=== PATIENT | female | born 1935 | race Caucasian/White ===

== ENCOUNTER → 2016-11-17 | Outpatient (CLI) | payer OTHER | LOC: BHLMT 14:30 | PROVIDERS: ATTEND Internal Medicine Cardiovascular Disease | DX: I25.10 Atherosclerotic heart disease of native coronary artery without angina pectoris (principal); I50.9 Heart failure, unspecified; I05.0 Rheumatic mitral stenosis; I38 Endocarditis, valve unspecified | CPT/HCPCS: 82607-90; 93005-PO ==

== ENCOUNTER 2016-12-10 09:08 | Day surgery (SDC) | payer OTHER ==
[2016-12-10] MEDS ORDERED: NS 1,000 ML IV ONE (09:12)
[2016-12-10] MEDS ORDERED: BENZOCAINE UNIT DOSE SPRAY HURRICAINE MM ONE (09:12)
[2016-12-10] MEDS ORDERED: fentaNYL 100 MCG/2 ML INJ IVP ONE (09:12)
[2016-12-10] MEDS ORDERED: MIDAZOLAM 2 MG/2 ML VIAL IVP ONE (09:12)
[2016-12-10] MEDS ORDERED: PROPOFOL 200 MG/20 ML VIAL IVP ONE (10:38)
--- NOTE | 2016-12-10 10:50 | CPEKG ---
Heart Rate: 84 RR Interval: 714 QRSD Interval: 148 QT Interval: 456 QTC Interval: 540 QRS [place]: -70 T Wave [place]: 111 EKG Severity - ABNORMAL ECG - EKG Impression: ATRIAL FIBRILLATION EKG Impression: LBBB EKG Impression: COMPARED WITH 05/29/2016, AF NOW PRESENT Electronically Signed By: Ludmila Calvo 10-Dec-2016 10:55:14
[2016-12-10] MEDS ORDERED: ATROPINE SULFATE 1 MG/10 ML SYR ONE (10:56)
[2016-12-10 11:02] LABS: APTT 28.2 SEC (23.0-38.0); INR 1.34 (0.83-1.16); PROTIME(PATIENT) 16.6 SEC (12.0-15.0)
[2016-12-10 11:09] LABS: ANION GAP 11 mEq/L (8-16); CARBON DIOXIDE 28 mEq/l (22-31); CHLORIDE 101 mEq/L (97-110); CREATININE 1.4 mg/dL (0.6-1.0); GLOMERULAR FILTRATION RATE 36; GLUCOSE 116 mg/dL (70-100); POTASSIUM 3.3 mEq/L (3.5-5.2); SODIUM 140 mEq/L (134-144)
== END 2016-12-10 13:09 | disposition home or self-care (01) ==
LOC: FCATH 09:08
PROVIDERS: ATTEND Internal Medicine Cardiovascular Disease
PROC: 4A02X4Z Measurement of Cardiac Electrical Activity, External Approach (ICD-10-PCS; principal; 2016-12-10)
DX: I48.0 Paroxysmal atrial fibrillation (principal); Z53.09 Procedure and treatment not carried out because of other contraindication; E87.6 Hypokalemia; I34.2 Nonrheumatic mitral (valve) stenosis; Z95.4 Presence of other heart-valve replacement; I25.10 Atherosclerotic heart disease of native coronary artery without angina pectoris; Z95.5 Presence of coronary angioplasty implant and graft; I42.9 Cardiomyopathy, unspecified; I50.22 Chronic systolic (congestive) heart failure; I27.2 Other secondary pulmonary hypertension; N18.9 Chronic kidney disease, unspecified
CPT/HCPCS: J0461; J2250; J3010

== ENCOUNTER 2016-12-12 12:24 | Day surgery (SDC) | payer OTHER ==
[2016-12-12] MEDS ORDERED: PROPOFOL 200 MG/20 ML VIAL IVP ONE (12:26)
[2016-12-12] MEDS ORDERED: BENZOCAINE UNIT DOSE SPRAY HURRICAINE MM ONE (12:26)
[2016-12-12] MEDS ORDERED: fentaNYL 100 MCG/2 ML INJ IVP ONE (12:26)
[2016-12-12] MEDS ORDERED: NS 500 ML IV ONE (12:26)
[2016-12-12] MEDS ORDERED: MIDAZOLAM 2 MG/2 ML VIAL IVP ONE (12:26)
--- NOTE | 2016-12-12 12:48 | CPEKG ---
Heart Rate: 101 RR Interval: 594 P-R Interval: 176 QRSD Interval: 140 QT Interval: 420 QTC Interval: 545 P [place]: 0 QRS [place]: -68 T Wave [place]: 101 EKG Severity - ABNORMAL ECG - EKG Impression: ATRIAL FIBRILLATION EKG Impression: LBBB EKG Impression: LVH WITH SECONDARY REPOLARIZATION ABNORMALITY EKG Impression: COMPARED WITH DEC 10 2016, NO SIG CHANGE Electronically Signed By: Ludmila Calvo 12-Dec-2016 13:48:06
[2016-12-12] MEDS ORDERED: ATROPINE SULFATE 1 MG/10 ML SYR ONE (13:18)
[2016-12-12 13:30] LABS: APTT 27.2 SEC (23.0-38.0); INR 1.26 (0.83-1.16); PROTIME(PATIENT) 15.8 SEC (12.0-15.0)
[2016-12-12 13:41] LABS: ANION GAP 11 mEq/L (8-16); CALCIUM 9.2 mg/dL (8.5-10.4); CARBON DIOXIDE 29 mEq/l (22-31); CHLORIDE 102 mEq/L (97-110); CREATININE 1.4 mg/dL (0.6-1.0); GLOMERULAR FILTRATION RATE 36; GLUCOSE 143 mg/dL (70-100); MAGNESIUM 2.2 mg/dL (1.6-2.3); POTASSIUM 4.2 mEq/L (3.5-5.2); SODIUM 142 mEq/L (134-144)
--- NOTE | 2016-12-12 14:07 | PDTEE1 ---
CÉSAR Cardioversion Procedure Procedure: Electrical Cardioversion, Transesophageal Echo Indications: Atrial Fibrillation Consent: Signed and in Chart Anticoagulation: Eliquis Procedural Details: Pads were placed in anterior-posterior position. CÉSAR probe was advanced and standard images obtained. There is no evidence of left atrial or left atrial appendage thrombus. Synchronized cardioversion attempt #1: 200J Synchronized cardioversion attempt #2: 300J Results: Normal sinus rhythm Conclusions: Successful CÉSAR Cardioversion Patient Problems: Problems Problem Status Onset Acute respiratory failure with hypoxemia Acute Afib Acute Aortic stenosis Acute CAD (coronary artery disease) Acute CHF (congestive heart failure) Acute Chronic Disease Mgmt/Transitional Care Acute DM (diabetes mellitus), type 2 Acute Diabetic leg ulcer Acute H/O heart artery stent Acute Mitral stenosis Acute Obesity (BMI 30-39.9) Acute
--- NOTE | 2016-12-12 14:11 | CPEKG ---
Heart Rate: 65 RR Interval: 923 P-R Interval: 224 QRSD Interval: 140 QT Interval: 480 QTC Interval: 500 P [place]: 71 QRS [place]: -68 T Wave [place]: 105 EKG Severity - ABNORMAL ECG - EKG Impression: SINUS RHYTHM WITH PAC EKG Impression: FIRST DEGREE AV BLOCK EKG Impression: LEFT BUNDLE BRANCH BLOCK EKG Impression: COMPARED WITH 12 DEC 2016 AT 12:46, NSR NOW PRESENT Electronically Signed By: Ludmila Calvo 12-Dec-2016 19:09:23
--- NOTE | 2016-12-16 07:47 | CPEKG ---
Heart Rate: 108 RR Interval: 556 QRSD Interval: 138 QT Interval: 416 QTC Interval: 558 QRS [place]: -74 T Wave [place]: 109 EKG Severity - ABNORMAL ECG - EKG Impression: WIDE COMPLEX TACHYCARDIA EKG Impression: NONSPECIFIC IVCD WITH LAD EKG Impression: MORPHOLOGY OF THE QRS IS IDENTICAL TO SINUS RHYTHM, BUT NO CLEAR "P" WAVES ARE EKG Impression: NOTED. CONSIDER SVT (AVNRT) GIVEN POSSIBLE RETROGRADE "P" IN "T" WAVE Electronically Signed By: Jack Carranza 18-Dec-2016 12:12:09
== END 2016-12-12 15:40 | disposition home or self-care (01) ==
LOC: FCATH 12:24
PROVIDERS: ATTEND Internal Medicine Cardiovascular Disease
PROC: 5A2204Z Restoration of Cardiac Rhythm, Single (ICD-10-PCS; principal; 2016-12-12)
PROC: B245ZZ4 Ultrasonography of Left Heart, Transesophageal (ICD-10-PCS; principal; 2016-12-12)
DX: I48.0 Paroxysmal atrial fibrillation (principal); I08.0 Rheumatic disorders of both mitral and aortic valves; I25.10 Atherosclerotic heart disease of native coronary artery without angina pectoris; I50.23 Acute on chronic systolic (congestive) heart failure; Z95.5 Presence of coronary angioplasty implant and graft; I42.9 Cardiomyopathy, unspecified; I27.2 Other secondary pulmonary hypertension; N18.4 Chronic kidney disease, stage 4 (severe); Z95.2 Presence of prosthetic heart valve; Z79.01 Long term (current) use of anticoagulants
CPT/HCPCS: J0461; J2704

== ENCOUNTER 2017-02-24 09:11 | Inpatient (IN) | payer OTHER ==
--- NOTE | 2017-02-24 09:29 | EDPHY ---
H & P Source: Patient, Family, EMS Exam Limitations: No limitations - Personal History Tetanus Vaccine Date: 01/2015 - Medical/Surgical History Hx Asthma: No Hx Chronic Respiratory Disease: No Hx Diabetes: Yes Hx Cardiac Disease: Yes Hx Renal Disease: No Hx Cirrhosis: No Hx Alcoholism: No Hx HIV/AIDS: No Hx Splenectomy or Spleen Trauma: No Other PMH: diabetes, heart disease, htn, kidney failure - Social History Smoking Status: Never smoked HPI/ROS: CHIEF COMPLAINT: Multiple falls, shoulder pain, weight gain HISTORY OF PRESENT ILLNESS: Patient arrives by EMS. She is seen at time of arrival. The report is of multiple falls over the past 3 days. This morning she fell attempting to step onto a scale while having her adult depends placed on her. She did not strike her head or lose consciousness. She has no headache or neck pain. No chest or back pain. She is complaining of bilateral shoulder pain. She is complaining of bilateral hip pain, left greater than right. [id number] pain. Unable to bear weight due to this. She also has more significant complaints of increasing lower extremity edema with 20 lb of weight gain over the past 1 month. No shortness of breath. No fever or chills. No cough. No urinary complaints. Her daughter is at bedside. 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 She does take Eliquis. No other associated complaints or modifying factors. REVIEW OF SYSTEMS: Ten systems reviewed and are negative unless otherwise noted in the HPI PAST MEDICAL HISTORY: Extensive. Reviewed as documented in the triage summary. Pertinent positives include insulin-dependent diabetic, atrial fibrillation chronic, Eliquis use. Medication list includes Synthroid, Lasix 80 bid, diltiazem, potassium supplements, metolazone, Cymbalta, Lipitor, NovoLog FlexPen 12 units before breakfast, 7 units before lunch, 6 units before supper and Lantus 30 units at bedtime. PCP: Dr. Gonzalez NEPHROLOGY: Dr. Simpson CARDIOLOGY: Dr. Cuevas, appointment with Ruel tomorrow SOCIAL HISTORY: Resides in assisted living at [facility] in [place], [place] FAMILY HISTORY: Noncontributory EXAMINATION General Appearance: Alert, no distress Head: normocephalic, atraumatic. No depression. No Whitten sign. No raccoon eyes. Eyes: Pupils equal and round, no conjunctival pallor or injection. EOMs intact ENT, Mouth: Mucous membranes moist. Airway widely patent. Neck: Normal inspection, supple, non-tender. No crepitus, step-off or deformity. He can ptosis noted Respiratory: Mild rhonchi. Mild crackles. No consolidation or diminishment. No retraction or is stressed Cardiovascular: Irregularly irregular rhythm. Intermittently tachycardic and normal rate. Systolic murmur. Pulses intact distally. Gastrointestinal: Obese abdomen is soft and nondistended. There is a easily reducible periumbilical hernia. No tympany rigidity. Back: non-tender, no bony abnormalities. No tenderness at any level of the spine. Neurological: GCS 15. A&O, nonfocal, strength is 4/5 in all 4 limbs. Skin: Warm and dry. There is extensive cellulitis of the lower extremities below the knees. There is extensive weeping of the lower extremities consistent with venous stasis ulcers. There are stage I pressure ulcers on the entire buttock and sacrum. There is stage I pressure ulcers of the shoulders. Extremities: Nontender, no pedal edema Psychiatric: Mood and affect normal DIFFERENTIAL DIAGNOSES: Including but not limited to congestive heart failure, pulmonary edema, ACS, cellulitis, DVT, stasis ulcers, peripheral edema, shoulder fracture, hip fracture, pneumonia, UTI MDM: 9:20 a.m. Multiple falls with extreme lower extremity edema, extremity cellulitis with venous stasis ulcers that appear to be infected, weight gain of 20 lb over the past month, shoulder and hip pain. I have ordered laboratory studies, CT scans of the head and neck, chest x-ray, x-rays of the shoulders and hips. She also has stage I pressure ulcers of the buttocks and sacrum. Wound cultures are being obtained, blood cultures being obtained. She is awake and alert no acute distress. She does not meet SIRS criteria at this time. Her daughter Sameera is at bedside and has augmented the history of present illness. 10:30 a.m. Leukocytosis with elevated lactic acid. Vital signs remained stable. She still does not meet SIRS criteria. Vancomycin with pharmacy dosing has been ordered. She is in no acute distress. Chest x-ray, shoulder x-ray is, hip x- rays reveal osteoarthritic changes only. No acute fractures. 11:04 a.m. Notified by radiologist Dr. Valdez. DVT studies of the lower extremities are inconclusive. Unable to visualize beyond the common formal veins due to body habitus. 11:50 a.m. Notified by radiologist Dr. Perez. CT scans of the head and neck reveal no acute findings. Chronic changes noted. Proceed with admission to the hospital 11:58 a.m. I discussed case with the hospitalist Dr. Bazzi. Patient will be admitted to Dr. Rene. She is admitted in stable condition. SUPERVISION: Patient was evaluated in conjunction with the supervising physician. Please see their note for details. (Mario Burgos) Constitutional: Initial Vital Signs Temperature (C) 36.5 C 02/24/17 09:43 Heart Rate 90 02/24/17 09:43 Respiratory Rate 18 02/24/17 09:43 Blood Pressure 117/79 02/24/17 09:43 O2 Sat (%) 99 02/24/17 09:43 O2 Delivery Mode Nasal Cannula O2 (L/minute) 2 Allergies/Adverse Reactions: sotalol Allergy (Verified 04/11/15 17:19) Home Medications: Medication Instructions Recorded Atorvastatin Calcium [Lipitor 20 20 mg PO HS 04/11/15 mg (*)] Cyanocobalamin [Vitamin B12 1,000 mcg IM Q30D 04/11/15 1000MCG/ML (*)] Levothyroxine [Synthroid 100 mcg 100 mcg PO DAILY06 04/11/15 (*)] Acetaminophen [Tylenol 325mg (*)] 325 - 650 mg PO Q4-6PRN PRN 03/05/16 Herbals/Supplements -Info Only 1 ea PO DAILY 03/05/16 Insulin Aspart [Novolog Flexpen] 6 unit SQ DAILY@18 03/05/16 Insulin Aspart [Novolog Flexpen] 7 unit SQ DAILY@12 03/05/16 Insulin Aspart [Novolog Flexpen] 12 unit SQ DAILY@03/05/16 Multivitamins [Multivitamin (*)] 1 each PO DAILY 03/05/16 Insulin Glargine [Lantus 100 30 units SC HS 05/26/16 UNITS/ML (*)] Polyethylene Glycol 3350 [Miralax 17 gm PO DAILY PRN #0 pkt 05/29/16 17 gm (*)] Apixaban [Eliquis] 2.5 mg PO BID 05/26/17 Cholecalciferol Vit D3 [Vitamin D3 2,000 units PO DAILY 12/12/16 2000 units tab (OTC)] Furosemide [Lasix 80 MG (*)] 80 mg PO BID@,13 12/12/16 Metolazone 2.5 mg PO TUFR 12/12/16 Potassium Cl [Klor-Con] 20 meq PO TUFR 12/12/16 Promethazine HCl [Phenergan 25mg 25 mg PO Q8HRS PRN 12/12/16 (*)] DULoxetine [Cymbalta 60 MG (*)] 60 mg PO DAILY 02/24/17 Diltiazem [Cardizem Immediate 30 mg PO BID 02/24/17 Release] Docusate Sodium [Colace 100 MG (*)] 100 mg PO BID PRN 02/24/17 Hydrocodone/Acetaminophen [Pearl 1 each PO Q4-6PRN PRN 02/24/17 5/325 (*)] Potassium Cl [Klor-Con] 10 meq PO SUMOWETHSA 02/24/17 Medical Decision Making ED Course/Re-evaluation: I have evaluated and participated in the management of this patient. My co- signature indicates that I have reviewed this chart and that I agree with the findings and the plan of care as documented. My personal history and physical findings include: Long-standing peripheral edema with recent erythema and warmth involving both lower extremities, worse on the left than on the right. No fever. Frequent falls. On examination this is an obese female in no acute distress. Lungs are clear to auscultation. Heart is regular rate and rhythm. Abdomen is soft and nontender. 3+ pitting edema bilateral lower extremities to the knees. Right lower extremity has warmth and erythema. Both legs with weeping. Both legs with signs of venous stasis. She is being admitted with lower extremity cellulitis. I reviewed the laboratory evaluation. She has received antibiotics, vancomycin. She is noted to have kidney disease and dosing is as per pharmacy. She does not meet SIRS criteria. (Nichole Lucero) - Data Points Laboratory Results: Laboratory Results 02/24/17 09:30 02/24/17 09:30 Microbiology Results: MICROBIOLOGY 02/24/17 09:37 Leg - Swab Gram Stain - Final 02/24/17 09:37 Leg - Swab Wound Culture - Preliminary Pseudomonas Aeruginosa Enterococcus Faecalis 02/24/17 09:37 Blood Blood Culture - Preliminary 02/24/17 10:15 Blood Blood Culture - Preliminary Medications Given: Apixaban (Eliquis) 2.5 mg PO BID [facility] Stop: 08/23/17 20:59 Last Admin: 02/26/17 10:09 Dose: 2.5 mg Atorvastatin Calcium (Lipitor) 20 mg PO HS [facility] Stop: 08/23/17 20:59 Last Admin: 02/25/17 20:22 Dose: 20 mg Cholecalciferol (Vitamin D) 2,000 units PO DAILY [facility] Stop: 08/24/17 08:59 Last Admin: 02/26/17 10:09 Dose: 2,000 units Diltiazem HCl (Cardizem Immediate Release) 30 mg PO BID [facility] Stop: 08/23/17 20:59 Last Admin: 02/26/17 10:09 Dose: 30 mg Duloxetine HCl (Cymbalta) 60 mg PO DAILY [facility] Stop: 08/23/17 14:59 Last Admin: 02/26/17 10:09 Dose: 60 mg Furosemide 80 mg/ Dextrose 50 mls @ 100 mls/hr IV BIDDIUR [facility] Stop: 08/23/17 15:44 Last Admin: 02/26/17 10:10 Dose: 50 mls Cefazolin Sodium/Dextrose (Ancef 1 Gm (Premix)) 50 mls @ 200 mls/hr IV Q8HRS [facility] PRN Reason: Protocol Stop: 03/27/17 13:59 Last Admin: 02/26/17 06:15 Dose: 50 mls Insulin Glargine (Lantus Syringe) 30 units SC HS [facility] Stop: 08/23/17 20:59 Last Admin: 02/25/17 21:06 Dose: 30 units Insulin Human Lispro (Humalog Lispro) 6 unit SC DAILY@1800 [facility] Stop: 08/23/17 17:59 Last Admin: 02/25/17 18:40 Dose: 6 units Insulin Human Lispro (Humalog Lispro) 7 unit SC DAILY@1200 [facility] Stop: 08/24/17 11:59 Last Admin: 02/25/17 13:47 Dose: 7 units Insulin Human Lispro (Humalog Lispro) 12 unit SC DAILY@0800 [facility] Stop: 08/24/17 07:59 Last Admin: 02/26/17 10:16 Dose: 12 units Levothyroxine Sodium (Synthroid) 100 mcg PO DAILY06 [facility] Stop: 08/24/17 05:59 Last Admin: 02/26/17 06:15 Dose: 100 mcg Metolazone (Zaroxolyn) 2.5 mg PO TUFR [facility] Stop: 08/23/17 14:59 Last Admin: 02/24/17 16:50 Dose: 2.5 mg Multivitamins (Tab-A-Tolu) 1 each PO DAILY [facility] Stop: 08/24/17 08:59 Last Admin: 02/26/17 10:25 Dose: 1 each Potassium Chloride (Klor-Con) 10 meq PO SUMOWETHSA [facility] Stop: 08/24/17 14:54 Last Admin: 02/25/17 13:44 Dose: 10 meq Potassium Chloride (Klor-Con) 20 meq PO [facility] Stop: 08/23/17 14:59 Last Admin: 02/24/17 16:50 Dose: 20 meq Discontinued Medications Diltiazem HCl (Cardizem Immediate Release) 30 mg PO BID [facility] Stop: 08/23/17 14:59 Last Admin: 02/24/17 19:24 Dose: Not Given Hydromorphone HCl (Dilaudid) 0.5 mg IVP ONCE ONE Stop: 02/24/17 17:13 Last Admin: 02/24/17 17:49 Dose: 0.5 mg Vancomycin HCl 1.25 gm/ (Dextrose) 250 mls @ 166.667 mls/hr IV ONCE ONE Stop: 02/24/17 12:59 Last Admin: 02/24/17 11:51 Dose: 250 mls Metolazone (Zaroxolyn) 2.5 mg PO ONCE ONE Stop: 02/26/17 09:01 Last Admin: 02/26/17 10:09 Dose: 2.5 mg Potassium Chloride (Klor-Con) 20 meq PO ONCE ONE Stop: 02/25/17 09:26 Last Admin: 02/25/17 10:28 Dose: 20 meq Potassium Chloride (Klor-Con) 60 meq PO ONCE ONE Stop: 02/26/17 05:47 Last Admin: 02/26/17 06:15 Dose: 60 meq Vancomycin HCl (Vancomycin Pharmacy To Dose, 10-15 Mcg/Ml) 1 each MISC AD ANAHI PRN Reason: Protocol Stop: 08/23/17 10:14 Last Admin: 02/24/17 11:57 Dose: Not Given Departure - Departure Disposition: [facility] In[facility] Acute Clinical Impression: Edema, peripheral Lower extremity cellulitis Qualifiers: Laterality: unspecified laterality Qualified Code(s): L03.119 - Cellulitis of unspecified part of limb Condition: Good
--- NOTE | 2017-02-24 09:38 | CPEKG ---
Heart Rate: 97 RR Interval: 619 QRSD Interval: 146 QT Interval: 408 QTC Interval: 519 QRS [place]: -74 T Wave [place]: 108 EKG Severity - ABNORMAL ECG - EKG Impression: ATRIAL FIBRILLATION EKG Impression: VENTRICULAR PREMATURE COMPLEX EKG Impression: NONSPECIFIC IVCD WITH LAD EKG Impression: LVH WITH SECONDARY REPOLARIZATION ABNORMALITY Electronically Signed By: Nichole Lucero 24-Feb-2017 17:09:39
[2017-02-24 09:50] LABS: % IMMATURE GRANULYOCYTES 0.4 % (0.0-1.1); ABSOLUTE IMMATURE GRANULOCYTES 0.06 10^3/uL (0.00-0.10); ADD DIFF? NO; ADD MORPH? YES; ADD SCAN? NO; ATYPICAL LYMPHOCYTE FLAG 0 (0-99); FRAGMENT RBC FLAG 20 (0-99); HEMATOCRIT 36.2 % (38.0-47.0); HEMOGLOBIN 11.3 g/dL (12.6-16.3); LEFT SHIFT FLG 0 (0-99); LIPEMIA HEMOLYSIS FLAG 80 (0-99); MEAN CELL HEMOGLOBIN 26.3 pg (27.9-34.1); MEAN CELL HEMOGLOBIN CONCENTR. 31.2 g/dL (32.4-36.7); MEAN CELL VOLUME 84.4 fL (81.5-99.8); MEAN PLATELET VOLUME 10.1 fL (8.7-11.7); PLATELET CLUMPS FLAG 20 (0-99); PLATELET COUNT 256 10^3/uL (150-400); RED BLOOD CELL COUNT 4.29 10^6/uL (4.18-5.33)
[2017-02-24 09:53] LABS: RED CELL DISTRIBUTION WIDTH 20.5 % (11.5-15.2)
[2017-02-24 09:59] LABS: APTT 29.6 SEC (23.0-38.0); INR 1.4 (0.83-1.16); PROTIME(PATIENT) 17.1 SEC (12.0-15.0)
[2017-02-24 10:06] LABS: ALANINE AMINOTRANSFERASE 38 IU/L (9-52); ALBUMIN 3.9 g/dL (3.5-5.0); ALKALINE PHOSPHATASE 125 IU/L (38-126); ANION GAP 18 mEq/L (8-16); ASPARTATE AMINOTRANSFERASE 34 IU/L (14-46); BILIRUBIN,TOTAL 0.8 mg/dL (0.1-1.4); BILIRUBIN-CONJUGATED 0.4 mg/dL (0.0-0.5); BILIRUBIN-UNCONJUGATED 0.4 mg/dL (0.0-1.1); CALCIUM 9.2 mg/dL (8.5-10.4); CARBON DIOXIDE 26 mEq/l (22-31); CHLORIDE 92 mEq/L (97-110); CREATININE 1.9 mg/dL (0.6-1.0); GLOMERULAR FILTRATION RATE 25; GLUCOSE 198 mg/dL (70-100); POTASSIUM 3.4 mEq/L (3.5-5.2); SODIUM 136 mEq/L (134-144); TOTAL PROTEIN 7.2 g/dL (6.3-8.2)
[2017-02-24 10:28] LABS: HYPOCHROMIA 1+; PLATELET ESTIMATE ADEQUATE (ADEQ); POLYCHROMASIA 1+
[2017-02-24 10:46] LABS: LACGHOST ORDER
[2017-02-24] MEDS ORDERED: VANCOMYCIN 1.25 GM in D5W 250 ML IV ONE (11:30)
[2017-02-24] MEDS ORDERED: ONDANSETRON 4 MG/2 ML VIAL IVP PRN (14:52)
[2017-02-24] MEDS ORDERED: ONDANSETRON DISINTEGRATING 4 MG TAB PO PRN (14:52)
[2017-02-24] MEDS ORDERED: POLYETHYLENE GLYCOL 3350 17 GM PKT PO PRN (14:55)
[2017-02-24] MEDS ORDERED: DOCUSATE SODIUM 100 MG CAP PO PRN (14:55)
[2017-02-24] MEDS ORDERED: PROMETHAZINE HCL 25 MG TAB PO PRN (14:55)
[2017-02-24] MEDS ORDERED: DILTIAZEM 30 MG TAB PO SCH (15:00)
[2017-02-24] MEDS ORDERED: METOLAZONE 2.5 MG TAB PO SCH (15:00)
[2017-02-24] MEDS ORDERED: FUROSEMIDE 100 MG/10 ML VIAL IVP SCH (15:00)
--- NOTE | 2017-02-24 15:06 | PDGENHP ---
History and Physical - Chief Complaint acute fall - History of Present Illness primary care provider: Dr. Abdi Gonzalez Primary analytical data miner: Dr. Darnell Cuevas Primary snow removal/plowing: Dr. Ramirez Simpson HPI: 81-year-old female presenting with acute fall characterized as mechanical and in the setting of weakness, occurring the day of presentation, in the context of several days of generalized weakness and falls. The patient's daughter provides the majority of the history, and reports that for approximately 1 week, the patient's lower extremities have become somewhat more erythematous and are demonstrating more skin breakdown, particularly on the left lower extremity anterior surface. She has attempted to continue to wrap the lower extremities and has also receive some advice to use compression stockings from her snow removal/plowing. These compression stockings seemed to have alleviated some of the edema but the level of edema seems to have persisted since the onset around June of 2016. Daughter reports that she has had intermittent incontinence, but over the past week the patient has been completely incontinent, which is unusual for her. Patient otherwise denies any dysuria. The patient denies any overt chest pain, usually experiences shortness of breath with physical activity and physical therapy. On the day of this presentation, the patient's physical therapist noted that her cognition seems to be slightly impaired. The patient's daughter also notes skin breakdown in the perineal folds and under her pannus, which has been unchanged after nystatin powder, seems to be somewhat alleviated by taking acidophilus. Patient has otherwise been taking all of her diuretics as scheduled, but has not taken any medications on the morning of this presentation. The patient has a scheduled appointment with Ruel Green tomorrow at [facility], but the patient sought medical attention today after she experienced another fall and there were concerns about her ambulatory abilities. History Information - Allergies/Home Medication List Allergies/Adverse Reactions: sotalol Allergy (Verified 04/11/15 17:19) Home Medications: Atorvastatin Calcium [Lipitor 20 mg (*)] 20 mg PO HS 04/11/15 [Last Taken ] Cyanocobalamin [Vitamin B12 1000MCG/ML (*)] 1,000 mcg IM Q30D 04/11/15 [Last Taken 01/28/17] Levothyroxine [Synthroid 100 mcg (*)] 100 mcg PO DAILY06 04/11/15 [Last Taken ] Acetaminophen [Tylenol 325mg (*)] 325 - 650 mg PO Q4-6PRN PRN 03/05/16 [Last Taken 04/08/16] Herbals/Supplements -Info Only 1 ea PO DAILY 03/05/16 [Last Taken 12/09/16] Insulin Aspart [Novolog Flexpen] 6 unit SQ DAILY@18 03/05/16 [Last Taken ] Insulin Aspart [Novolog Flexpen] 7 unit SQ DAILY@12 03/05/16 [Last Taken ] Insulin Aspart [Novolog Flexpen] 12 unit SQ DAILY@08 03/05/16 [Last Taken ] Multivitamins [Multivitamin (*)] 1 each PO DAILY 03/05/16 [Last Taken 02/23/17] Insulin Glargine [Lantus 100 UNITS/ML (*)] 30 units SC HS 05/26/16 [Last Taken 02/23/17] Apixaban [Eliquis] 2.5 mg PO BID 12/12/16 [Last Taken 02/23/17 21:00] Cholecalciferol Vit D3 [Vitamin D3 2000 units tab (OTC)] 2,000 units PO DAILY [Last Taken 02/23/17] Furosemide [Lasix 80 MG (*)] 80 mg PO BID@12/12/16 [Last Taken 02/23/17 13 :00] Metolazone 2.5 mg PO TUFR 12/12/16 [Last Taken 02/21/17] Potassium Cl [Klor-Con] 20 meq PO FR 12/12/16 [Last Taken 02/20/17] Promethazine HCl [Phenergan 25mg (*)] 25 mg PO Q8HRS PRN 12/12/16 [Last Taken ] DULoxetine [Cymbalta 60 MG (*)] 60 mg PO DAILY 02/24/17 [Last Taken 02/23/17] Diltiazem [Cardizem Immediate Release] 30 mg PO BID 02/24/17 [Last Taken 21:00] Docusate Sodium [Colace 100 MG (*)] 100 mg PO BID PRN 02/24/17 [Last Taken 02/23] Hydrocodone/Acetaminophen [Vale 5/325 (*)] 1 each PO Q4-6PRN PRN 02/24/17 [ Last Taken 02/24/17] Potassium Cl [Klor-Con] 10 meq PO SUMOWETHSA 02/24/17 [Last Taken 02/23/17] I have personally reviewed and updated: family history, medical history, social history, surgical history - Past Medical History Additional medical history: CAD s/p PCI. PermanentAfib on eliquis and failed DCCV 12/03. systolic CHF, Ef 40%-50%. CKD stage 3 (baseline 1.9). Aortic stenosis s/p TAVR (06/2015). severe pulmonary HTN. s/p Vfib cardiac arrest ( 2010). h/o fall resulting in b/l intracranial hemorrhages, managed nonoperatively. hypothyroidism. chronic venous stasis. localized uterine ca - Surgical History Additional surgical history: hysterectomy (for localized uterine ca, 2006). b/ l total knee replacements. TAVR 2014. DC cardioversion and transesophageal echocardiogram November of 2016 - Family History Additional family history: M: CAD. S: cancer, alzheimer's - Social History Smoking Status: Never smoked Alcohol Use: None Drug Use: None Additional social history: Pt currently resides at [facility], has a daughter that is involved and lives nearby. Uses a walker to ambulate Review of Systems ROS: 10pt was reviewed & negative except for what was stated in HPI & below Constitutional: Reports: weakness Respiratory: Reports: shortness of breath Genitourinary: Reports: incontinence Skin: Reports: other (erythema, weeping, ulcerations bilat LE) Physical Exam Temp Pulse Resp BP Pulse Ox 36.4 C 87 13 130/70 H 98 02/24/17 13:51 02/24/17 13:51 02/24/17 13:51 02/24/17 13:51 02/24/17 13:51 O2 (L/minute) 2 Constitutional: no apparent distress, not in pain, chronically ill appearing, obese, No uncomfortable Eyes: PERRL, anicteric sclera, EOMI Ears, Nose, Mouth, Throat: hearing normal, dry mucous membranes Cardiovascular: systolic murmur (II/ at sternum), irregularly irregular, JVD, edema (2+ bilat LE), No tachycardia Respiratory: no respiratory distress, inspiratory crackles (faint), No expiratory wheeze, No bronchial breath sounds Gastrointestinal: normoactive bowel sounds, soft, non-tender abdomen, no palpable masses, other (non-tender umbilical hernia) Skin: other (blanching erythema bilat calves w/ ulcerations on LLE and pustulent exudate, weeping) Musculoskeletal: other (ROM limited bilat ankles 2/2 edema, non-tender) Neurologic: sensation intact bilaterally, weakness (motor 3/5 bilat LE), other ( AAOx2 (person and time, not place)) Psychiatric: interacting appropriately, not anxious, not encephalopathic, thought process linear Lab Data & Imaging Review 02/24/17 09:30 02/24/17 09:30 WBC 14.13 10^3/uL (3.80-9.50) H 02/24/17 09:30 RBC 4.29 10^6/uL (4.18-5.33) 02/24/17 09:30 Hgb 11.3 g/dL (12.6-16.3) L 02/24/17 09:30 Hct 36.2 % (38.0-47.0) L 02/24/17 09:30 MCV 84.4 fL (81.5-99.8) 02/24/17 09:30 MCH 26.3 pg (27.9-34.1) L 02/24/17 09:30 MCHC 31.2 g/dL (32.4-36.7) L 02/24/17 09:30 RDW 20.5 % (11.5-15.2) H 02/24/17 09:30 Plt Count 256 10^3/uL (150-400) 02/24/17 09:30 MPV 10.1 fL (8.7-11.7) 02/24/17 09:30 Neut % (Auto) 83.9 % (39.3-74.2) H 02/24/17 09:30 Lymph % (Auto) 9.3 % (15.0-45.0) L 02/24/17 09:30 [place] % (Auto) 5.5 % (4.5-13.0) 02/24/17 09:30 Eos % (Auto) 0.5 % (0.6-7.6) L 02/24/17 09:30 Baso % (Auto) 0.4 % (0.3-1.7) 02/24/17 09:30 Nucleat RBC Rel Count 0.0 % (0.0-0.2) 02/24/17 09:30 Absolute Neuts (auto) 11.86 10^3/uL (1.70-6.50) H 02/24/17 09:30 Absolute Lymphs (auto) 1.31 10^3/uL (1.00-3.00) 02/24/17 09:30 Absolute Monos (auto) 0.78 10^3/uL (0.30-0.80) 02/24/17 09:30 Absolute Eos (auto) 0.07 10^3/uL (0.03-0.40) 02/24/17 09:30 Absolute Basos (auto) 0.05 10^3/uL (0.02-0.10) 02/24/17 09:30 Absolute Nucleated RBC 0.00 10^3/uL (0-0.01) 02/24/17 09:30 Immature Gran % 0.4 % (0.0-1.1) 02/24/17 09:30 Immature Gran # 0.06 10^3/uL (0.00-0.10) 02/24/17 09:30 Platelet Estimate ADEQUATE (ADEQ) 02/24/17 09:30 Polychromasia 1+ H 02/24/17 09:30 Hypochromasia 1+ H 02/24/17 09:30 PT 17.1 SEC (12.0-15.0) H 02/24/17 09:30 INR 1.40 (0.83-1.16) H 02/24/17 09:30 APTT 29.6 SEC (23.0-38.0) 02/24/17 09:30 VBG Lactic Acid 1.3 mmol/L (0.7-2.1) 02/24/17 11:38 Sodium 136 mEq/L (134-144) 02/24/17 09:30 Potassium 3.4 mEq/L (3.5-5.2) L 02/24/17 09:30 Chloride 92 mEq/L (97-110) L 02/24/17 09:30 Carbon Dioxide 26 mEq/l (22-31) 02/24/17 09:30 Anion Gap 18 mEq/L (8-16) H 02/24/17 09:30 BUN 55 mg/dL (7-23) H 02/24/17 09:30 Creatinine 1.9 mg/dL (0.6-1.0) H 02/24/17 09:30 Estimated GFR 25 02/24/17 09:30 Glucose 198 mg/dL (70-100) H 02/24/17 09:30 Calcium 9.2 mg/dL (8.5-10.4) 02/24/17 09:30 Total Bilirubin 0.8 mg/dL (0.1-1.4) 02/24/17 09:30 Conjugated Bilirubin 0.4 mg/dL (0.0-0.5) 02/24/17 09:30 Unconjugated Bilirubin 0.4 mg/dL (0.0-1.1) 02/24/17 09:30 AST 34 IU/L (14-46) 02/24/17 09:30 ALT 38 IU/L (9-52) 02/24/17 09:30 Alkaline Phosphatase 125 IU/L (38-126) 02/24/17 09:30 Troponin I 0.090 ng/mL (0-0.034) H 02/24/17 09:30 NT-Pro-B Natriuret Pep 6650 pg/mL (0-450) H 02/24/17 09:30 Total Protein 7.2 g/dL (6.3-8.2) 02/24/17 09:30 Albumin 3.9 g/dL (3.5-5.0) 02/24/17 09:30 Lipase 65.0 IU/L (23-300) 02/24/17 09:30 Visualized and Interpreted Chest x-ray results: Yes Chest X-Ray results: other (chronic pulm vasc distension) Visualized and Interpreted EKG results: Yes EKG Interpretation: Positive for: other (Afib, IVCD) Assessment & Plan Assessment: 81-year-old female presenting with acute cellulitis in the setting of chronic venous stasis, acute systolic CHF exacerbation. Plan: 1. Cellulitis. Acute, evidenced by leukocytosis, worsening erythema and ulcerations on the left lower extremity, in the setting of venous stasis and propensity for developing cellulitis -wound care consultation -infectious Disease consultation requested, given the patient is a wound care clinic patient -reviewed outside records including 09/23/[address] Dr. Natali Arce , reporting the patient has venous insufficiency, no cellulitis at that time, recommended wrapping the wounds regularly -IV vancomycin administered in the emergency department given the patient's frequency of exposure to the healthcare setting and risk of MRSA, continue -blood culture sent, pending -I suspect there is not underlying DVT given the patient is on systemic anticoagulation 2. systolic congestive heart failure exacerbation. Acute on chronic, new problem this provider, further workup indicated. Evidenced by weight gain of 3.5 kg from her discharge weight on 12/12/2016 at her cardioversion, increased lower extremity edema, increased abdominal girth, pulmonary vascular changes on chest x-ray, BNP 6500 - discussed with Dr. Jack Carranza, cardiology consultation appreciated -patient has been adherent to her outpatient diuretics and may need dose titration after we diurese off several kg of water weight -give 80 mg of IV Lasix now with her Thursday dosage of 2.5 mg metolazone, continue IV Lasix twice daily and titrate based on cardiology recommendations -get echocardiogram to gauge ejection fraction, last ejection fraction 40-50% -monitor daily weights 3. Chronic kidney disease stage 3. Baseline creatinine is 1.5-2.0, currently at 1.9 with an elevated BUN, potentially demonstrating poor renal perfusion in the setting of CHF exacerbation -monitor renal function closely while diuresing aggressively - discussed with patient, daughter, nurse, agree that Avelar catheter may be necessary for strict I& O monitoring in the setting of worsening incontinence, patient is currently considering -monitor strict I&Os 4. permanent atrial fibrillation. Patient's most recent cardioversion was unsuccessful, and she is currently in atrial fibrillation on EKG, continue her low-dose diltiazem and systemic anticoagulation 5. diabetes mellitus type 2. Continue home dosage of insulin 6. Coronary artery disease. Chronic, currently no chest pain, her troponin level is 0.09 in the setting of CHF, indicating high risk of morbidity and/or mortality, continue to monitor closely on telemetry 7. Venous stasis. Chronic, wound care consultation appreciated Diet. Cardiac diet Prophylaxis. High risk patient, renally dosed Eliquis Code. Do not resuscitate per patient, her daughter is her MPOA Disposition. Anticipated discharge uncertain this time, anticipated length stay is greater than 48 hours warranting inpatient admission status for reasonable medical necessity including acute cellulitis in the setting of acute systolic CHF exacerbation. Discussed with Mario Burgos, emergency department provider, he has shared with me patient's most updated version of home medications.
--- NOTE | 2017-02-24 16:31 | PDCARPN ---
Cardiology Progress Note Chief Complaint: Patient was rather somnolent today, but voiced no clear cardiovascular complaints Assessment/Plan: Assessment: Patient is an 81 y/o female, well known to [facility], with history of valvular heart disease s/p TAVR (2014), CAD with non critical lesions, CMP (EF of 45% in the past with documentation of improvement post TAVR to 55%), CHF ( history), pHTN (60 mm Hg), pAF, now thought to more permanent, HTN, DM with neuropathy, HLP, and arthritis (affecting shoulders and hips), and renal insufficiency, who presented to [facility] after fall. Vast majority of the history was provided by daughter, present with the patient in her room today. As a result of the pain from the fall, the patient was given an extra dose of pain medication at home, which may contribute to some degree of the somnolence noted. No voiced complaints of chest pains or pressure. No PND or orthopnea. Ongoing issues with bilateral lower extremity cellulitis (and infectious disease has been consulted). Weight gain of over 10 pounds has been noted, with bilateral lower extremity edema to above the knee. Bedside echocardiography with EF of 45-55% (somewhat limited windows given patient's body position). Unchanged RVSP from prior echo. More RV dilation was noted and as a result, more TR (mild in past, more moderate at present). Outpatient office note from 01-19-17 was reviewed with the daughter today. At that time, the patient was doing well. Plan: (1) Agree with plan for IV diuresis - patient to have Avelar placed (2) ID consultation has been rendered and IV antibiotics have been started (3) Maintain therapy on statins for history of HLP (4) Eliquis was started after issues with bleeding noted with coumadin. Would continue this therapy for CVA prophylaxis given chronic atrial fibrillation (5) Aggressive DM control should be continued (6) Cardizem should continue for history of HTN. Some rate control assistance is noted with this therapy as well (7) Would consider nephrology input over hospital stay given chronic renal insufficiency history. Will follow patient through hospital stay Subjective: No cardiovascular complaints. Reviewed/Discussed With: family, hospitalist, multidisciplinary team Objective: Vital Signs (8 Hrs) Temp Pulse Resp BP Pulse Ox 02/24/17 13:51 36.4 C 87 13 130/70 H 98 02/24/17 12:38 89 16 131/78 H 92 Intake/Output (24 Hrs) 02/23/17 02/24/17 02/25/17 05:59 05:59 05:59 Intake Total 250 Balance 250 Intake: IV Infused (ml) 250 Other: Weight 113 kg Result Diagrams: 02/24/17 09:30 02/24/17 09:30 EKG: atrial fibrillation with IVCD Echocardiogram: low normal LVEF (45-50%). Moderate TR with unchanged RVSP. Moderate RV dilation (from mild in past). - Physical Exam Constitutional: no apparent distress, obese Eyes: PERRL, EOMI Ears, Nose, Mouth, Throat: moist mucous membranes Cardiovascular: systolic murmur, irregularly irregular, jugular vein distention Peripheral Pulses: 1+: dorsalis-pedis (R), dorsalis-pedis (L) Respiratory: reduced air movement Gastrointestinal: normoactive bowel sounds, no tenderness Skin: no rashes, other (2 bilateral pitting edema to BLE) Neurologic: AAOx3, CN II-XII grossly intact Psychiatric: cooperative, interactive, encephalopathic ICD10 Worksheet Patient Problems: Problems Problem Status Onset Edema, peripheral Acute Lower extremity cellulitis Acute Acute respiratory failure with hypoxemia Acute Afib Acute Aortic stenosis Acute CAD (coronary artery disease) Acute CHF (congestive heart failure) Acute Chronic Disease Mgmt/Transitional Care Acute DM (diabetes mellitus), type 2 Acute Diabetic leg ulcer Acute H/O heart artery stent Acute Mitral stenosis Acute Obesity (BMI 30-39.9) Acute
[2017-02-24] MEDS: POTASSIUM CL 10 MEQ TAB PO SCH (16:50)
[2017-02-24] MEDS: DULoxetine 60 MG CAP PO SCH (16:50)
[2017-02-24] MEDS: FUROSEMIDE 80 MG in D5W 50 ML IV SCH (16:51)
[2017-02-24] MEDS ORDERED: HYDROmorphONE/DILAUDID 1 MG/ML SYR IVP ONE (17:12)
[2017-02-24] MEDS ORDERED: INSULIN ASPART 6 UNIT SQ SCH (18:00)
[2017-02-24 19:02] LABS: COLOR YELLOW; LEUKOCYTE ESTERASE,URINE 3+ (NEGATIVE); NITRITE,URINE NEGATIVE (NEGATIVE)
[2017-02-24 19:16] LABS: BACTERIA 3+ /hpf (NONE SEEN); HYALINE CASTS 25-50 /lpf (0-1); WBC,URINE 50-182 /hpf (0-3)
[2017-02-24] MEDS: INSULIN LISPRO 100 UNIT/ML SC SCH (19:24)
[2017-02-24] MEDS: ATORVASTATIN CALCIUM 20 MG TAB PO SCH (20:52)
[2017-02-24] MEDS: APIXABAN 2.5 MG TAB PO SCH (20:52)
[2017-02-24] MEDS: DILTIAZEM 30 MG TAB PO SCH (20:53)
[2017-02-24] MEDS: INSULIN GLARGINE 100 UNITS/ML SYRINGE SC SCH (22:09)
[2017-02-25 05:24] LABS: % IMMATURE GRANULYOCYTES 0.8 % (0.0-1.1); ABSOLUTE IMMATURE GRANULOCYTES 0.09 10^3/uL (0.00-0.10); ADD DIFF? NO; ADD MORPH? NO; ADD SCAN? NO; ATYPICAL LYMPHOCYTE FLAG 10 (0-99); FRAGMENT RBC FLAG 20 (0-99); HEMATOCRIT 32.8 % (38.0-47.0); HEMOGLOBIN 10.3 g/dL (12.6-16.3); LEFT SHIFT FLG 0 (0-99); LIPEMIA HEMOLYSIS FLAG 80 (0-99); MEAN CELL HEMOGLOBIN 26.1 pg (27.9-34.1); MEAN CELL HEMOGLOBIN CONCENTR. 31.4 g/dL (32.4-36.7); MEAN CELL VOLUME 83.2 fL (81.5-99.8); MEAN PLATELET VOLUME 10.2 fL (8.7-11.7); PLATELET CLUMPS FLAG 0 (0-99); PLATELET COUNT 239 10^3/uL (150-400); RED BLOOD CELL COUNT 3.94 10^6/uL (4.18-5.33)
[2017-02-25 05:34] LABS: ANION GAP 13 mEq/L (8-16); CALCIUM 8.6 mg/dL (8.5-10.4); CARBON DIOXIDE 27 mEq/l (22-31); CHLORIDE 95 mEq/L (97-110); CREATININE 1.7 mg/dL (0.6-1.0); GLOMERULAR FILTRATION RATE 29; GLUCOSE 107 mg/dL (70-100); POTASSIUM 3.2 mEq/L (3.5-5.2); SODIUM 135 mEq/L (134-144)
[2017-02-25] MEDS ORDERED: INSULIN ASPART 12 UNIT SQ SCH (08:00)
[2017-02-25] MEDS: INSULIN LISPRO 100 UNIT/ML SC SCH ×3 (08:37→18:40)
[2017-02-25] MEDS: FUROSEMIDE 80 MG in D5W 50 ML IV SCH ×2 (08:38→15:48)
[2017-02-25] MEDS: DULoxetine 60 MG CAP PO SCH (08:44)
[2017-02-25] MEDS: DILTIAZEM 30 MG TAB PO SCH ×2 (08:44→20:22)
[2017-02-25] MEDS: LEVOTHYROXINE 100 MCG TAB PO SCH (08:44)
[2017-02-25] MEDS: APIXABAN 2.5 MG TAB PO SCH ×2 (08:44→20:22)
[2017-02-25] MEDS: CHOLECALCIFEROL VIT D3 2,000 UNITS TAB/CAP PO SCH (08:44)
[2017-02-25] MEDS: MULTIVITAMINS 1 EACH TAB PO SCH (08:44)
[2017-02-25] MEDS ORDERED: Herbals/Supplements -Info Only PO SCH (09:00)
[2017-02-25] MEDS ORDERED: POTASSIUM CL 20 MEQ TAB PO ONE (09:25)
--- NOTE | 2017-02-25 09:57 | ECHO ---
[id number] + + [phone] : : [place] [id number] : : [phone] + Adult Echocardiographic Report + --+ :Name: GRIFFIN SMYTH JStudy Date: 02/24/2017 03:41 PM : : Hospital Admission Number: [id number] Location: 2 16: :: 1935 Gender: Female Height: 65 in : :Age: 81 yrs Race: WH Weight: 250 lb : :Reason For Study: Eval EF/TAVR : : BSA: 2.2 meters2 : + --+ MMode/2D Measurements \T\ Calculations LVIDd: 4.5 cm EDV(Teich): 91.2 ml Ao root diam: 3.1 cm LA dimension: 4.2 cm Normal Measurement Values: + + :LVIDd (3.5-5.7cm) IVSd (0.6-1.1cm) LVPWd (0.6-1.1cm) Aortic Root (2.0-3.7cm)Left Atrium (1.5-4.0cm): :LV Vol(d) (76-115ml) LV Vol(s) (29-48ml) Ejec Fraction (50-65%)PV Juan Manuel (0.6- 1.2m/s) TV Juan Manuel (0.4-1.0m/s) : :MV E Juan Manuel (0.8-1.0m/s)MV A Juan Manuel (0.3-1.0m/s)LVOT Juan Manuel (0.7-1.2m/s) Asc Ao Juan Manuel ( 0.9-1.8m/s) : + + Doppler Measurements \T\ Calculations MV dec time: MV V2 max: MV P1/2t max juan manuel: TR max juan manuel: 0.26 sec 188.6 cm/sec 203.8 cm/sec 344.8 cm/sec MV max PG: MV P1/2t: 100.5 msec TR max P.2 mmHg MVA(P1/2t): 2.2 cm2 47.6 mmHg MV V2 mean: MV dec slope: RAP systole: 122.3 cm/sec 10.0 mmHg MV mean P.0 cm/sec2 RVSP(TR): 6.8 mmHg 57.6 mmHg MV V2 VTI: 46.8 cm Left Ventricle The left ventricle is normal in size. There is normal left ventricular wall thickness. Ejection Fraction = 45-50%. Flattened septum is consistent with RV pressure/volume overload. Right Ventricle The right ventricle is moderately dilated. The right ventricular systolic function is moderate to severely reduced. Atria The left atrium is mildly dilated. The right atrium is moderately dilated. The interatrial septum is intact with no evidence for an atrial septal defect. Mitral Valve There is severe mitral annular calcification. There is mild to moderate mitral stenosis. MV mean PG is 6mmHG. MV max PG is 14mmHG (probable underestimated due to angle). There is mild mitral regurgitation. Tricuspid Valve Normal tricuspid valve. There is moderate to severe tricuspid regurgitation. Right ventricular systolic pressure is 58mmHg. Aortic Valve There is no aortic stenosis. There is a 26mm Lindo Saptien TAVR aortic valve present. No accurate mean gradient was obtained but velocities are normal. Pulmonic Valve The pulmonic valve is normal in structure and function. Trace pulmonic valvular regurgitation. Great Vessels The aortic root is normal size. Pericardium/Pleural Fat pad vs. trace anterior pericardial effusion. Conclusion A complete two-dimensional transthoracic echocardiogram was performed (2D, M-mode, Doppler and color flow Doppler). Technically limited study. Ejection Fraction = 45-50%. Flattened septum is consistent with RV pressure/volume overload. The right ventricle is moderately dilated. The right ventricular systolic function is moderate to severely reduced. The left atrium is mildly dilated. The right atrium is moderately dilated. There is severe mitral annular calcification. MV mean PG is 6mmHG. MV max PG is 14mmHG (probable underestimated due to angle). There is mild mitral regurgitation. There is moderate to severe tricuspid regurgitation. Right ventricular systolic pressure is 58mmHg. There is a 26mm Lindo Saptien TAVR aortic valve present. No accurate mean gradient was obtained but velocities are normal. Trace pulmonic valvular regurgitation. Fat pad vs. trace anterior pericardial effusion. Final Reading Physician: Jersey Steele signed on 02/25/2017 09:56 AM Ordering Physician: Jack Rene Performed By: Deepika Timmons RDCS
--- NOTE | 2017-02-25 10:33 | PCMIDPN ---
Assessment/Plan: # RLE cellulitis: difficult exam with CHERELLE due to chronic venous insufficiency as well as other reasons for CHERELLE including RHF, renal insuf - but disproportionate exam with blanching erythema on the right in stocking distribution and mild elevation WBC on admit. Wound cultures shows NLF GNR but doubt this is etiology of cellulitis, suspect streptococcus most strongly as cause of infection and suspect NLF GNR is colonizer of wounds. --dc vancomycin --start cefazolin --elevated LE --wound care consult #ARF - slightly above baseline at admit, trending down medication vancomycin IV, # 1 microbiology 02/24/2017 blood cultures ( 2) pending 02/24/2017 wound cultures 3+ non lactose fermenting gram-negative kane Care coordinated with Dr. Rene Subjective: 81 y/o female, h/o valvular heart disease s/p TAVR, CAD, CHF, pulm HTN , AF, HTN, DM with neuropathy, LE venous insufficiency, and renal insufficiency who was brought to ER last night after multiple falls. I previously saw patient in wound care for management of lower extremity venous insufficiency and venous stasis ulcers. Upon evaluation in the emergency room last night it was felt that she had bilateral lower extremity cellulitis and was started on IV vancomycin. Patient has no complaints of her lower extremities Today. Objective: Vital Signs Temp Pulse Resp BP Pulse Ox 36.6 C 95 20 122/72 H 95 02/25/17 07:59 02/25/17 07:59 02/25/17 07:59 02/25/17 08:44 02/25/17 07:59 Laboratory Results 02/25/17 04:23 02/25/17 04:23 02/24/17 02/25/17 02/26/17 05:59 05:59 05:59 Intake Total 2970 150 :Balance 2970 150 CXR: prominent pulmonary vascularity, enlarged CMS Head CT: chr microvascular disease, no acute change B DVT study negative PE afebrile throughout hospital course General: Obese woman lying in bed no acute distress HEENT dry mucous membranes, fair dentition cardiovascular: Irregularly irregular, systolic murmur Chest: breathing easy, decreased bs bases abdomen: Soft nontender bowel sounds present : No Avelar Extremity exam: bilateral lower extremity edema, 3+ ; stocking distribution erythema right lower extremity, some chronic pinkness of the left lower extremity but does not appear cellulitic. superficial venous stasis ulcer, 2 cm left lateral ankle and 1 cm wound right lateral ankle . Lower extremity pulses nonpalpable, normal capillary refill. Skin: no rashes other than noted above - Time Spent With Patient Time Spent with Patient: greater than 35 minutes Time Spent with Patient: Greater than 35 minutes spent on this patients care, greater than 50% of time spent counseling, educating, and coordinating care regarding the above mentioned plan. ICD10 Worksheet Patient Problems: Problems Problem Status Onset Edema, peripheral Acute Lower extremity cellulitis Acute Acute respiratory failure with hypoxemia Acute Afib Acute Aortic stenosis Acute CAD (coronary artery disease) Acute CHF (congestive heart failure) Acute Chronic Disease Mgmt/Transitional Care Acute DM (diabetes mellitus), type 2 Acute Diabetic leg ulcer Acute H/O heart artery stent Acute Mitral stenosis Acute Obesity (BMI 30-39.9) Acute
[2017-02-25] MEDS ORDERED: INSULIN ASPART 7 UNIT SQ SCH (12:00)
[2017-02-25] MEDS ORDERED: VANCOMYCIN HCL/NORMAL SALINE 250 ML IV SCH (12:00)
[2017-02-25] MEDS: POTASSIUM CL 10 MEQ TAB PO SCH (13:44)
--- NOTE | 2017-02-25 15:16 | PDCARPN ---
Cardiology Progress Note Chief Complaint: Patient states that she is not feeling well today with shoulder and hip pains being the chief complaint Assessment/Plan: Assessment: 02-25-17 Diuresis was started with intravenous therapy yesterday. No changes (or minimal improvement) to renal function. Weights are up almost 5 kg (which is difficult to explain) and question the measurements on two different scales ( one from the ER and one from the flood). Would continue IV diuresis today given these findings. No complaints of chest pains or pressure, no PND or orthopnea. Patient was sitting up on her chair today. ID with manipulation of therapy based on results that are being noted. BNR levels are >6000 (noted to be >7000 in the Fall of last year). 02-24-17 Patient is an 81 y/o female, well known to [facility], with history of valvular heart disease s/p TAVR (2014), CAD with non critical lesions, CMP (EF of 45% in the past with documentation of improvement post TAVR to 55%), CHF ( history), pHTN (60 mm Hg), pAF, now thought to more permanent, HTN, DM with neuropathy, HLP, and arthritis (affecting shoulders and hips), and renal insufficiency, who presented to [facility] after fall. Vast majority of the history was provided by daughter, present with the patient in her room today. As a result of the pain from the fall, the patient was given an extra dose of pain medication at home, which may contribute to some degree of the somnolence noted. No voiced complaints of chest pains or pressure. No PND or orthopnea. Ongoing issues with bilateral lower extremity cellulitis (and infectious disease has been consulted). Weight gain of over 10 pounds has been noted, with bilateral lower extremity edema to above the knee. Bedside echocardiography with EF of 45-55% (somewhat limited windows given patient's body position). Unchanged RVSP from prior echo. More RV dilation was noted and as a result, more TR (mild in past, more moderate at present). Outpatient office note from 01-19-17 was reviewed with the daughter today. At that time, the patient was doing well. Plan: (1) Continue IV diuresis (2) ID to continue to manage lower extremity cellulitis therapy (3) Statins to continue with HLP (4) Eliquis for CVA prophylaxis given atrial fibrillation history (5) Cardizem for HTN some degree of rate control assistance to continue (6) Aggressive DM control to continue (7) Strict ins/outs (as much as is possible with the patient's limitations Subjective: Patient with complaints of shoulder and hip pains Reviewed/Discussed With: hospitalist, multidisciplinary team Objective: Vital Signs (8 Hrs) Temp Pulse Resp BP Pulse Ox 02/25/17 11:07 36.7 C 103 H 20 136/87 H 97 02/25/17 08:44 122/72 H 02/25/17 07:59 36.6 C 95 20 122/72 H 95 Intake/Output (24 Hrs) 02/24/17 02/25/17 02/26/17 05:59 05:59 05:59 Intake Total 2970 150 Balance 2970 150 Intake: Oral (ml) 2720 150 IV Infused (ml) 250 Other: Weight 113 kg 117.1 kg Number of Voids Incontinence 4 1 Number of Stools Toilet 1 Bladder Scan Volume (ml) Incontinence 355 Toilet 80 Result Diagrams: 02/25/17 04:23 02/25/17 04:23 Telemetry: atrial fibrillation with controlled ventricular response - Physical Exam Constitutional: obese, general pain Eyes: PERRL, EOMI Ears, Nose, Mouth, Throat: moist mucous membranes Cardiovascular: systolic murmur, irregularly irregular, No jugular vein distention Peripheral Pulses: 2+: dorsalis-pedis (R), dorsalis-pedis (L) Respiratory: reduced air movement, dullness to percussion Gastrointestinal: normoactive bowel sounds Skin: other (moderate 2+ bilateral pitting edema to lower extremities) Neurologic: AAOx3, CN II-XII grossly intact Psychiatric: cooperative, interactive, following commands ICD10 Worksheet Patient Problems: Problems Problem Status Onset Edema, peripheral Acute Lower extremity cellulitis Acute Acute respiratory failure with hypoxemia Acute Afib Acute Aortic stenosis Acute CAD (coronary artery disease) Acute CHF (congestive heart failure) Acute Chronic Disease Mgmt/Transitional Care Acute DM (diabetes mellitus), type 2 Acute Diabetic leg ulcer Acute H/O heart artery stent Acute Mitral stenosis Acute Obesity (BMI 30-39.9) Acute
--- NOTE | 2017-02-25 15:59 | WOCRNPDOC ---
WOCRN Advanced Assessment Note - Skin Integrity Problem, Advanced Assess Left Lower Lateral Leg Venous Stasis Ulcer Dressing Type: Open to Air Exudate Amount: Scant Exudate Characteristic(s): Serosanguinous [place] Wound Tissue: Hemosiderin Staining, Venous Dermatitis, Shiny, Taught Wound Bed Constitution: Granulation Tissue (50%), Loose Slough (50%) Wound Edges: Epithelizing, Attached Site Measurement - Head-to-Toe Length X Width X Depth (cm): 0.9x0.6x0.1 Extremity Temperature: Warm Skin Integrity Problem Comment: Shallow venous stasis ulcer. Calf circumference 53.4 cm. Spandigrip G will be sent down for low compression. Right Lower Lateral Leg Venous Stasis Ulcer Dressing Type: Open to Air Dressing Description: Clean/Dry, Intact Exudate Amount: None [place] Wound Tissue: Hemosiderin Staining, Venous Dermatitis, Shiny, Taught Wound Bed Color: [place] Wound Bed Constitution: Smooth Tissue Wound Edges: Attached Site Measurement - Head-to-Toe Length X Width X Depth (cm): 1.8x3.1x0.1 Extremity Temperature: Warm Skin Integrity Problem Comment: Shallow dry venous stasis ulcer. Calf circumference 51 cm. Will send light compression down for patient (spandigrip G) . Wound care will round again next week. Left Upper Medial Thigh Blister Dressing Type: Open to Air Exudate Amount: None [place] Wound Tissue: Scarred, Calloused Wound Bed Color: [place] Wound Bed Constitution: Smooth Tissue Wound Edges: Epithelizing, Attached Site Measurement - Head-to-Toe Length X Width X Depth (cm): 1x1.5x0.1 Skin Integrity Problem Comment: Shallow uneven wound with areas of scar tissue and healing present. Likely from friction. Apply dimethicone cream BID. Wound care will sign off this wound. Left Breast Excoriation Dressing Type: Open to Air Site Measurement - Head-to-Toe Length X Width X Depth (cm): 0.2x5x0.1 Skin Integrity Problem Comment: Shallow intertrigenous dermatitis wound. Interdry sheets to be kept between skin. Wound care will sign off this wound. Left Pannus Excoriation Dressing Type: Open to Air Site Measurement - Head-to-Toe Length X Width X Depth (cm): 0.3x6x0.1 Skin Integrity Problem Comment: Shallow intertrigenous dermatitis wound with fungal involvement. Interdry sheets to be kept between skin. Wound care will sign off this wound. Please do not apply powders with interdry sheets.
--- NOTE | 2017-02-25 19:14 | HOSPPROG ---
Hospitalist Progress Note Assessment/Plan: Assessment: 81-year-old female presenting with acute cellulitis in the setting of chronic venous stasis, acute systolic CHF exacerbation. Plan: 1. Cellulitis. Erythema worse on RLE laterally w/ small ulceration, and ulcerated area on lateral LLE - leukocytosis improving today s/p IV Abx - d/w Dr. Arce, she recommends covering w/ Ancef for likely strep/possible MSSA, pseudomonas on wound cx like colonizer, as it would not have been covered by yesterday's Vanco, so it would have been unlikely to see improvement if it were the offending organism 2. Systolic congestive heart failure exacerbation. Acute on chronic, appreciate cards consult, patient remains averse to cunningham for accurate I/O - cont lasix 80mg IV bid, monitor Cr/K - monitor daily weights 3. Chronic kidney disease stage 3. Baseline creatinine is 1.5-2.0, currently at 1.7 w/ active diuresis, hold on renal consult, as the Cr is behaving well w/ diuresis and moving appropriately for offloading volume and improving CO 4. Permanent atrial fibrillation. Patient's most recent cardioversion was unsuccessful, and she is currently in atrial fibrillation on EKG, continue her low-dose diltiazem and systemic anticoagulation 5. Diabetes mellitus type 2. Continue home dosage of insulin 6. Coronary artery disease. Chronic, currently no chest pain, her troponin level is 0.09 in the setting of CHF, indicating high risk of morbidity and/or mortality, continue to monitor closely on telemetry 7. Venous stasis. Chronic, wound care consultation appreciated Diet. Cardiac diet Prophylaxis. High risk patient, renally dosed Eliquis Code. Do not resuscitate per patient, her daughter is her MPOA Disposition. Anticipated discharge uncertain this time, requiring ongoing IV Abx, IV diuretics Subjective: patient reports shoulder/leg discomfort, reports that she "just deals with it" at home and does not want additional pain mgmt Objective: Vital Signs Temp Pulse Resp BP Pulse Ox 36.8 C 103 H 20 134/82 H 94 02/25/17 15:09 02/25/17 15:09 02/25/17 15:09 02/25/17 15:09 02/25/17 15:09 Laboratory Results 02/25/17 04:23 02/25/17 04:23 0802/25/17 02/26/17 05:59 05:59 05:59 Intake Total 2970 1030 Balance 2970 1030 PT 17.1 SEC (12.0-15.0) H 02/24/17 09:30 INR 1.40 (0.83-1.16) H 02/24/17 09:30 - Physical Exam Constitutional: no apparent distress, chronically ill appearing, obese, uncomfortable Cardiovascular: systolic murmur (II/ at sternum and apex), irregularly irregular, tachycardia (intermittently), edema (2+ bilat LE) Respiratory: reduced air movement (R lateral base), No expiratory wheeze, No bronchial breath sounds, No respiratory distress Gastrointestinal: normoactive bowel sounds, soft, non-tender abdomen, no palpable masses Skin: other (blanchable erythema lateral RLE w/ mild tenderness, small ulceration; larger ulceration and dry flaking skin LLE w/ mild pustulence) Psychiatric: interacting appropriately, not anxious, not encephalopathic, thought process linear ICD10 Worksheet Patient Problems: Problems Problem Status Onset Acute respiratory failure with hypoxemia Acute CHF (congestive heart failure) Acute Afib Acute H/O heart artery stent Acute CAD (coronary artery disease) Acute Aortic stenosis Acute Mitral stenosis Acute DM (diabetes mellitus), type 2 Acute Obesity (BMI 30-39.9) Acute Chronic Disease Mgmt/Transitional Care Acute Diabetic leg ulcer Acute Lower extremity cellulitis Acute Edema, peripheral Acute
[2017-02-25] MEDS: ATORVASTATIN CALCIUM 20 MG TAB PO SCH (20:22)
[2017-02-25] MEDS: INSULIN GLARGINE 100 UNITS/ML SYRINGE SC SCH (21:06)
[2017-02-26 05:07] LABS: % IMMATURE GRANULYOCYTES 0.6 % (0.0-1.1); ABSOLUTE IMMATURE GRANULOCYTES 0.07 10^3/uL (0.00-0.10); ADD DIFF? NO; ADD MORPH? NO; ADD SCAN? NO; ATYPICAL LYMPHOCYTE FLAG 0 (0-99); FRAGMENT RBC FLAG 30 (0-99); HEMATOCRIT 31.6 % (38.0-47.0); HEMOGLOBIN 10.1 g/dL (12.6-16.3); LEFT SHIFT FLG 0 (0-99); LIPEMIA HEMOLYSIS FLAG 80 (0-99); MEAN CELL HEMOGLOBIN 26.5 pg (27.9-34.1); MEAN CELL VOLUME 82.9 fL (81.5-99.8); PLATELET CLUMPS FLAG 10 (0-99); PLATELET COUNT 242 10^3/uL (150-400); RED BLOOD CELL COUNT 3.81 10^6/uL (4.18-5.33)
[2017-02-26 05:23] LABS: ANION GAP 11 mEq/L (8-16); CALCIUM 8.4 mg/dL (8.5-10.4); CARBON DIOXIDE 30 mEq/l (22-31); CHLORIDE 91 mEq/L (97-110); CREATININE 1.6 mg/dL (0.6-1.0); GLOMERULAR FILTRATION RATE 31; GLUCOSE 73 mg/dL (70-100); SODIUM 132 mEq/L (134-144)
[2017-02-26 05:31] LABS: POTASSIUM 2.6 mEq/L (3.5-5.2)
[2017-02-26] MEDS ORDERED: POTASSIUM CL 20 MEQ TAB PO ONE (05:46)
[2017-02-26] MEDS: LEVOTHYROXINE 100 MCG TAB PO SCH (06:15)
[2017-02-26] MEDS ORDERED: METOLAZONE 5 MG TAB PO ONE (08:48)
[2017-02-26] MEDS ORDERED: METOLAZONE 2.5 MG TAB PO ONE (09:00)
[2017-02-26] MEDS: APIXABAN 2.5 MG TAB PO SCH ×2 (10:09→20:45)
[2017-02-26] MEDS: DULoxetine 60 MG CAP PO SCH (10:09)
[2017-02-26] MEDS: DILTIAZEM 30 MG TAB PO SCH ×2 (10:09→20:45)
[2017-02-26] MEDS: CHOLECALCIFEROL VIT D3 2,000 UNITS TAB/CAP PO SCH (10:09)
[2017-02-26] MEDS: FUROSEMIDE 80 MG in D5W 50 ML IV SCH ×2 (10:10→16:55)
[2017-02-26] MEDS: INSULIN LISPRO 100 UNIT/ML SC SCH ×3 (10:16→18:51)
[2017-02-26] MEDS: MULTIVITAMINS 1 EACH TAB PO SCH (10:25)
--- NOTE | 2017-02-26 11:17 | PDCARPN ---
Cardiology Progress Note Chief Complaint: Patient with pains to shoulders, hips, and legs today. Overall, she feels somewhat better, but continues to have dyspnea at rest. Assessment/Plan: Assessment: 02-26-17 Diuresis was started yesterday with Intravenous therapy. Difficult to use weights as an assessment of success. Attempts at placement of cunningham were unsuccessful (pain), and the patient with use of bedside commode at this point in time. Weights are trending down from yesterday's high of 117 kg. Renal function continues to improve as well. Ongoing work with ID to treat cellulitis to bilateral lower extremities. No complaints of chest pains or pressure. 02-25-17 Diuresis was started with intravenous therapy yesterday. No changes (or minimal improvement) to renal function. Weights are up almost 5 kg (which is difficult to explain) and question the measurements on two different scales ( one from the ER and one from the flood). Would continue IV diuresis today given these findings. No complaints of chest pains or pressure, no PND or orthopnea. Patient was sitting up on her chair today. ID with manipulation of therapy based on results that are being noted. BNR levels are >6000 (noted to be >7000 in the Fall of last year). 02-24-17 Patient is an 81 y/o female, well known to [facility], with history of valvular heart disease s/p TAVR (2014), CAD with non critical lesions, CMP (EF of 45% in the past with documentation of improvement post TAVR to 55%), CHF ( history), pHTN (60 mm Hg), pAF, now thought to more permanent, HTN, DM with neuropathy, HLP, and arthritis (affecting shoulders and hips), and renal insufficiency, who presented to [facility] after fall. Vast majority of the history was provided by daughter, present with the patient in her room today. As a result of the pain from the fall, the patient was given an extra dose of pain medication at home, which may contribute to some degree of the somnolence noted. No voiced complaints of chest pains or pressure. No PND or orthopnea. Ongoing issues with bilateral lower extremity cellulitis (and infectious disease has been consulted). Weight gain of over 10 pounds has been noted, with bilateral lower extremity edema to above the knee. Bedside echocardiography with EF of 45-55% (somewhat limited windows given patient's body position). Unchanged RVSP from prior echo. More RV dilation was noted and as a result, more TR (mild in past, more moderate at present). Outpatient office note from 01-19-17 was reviewed with the daughter today. At that time, the patient was doing well. Plan: (1) Continue IV diuresis - would add dose of metolazone today (2.5 mg) and follow both weights and output (2) ID to continue to manage lower extremity cellulitis therapy (3) Statins to continue with HLP (4) Eliquis for CVA prophylaxis given atrial fibrillation history (5) Cardizem for HTN some degree of rate control assistance to continue (6) Aggressive DM control to continue (7) Ambulation as tolerated today (up in chair, up in bed, up at bedside) Subjective: No cardiovascular complaints, but generalized pains noted. Reviewed/Discussed With: hospitalist, multidisciplinary team Objective: Vital Signs (8 Hrs) Temp Pulse Resp BP Pulse Ox 02/26/17 07:37 36.9 C 90 24 H 134/82 H 97 02/26/17 03:18 36.8 C 97 18 132/81 H 96 Intake/Output (24 Hrs) 02/25/17 02/26/17 02/27/17 05:59 05:59 05:59 Intake Total 2970 1430 120 Output Total 200 Balance 2970 1230 120 Intake: Oral (ml) 2720 1280 120 IV Infused (ml) 250 150 Furosemide 80 mg In D5w 100 50 ml @ 100 mls/hr IV BIDDIUR [facility] Rx#: [id number] ceFAZolin 1 GM/DEXTROSE 50 50 ml @ 200 mls/hr IV Q8HRS [facility] Rx#:[id number] Output: Urine (ml) 200 Bedpan 200 Other: Weight 113 kg 115.7 kg Number of Voids Bedpan 1 Incontinence 4 4 1 Number of Stools Toilet 1 Bladder Scan Volume (ml) Incontinence 355 Toilet 80 Result Diagrams: 02/26/17 04:14 02/26/17 04:14 Telemetry: atrial fibrillation - Physical Exam Constitutional: obese, general pain Eyes: PERRL, EOMI Ears, Nose, Mouth, Throat: moist mucous membranes Cardiovascular: systolic murmur, irregularly irregular, No jugular vein distention Peripheral Pulses: 2+: dorsalis-pedis (R), dorsalis-pedis (L) Respiratory: clear to auscultate bilat, reduced air movement Gastrointestinal: normoactive bowel sounds Skin: other (edema to bilateral lower extremities) Musculoskeletal: joint tenderness Neurologic: AAOx3, CN II-XII grossly intact Psychiatric: cooperative, interactive, following commands ICD10 Worksheet Patient Problems: Problems Problem Status Onset Edema, peripheral Acute Lower extremity cellulitis Acute Acute respiratory failure with hypoxemia Acute Afib Acute Aortic stenosis Acute CAD (coronary artery disease) Acute CHF (congestive heart failure) Acute Chronic Disease Mgmt/Transitional Care Acute DM (diabetes mellitus), type 2 Acute Diabetic leg ulcer Acute H/O heart artery stent Acute Mitral stenosis Acute Obesity (BMI 30-39.9) Acute
[2017-02-26 11:30] LABS: ANION GAP 14 mEq/L (8-16); CALCIUM 8.3 mg/dL (8.5-10.4); CARBON DIOXIDE 27 mEq/l (22-31); CHLORIDE 92 mEq/L (97-110); CREATININE 1.4 mg/dL (0.6-1.0); GLOMERULAR FILTRATION RATE 36; GLUCOSE 186 mg/dL (70-100); POTASSIUM 3.1 mEq/L (3.5-5.2); SODIUM 133 mEq/L (134-144)
--- NOTE | 2017-02-26 12:16 | HOSPPROG ---
Hospitalist Progress Note Assessment/Plan: Assessment: 81-year-old female presenting with acute cellulitis in the setting of chronic venous stasis, acute systolic CHF exacerbation. Plan: 1. Cellulitis. Erythema persists on RLE laterally w/ small ulceration and leukocytosis marginally worsening - will d/w Dr. Arce to determine whether we broaden back to [facility], or monitor on Ancef additional 24hrs - monitor CBC 2. Systolic congestive heart failure exacerbation. Acute on chronic, d/w Dr. Carranza, we agreed that patient remains hypervolemic and weights are not appreciably improving, so dose w/ metolazone 2.5mg today w/ ongoing IV lasix 80mg bid - K 60mEq this AM, repeat level now - monitor daily weights 3. Chronic kidney disease stage 3. Baseline creatinine is 1.5-2.0, currently at 1.6 w/ active diuresis, hold on renal consult, as the Cr is behaving well w/ diuresis and moving appropriately for offloading volume and improving CO 4. Permanent atrial fibrillation. Patient's most recent cardioversion was unsuccessful, and she is currently in atrial fibrillation on EKG, continue her low-dose diltiazem and systemic anticoagulation 5. Diabetes mellitus type 2. Continue home dosage of insulin 6. Coronary artery disease. Chronic, currently no chest pain, her troponin level is 0.09 in the setting of CHF, indicating high risk of morbidity and/or mortality, continue to monitor closely on telemetry 7. Venous stasis. Chronic, wound care consultation appreciated Diet. Cardiac diet Prophylaxis. High risk patient, renally dosed Eliquis Code. Do not resuscitate per patient, her daughter is her MPOA Disposition. Anticipated discharge uncertain this time, requiring ongoing IV Abx, IV diuretics High level of medical complexity, with high risk or worsening morbidity/ mortality 2/2 issues outlined above Subjective: ongoing pain in legs, urine incontinence Objective: Vital Signs Temp Pulse Resp BP Pulse Ox 36.9 C 95 16 118/76 96 02/26/17 11:36 02/26/17 11:36 02/26/17 11:36 02/26/17 11:36 02/26/17 11:36 Laboratory Results 02/26/17 04:14 02/26/17 10:56 02/25/17 02/26/17 02/27/17 05:59 05:59 05:59 Intake Total 2970 1430 240 Output Total 200 Balance 2970 1230 240 PT 17.1 SEC (12.0-15.0) H 02/24/17 09:30 INR 1.40 (0.83-1.16) H 02/24/17 09:30 - Physical Exam Constitutional: no apparent distress, chronically ill appearing, obese, uncomfortable Cardiovascular: systolic murmur (II/ at sternum and apex), irregularly irregular, tachycardia (intermittently 90s), edema (2+ bilat LE) Respiratory: reduced air movement (bilat bases), No expiratory wheeze, No inspiratory crackles, No bronchial breath sounds Gastrointestinal: normoactive bowel sounds, soft, non-tender abdomen, no palpable masses, other (obese, mild distended) Skin: other (erythematous RLE laterally w/ small ulceration, stable ulceration lateral LLE, blanching bilat, dried skin LLE) Musculoskeletal: other (limited ROM bilat ankles 2/2 edema) Neurologic: AAOx3, sensation intact bilaterally, weakness (3/5 LLE, 4/5 RLE), No facial droop Psychiatric: not anxious, not encephalopathic, thought process linear, flat affect, No agitated ICD10 Worksheet Patient Problems: Problems Problem Status Onset Acute respiratory failure with hypoxemia Acute CHF (congestive heart failure) Acute Afib Acute H/O heart artery stent Acute CAD (coronary artery disease) Acute Aortic stenosis Acute Mitral stenosis Acute DM (diabetes mellitus), type 2 Acute Obesity (BMI 30-39.9) Acute Chronic Disease Mgmt/Transitional Care Acute Diabetic leg ulcer Acute Lower extremity cellulitis Acute Edema, peripheral Acute
[2017-02-26] MEDS ORDERED: POTASSIUM CL 10 MEQ TAB PO ONE ×3 (15:42→15:43)
[2017-02-26] MEDS: POTASSIUM CL 10 MEQ TAB PO SCH (16:55)
--- NOTE | 2017-02-26 19:00 | PCMIDPN ---
Assessment/Plan: Assessment: Right lower extremity cellulitis. Patient is improving on cefazolin. Elevation also seems to be improving things. No change in antibiotics at this point. Will continue observe over the next 1-2 days for consistency of improvement. Agree with the assessment that the Pseudomonas isolate is unlikely to be the pathogen given clinical improvement on current regimen. Plan: 1. Continue cefazolin. 2. Follow appearance of the right lower extremity. 02/26/17 18:58 Subjective: Patient is resting in her hospital bed. She notes that both legs are reduced in size. No fevers or chills. Tolerating cefazolin without issue. Objective: Cefazolin # 2 Vital Signs Temp Pulse Resp BP Pulse Ox 37.2 C 98 18 140/82 H 99 02/26/17 15:26 02/26/17 15:26 02/26/17 15:26 02/26/17 15:26 02/26/17 15:26 Laboratory Results 02/26/17 04:14 02/26/17 10:56 02/25/17 02/26/17 02/27/17 05:59 05:59 05:59 Intake Total 2970 1430 655 Output Total 200 Balance 2970 1230 655 - Physical Exam General Appearance: WD/WN, alert, no apparent distress, obese, non-toxic Respiratory: lungs clear, normal breath sounds, No respiratory distress Cardiac/Chest: regular rate, rhythm, No tachycardia Extremities: non-tender, pedal edema, erythema (Right stocking distribution), No normal inspection, No swelling Skin: normal color, warm/dry, No rash Neuro/Psych: alert, normal mood/affect, oriented x 3 ICD10 Worksheet Patient Problems: Problems Problem Status Onset Edema, peripheral Acute Lower extremity cellulitis Acute Acute respiratory failure with hypoxemia Acute Afib Acute Aortic stenosis Acute CAD (coronary artery disease) Acute CHF (congestive heart failure) Acute Chronic Disease Mgmt/Transitional Care Acute DM (diabetes mellitus), type 2 Acute Diabetic leg ulcer Acute H/O heart artery stent Acute Mitral stenosis Acute Obesity (BMI 30-39.9) Acute
[2017-02-26] MEDS: ATORVASTATIN CALCIUM 20 MG TAB PO SCH (20:45)
[2017-02-26] MEDS: INSULIN GLARGINE 100 UNITS/ML SYRINGE SC SCH (20:45)
[2017-02-27 05:37] LABS: % IMMATURE GRANULYOCYTES 0.5 % (0.0-1.1); ABSOLUTE IMMATURE GRANULOCYTES 0.06 10^3/uL (0.00-0.10); ADD DIFF? NO; ADD MORPH? NO; ADD SCAN? NO; ATYPICAL LYMPHOCYTE FLAG 10 (0-99); FRAGMENT RBC FLAG 0 (0-99); HEMATOCRIT 32.2 % (38.0-47.0); HEMOGLOBIN 10.2 g/dL (12.6-16.3); LEFT SHIFT FLG 0 (0-99); LIPEMIA HEMOLYSIS FLAG 80 (0-99); MEAN CELL HEMOGLOBIN 26.4 pg (27.9-34.1); MEAN CELL HEMOGLOBIN CONCENTR. 31.7 g/dL (32.4-36.7); MEAN CELL VOLUME 83.2 fL (81.5-99.8); MEAN PLATELET VOLUME 10.2 fL (8.7-11.7); PLATELET CLUMPS FLAG 0 (0-99); PLATELET COUNT 243 10^3/uL (150-400); RED BLOOD CELL COUNT 3.87 10^6/uL (4.18-5.33)
[2017-02-27 05:58] LABS: ANION GAP 12 mEq/L (8-16); CALCIUM 8.4 mg/dL (8.5-10.4); CARBON DIOXIDE 30 mEq/l (22-31); CHLORIDE 92 mEq/L (97-110); CREATININE 1.5 mg/dL (0.6-1.0); GLOMERULAR FILTRATION RATE 33; GLUCOSE 112 mg/dL (70-100); MAGNESIUM 2.1 mg/dL (1.6-2.3); SODIUM 134 mEq/L (134-144)
[2017-02-27] MEDS: LEVOTHYROXINE 100 MCG TAB PO SCH (06:04)
[2017-02-27] MEDS: INSULIN LISPRO 100 UNIT/ML SC SCH ×3 (08:20→17:55)
[2017-02-27] MEDS ORDERED: POTASSIUM CL 10 MEQ TAB PO ONE ×2 (08:32)
[2017-02-27] MEDS: APIXABAN 2.5 MG TAB PO SCH ×2 (09:50→21:19)
[2017-02-27] MEDS: DILTIAZEM 30 MG TAB PO SCH ×2 (09:50→21:19)
[2017-02-27] MEDS: FUROSEMIDE 80 MG in D5W 50 ML IV SCH (09:50)
[2017-02-27] MEDS: MULTIVITAMINS 1 EACH TAB PO SCH (09:50)
[2017-02-27] MEDS: DULoxetine 60 MG CAP PO SCH (09:50)
[2017-02-27] MEDS: CHOLECALCIFEROL VIT D3 2,000 UNITS TAB/CAP PO SCH (09:50)
--- NOTE | 2017-02-27 10:00 | PDCARPN ---
Cardiology Progress Note Chief Complaint: No complaints today. Patient up in chair feeling reasonably well. Assessment/Plan: Assessment: Patient reports feeling somewhat better today. No cardiovascular complaints of chest pains or pressure. Weights are up in comparison to yesterday. Renal function is similar (but possibly slightly worse today). ID continues to round on patient and feel that the bilateral lower extremity issues are improving. I am confused by the weights that have been noted. That data is not helping up determine what direction we are truly going at this point in time. Metolazone was used (lower dose) yesterday, but effect from this therapy is not apparent. 02-26-17 Diuresis was started yesterday with Intravenous therapy. Difficult to use weights as an assessment of success. Attempts at placement of cunningham were unsuccessful (pain), and the patient with use of bedside commode at this point in time. Weights are trending down from yesterday's high of 117 kg. Renal function continues to improve as well. Ongoing work with ID to treat cellulitis to bilateral lower extremities. No complaints of chest pains or pressure. 02-25-17 Diuresis was started with intravenous therapy yesterday. No changes (or minimal improvement) to renal function. Weights are up almost 5 kg (which is difficult to explain) and question the measurements on two different scales ( one from the ER and one from the flood). Would continue IV diuresis today given these findings. No complaints of chest pains or pressure, no PND or orthopnea. Patient was sitting up on her chair today. ID with manipulation of therapy based on results that are being noted. BNR levels are >6000 (noted to be >7000 in the Fall of last year). 02-24-17 Patient is an 81 y/o female, well known to [facility], with history of valvular heart disease s/p TAVR (2014), CAD with non critical lesions, CMP (EF of 45% in the past with documentation of improvement post TAVR to 55%), CHF ( history), pHTN (60 mm Hg), pAF, now thought to more permanent, HTN, DM with neuropathy, HLP, and arthritis (affecting shoulders and hips), and renal insufficiency, who presented to [facility] after fall. Vast majority of the history was provided by daughter, present with the patient in her room today. As a result of the pain from the fall, the patient was given an extra dose of pain medication at home, which may contribute to some degree of the somnolence noted. No voiced complaints of chest pains or pressure. No PND or orthopnea. Ongoing issues with bilateral lower extremity cellulitis (and infectious disease has been consulted). Weight gain of over 10 pounds has been noted, with bilateral lower extremity edema to above the knee. Bedside echocardiography with EF of 45-55% (somewhat limited windows given patient's body position). Unchanged RVSP from prior echo. More RV dilation was noted and as a result, more TR (mild in past, more moderate at present). Outpatient office note from 01-19-17 was reviewed with the daughter today. At that time, the patient was doing well. Plan: (1) Aggressive ambulation (OT/PT) and elevation of lower extremities when seated or lying flat (2) Would re dose the metolazone again today (3) Continue IV diuresis as at present (4) Eliquis should continue for CVA prophylaxis given the ongoing presence of atrial fibrillation (5) Cardizem to continue for HTN history (6) Statins to continue as at present for HLP (7) Aggressive DM therapies should continue Subjective: No complaints voiced. Still having some pains to the shoulders. Minor right neck pains today Objective: Vital Signs (8 Hrs) Temp Pulse Resp BP Pulse Ox 02/27/17 07:24 93 20 113/83 H 95 02/27/17 04:00 36.8 C 99 18 117/78 95 Intake/Output (24 Hrs) 02/26/17 02/27/17 02/28/17 05:59 05:59 05:59 Intake Total 1430 905 75 Output Total 200 Balance 1230 905 75 Intake: Oral (ml) 1280 730 IV Intake (ml) 25 25 IV Infused (ml) 150 150 50 Furosemide 80 mg In D5w 100 100 50 ml @ 100 mls/hr IV BIDDIUR [facility] Rx#: [id number] ceFAZolin 1 GM/DEXTROSE 50 50 50 50 ml @ 200 mls/hr IV Q8HRS ANA[facility] Rx#:[id number] Output: Urine (ml) 200 Bedpan 200 Other: Weight 115.7 kg Intake Quantity Yes Sufficient Number of Voids Bedpan 1 Incontinence 4 3 Result Diagrams: 02/27/17 04:15 02/27/17 04:15 Telemetry: atrial fibrillation - Physical Exam Constitutional: WDWN, no apparent distress, obese Eyes: PERRL, EOMI Ears, Nose, Mouth, Throat: moist mucous membranes Cardiovascular: systolic murmur, irregularly irregular Peripheral Pulses: 1+: dorsalis-pedis (R), dorsalis-pedis (L) Respiratory: clear to auscultate bilat, reduced air movement Gastrointestinal: normoactive bowel sounds Skin: rash, other (edema remains) Musculoskeletal: pain with ROM Neurologic: AAOx3, CN II-XII grossly intact Psychiatric: cooperative, interactive, following commands ICD10 Worksheet Patient Problems: Problems Problem Status Onset Edema, peripheral Acute Lower extremity cellulitis Acute Acute respiratory failure with hypoxemia Acute Afib Acute Aortic stenosis Acute CAD (coronary artery disease) Acute CHF (congestive heart failure) Acute Chronic Disease Mgmt/Transitional Care Acute DM (diabetes mellitus), type 2 Acute Diabetic leg ulcer Acute H/O heart artery stent Acute Mitral stenosis Acute Obesity (BMI 30-39.9) Acute
[2017-02-27] MEDS ORDERED: METOLAZONE 5 MG TAB PO ONE (10:01)
--- NOTE | 2017-02-27 10:21 | PCMIDPN ---
Assessment/Plan: # RLE cellulitis: difficult exam with CHERELLE due to chronic venous insufficiency as well as other reasons for CHERELLE including RHF, renal insuf but does appear less red today, unclear if has to do with elevation vs antibiotics. Suspect streptococcus as etiology of infection; suspect PsA and enterococcus are colonizers. --continue with cefazolin and elevation --currently planning duration of antibiotics around 7 days # Leukocytosis: persistent elevation, AF, no localizing symptoms. --continue to monitor, no further w/u for now # UCx positive Ecoli only R to amp, no urinary symptoms. Cefazolin would cover # ARF - Cr stable, no dosing changes for antibiotics. medication, Abx #3 cefazolin 1gm IV q8h #2 microbiology 02/24/2017 blood cultures ( 2) pending 02/24/2017 wound cultures 3+ PsA, enterococcus 02/24/2017 Ucx E coli 10K Subjective: no specific c/o other than nausea - which is apparently her baseline Objective: Vital Signs Temp Pulse Resp BP Pulse Ox 36.8 C 93 20 113/83 H 95 02/27/17 04:00 02/27/17 07:24 02/27/17 07:24 02/27/17 07:24 02/27/17 07:24 Microbiology 02/25/17 20:20 Urine Culture - Final Urine,Clean Catch Escherichia Coli Laboratory Results 02/27/17 04:15 02/27/17 04:15 02/26/17 02/27/17 02/28/17 05:59 05:59 05:59 Intake Total 1430 905 75 Output Total 200 Balance 1230 905 75 - Physical Exam General Appearance: alert EENT: pale conjunctiva, No scleral icterus Respiratory: other (shallow inspiration, no crackles, decrease BS bases), No accessory muscle use Neck: supple Cardiac/Chest: systolic murmur, irregularly irregular Extremities: pedal edema, inflammation (pinkness/erythema stocking distribution RLE, less intense than my exam 2 days ago) Abdomen: non-tender, soft Skin: pallor, No rash Neuro/Psych: alert ICD10 Worksheet Patient Problems: Problems Problem Status Onset Edema, peripheral Acute Lower extremity cellulitis Acute Acute respiratory failure with hypoxemia Acute Afib Acute Aortic stenosis Acute CAD (coronary artery disease) Acute CHF (congestive heart failure) Acute Chronic Disease Mgmt/Transitional Care Acute DM (diabetes mellitus), type 2 Acute Diabetic leg ulcer Acute H/O heart artery stent Acute Mitral stenosis Acute Obesity (BMI 30-39.9) Acute
[2017-02-27] MEDS: HYDROCODONE/APAP 5/325 TAB PO PRN (11:07)
--- NOTE | 2017-02-27 13:50 | HOSPPROG ---
Hospitalist Progress Note Assessment/Plan: Assessment: 81-year-old female presenting with acute cellulitis in the setting of chronic venous stasis, acute systolic CHF exacerbation. Plan: 1. Cellulitis. Erythema persists on RLE laterally w/ small ulceration and leukocytosis persists, does appear to be clinically improving - d/w Dr. Arce, we agree that if area is improving tomorrow, will recommend outpatient PO Abx for 7 days - monitor CBC 2. Systolic congestive heart failure exacerbation. Acute on chronic, EF 45-50% w/ RV overload on Echo, LE edema, weight was elevated from prior DC - daily weights seem unreliable, patient refused cunningham after painful attempts - reportedly having polyuria and incontinence, legs do appear somewhat less tense than on admit - received extra dose of metolazone yesterday (receives twice weekly at baseline ) and has been on lasix 80mg IV 2xd - plan to transition to PO 80mg bid this afternoon and monitor for 24hrs to ensure she continues to diurese, prior to DC - extra K given today (total 40mEq), recheck K at 2 p.m. - will need close outpatient f/u at [facility] 3. Chronic kidney disease stage 3. Baseline creatinine is 1.5-2.0, currently at 1.5 w/ active diuresis, hold on renal consult, as the Cr is behaving well w/ diuresis and moving appropriately for offloading volume and improving CO 4. Permanent atrial fibrillation. Patient's most recent cardioversion was unsuccessful, and she is currently in atrial fibrillation on EKG, continue her low-dose diltiazem and systemic anticoagulation 5. Diabetes mellitus type 2. Continue home dosage of insulin 6. Coronary artery disease. Chronic, currently no chest pain, her troponin level is 0.09 in the setting of CHF, indicating high risk of morbidity and/or mortality, continue to monitor closely on telemetry 7. Venous stasis. Chronic, wound care consultation appreciated - ongoing pressure wraps, continue at discharge and arrange outpt wound clinic f /u 8. Neuropathy w/ continuous opiate dependency. Chronic, patient manages at home w/ norco PRN 9. Constipation. No BM during admission, give lactulose and miralax today, if no effect, give either bisacodyl supp vs. PO Diet. Cardiac diet Prophylaxis. High risk patient, renally dosed Eliquis Code. Do not resuscitate per patient, her daughter is her MPOA Disposition. Anticipated discharge 02/28 vs. 03/01, pending possible improvement of cellulitis tomorrow AM. High level of medical complexity, with high risk or worsening morbidity/ mortality 2/2 issues outlined above Subjective: reports ongoing discomfort in shoulders, legs, no BM Objective: Vital Signs Temp Pulse Resp BP Pulse Ox 36.9 C 102 H 16 156/88 H 95 02/27/17 10:43 02/27/17 10:43 02/27/17 10:43 02/27/17 10:43 02/27/17 10:43 Microbiology 02/25/17 20:20 Urine Culture - Final Urine,Clean Catch Escherichia Coli Laboratory Results 02/27/17 04:15 02/27/17 04:15 02/26/17 02/27/17 02/28/17 05:59 05:59 05:59 Intake Total 1430 905 175 Output Total 200 Balance 1230 905 175 PT 17.1 SEC (12.0-15.0) H 02/24/17 09:30 INR 1.40 (0.83-1.16) H 02/24/17 09:30 - Pending Discharge Pending Discharge Within 48 Hours: Yes Pending Discharge Date: 03/01/17 Pending Discharge Time: 11:00 - Physical Exam Constitutional: no apparent distress, not in pain, chronically ill appearing, obese, uncomfortable Cardiovascular: systolic murmur (II/ at sternum), irregularly irregular, edema (2+ bilat LE), No tachycardia Respiratory: no respiratory distress, no rales or rhonchi, clear to auscultation , other (poor insp effort) Gastrointestinal: normoactive bowel sounds, soft, non-tender abdomen, no palpable masses, distension (moderate) Skin: other (blanching erythema bilat lateral aspects of shins, small ulceration RLE laterally, larger ulceration w/ dried skin LLE laterally) Neurologic: weakness (3/5 RLE motor, 4/5 LLE motor), other (AAOx2 (person and time, not place)), No sensation intact bilaterally (reduced distally bilaterally ) Psychiatric: not anxious, thought process linear, other (lethargic but arousable to voice), No agitated ICD10 Worksheet Patient Problems: Problems Problem Status Onset Acute respiratory failure with hypoxemia Acute CHF (congestive heart failure) Acute Afib Acute H/O heart artery stent Acute CAD (coronary artery disease) Acute Aortic stenosis Acute Mitral stenosis Acute DM (diabetes mellitus), type 2 Acute Obesity (BMI 30-39.9) Acute Chronic Disease Mgmt/Transitional Care Acute Diabetic leg ulcer Acute Lower extremity cellulitis Acute Edema, peripheral Acute
[2017-02-27 13:59] LABS: ANION GAP 12 mEq/L (8-16); CALCIUM 8.3 mg/dL (8.5-10.4); CARBON DIOXIDE 29 mEq/l (22-31); CHLORIDE 92 mEq/L (97-110); CREATININE 1.4 mg/dL (0.6-1.0); GLOMERULAR FILTRATION RATE 36; GLUCOSE 220 mg/dL (70-100); POTASSIUM 2.9 mEq/L (3.5-5.2); SODIUM 133 mEq/L (134-144)
[2017-02-27] MEDS: FUROSEMIDE 80 MG TAB PO SCH (14:04)
[2017-02-27] MEDS: POTASSIUM CL 10 MEQ TAB PO SCH (14:09)
[2017-02-27] MEDS ORDERED: LACTULOSE 20 GM/30 ML UDCUP PO PRN (17:08)
[2017-02-27] MEDS ORDERED: MAGNESIUM HYDROXIDE 30 ML UDCUP PO PRN (17:08)
[2017-02-27] MEDS ORDERED: BISACODYL 10 MG SUPP PR PRN (17:08)
[2017-02-27] MEDS ORDERED: POLYETHYLENE GLYCOL 3350 17 GM PKT PO PRN (17:08)
[2017-02-27] MEDS: ACETAMINOPHEN 325 MG TAB PO PRN (18:22)
[2017-02-27] MEDS: ATORVASTATIN CALCIUM 20 MG TAB PO SCH (21:19)
[2017-02-27] MEDS: SENNOSIDES/DOCUSATE SODIUM TAB PO SCH (21:19)
[2017-02-27] MEDS: INSULIN GLARGINE 100 UNITS/ML SYRINGE SC SCH (21:39)
[2017-02-28 04:48] LABS: % IMMATURE GRANULYOCYTES 0.6 % (0.0-1.1); ABSOLUTE IMMATURE GRANULOCYTES 0.08 10^3/uL (0.00-0.10); ADD DIFF? NO; ADD MORPH? NO; ADD SCAN? NO; ATYPICAL LYMPHOCYTE FLAG 10 (0-99); FRAGMENT RBC FLAG 0 (0-99); HEMATOCRIT 32.3 % (38.0-47.0); HEMOGLOBIN 10.1 g/dL (12.6-16.3); LEFT SHIFT FLG 0 (0-99); LIPEMIA HEMOLYSIS FLAG 80 (0-99); MEAN CELL HEMOGLOBIN 26.2 pg (27.9-34.1); MEAN CELL HEMOGLOBIN CONCENTR. 31.3 g/dL (32.4-36.7); MEAN CELL VOLUME 83.9 fL (81.5-99.8); MEAN PLATELET VOLUME 10.1 fL (8.7-11.7); PLATELET CLUMPS FLAG 10 (0-99); PLATELET COUNT 244 10^3/uL (150-400); RED BLOOD CELL COUNT 3.85 10^6/uL (4.18-5.33)
[2017-02-28 04:58] LABS: ANION GAP 11 mEq/L (8-16); CALCIUM 8.6 mg/dL (8.5-10.4); CARBON DIOXIDE 30 mEq/l (22-31); CHLORIDE 93 mEq/L (97-110); CREATININE 1.5 mg/dL (0.6-1.0); GLOMERULAR FILTRATION RATE 33; GLUCOSE 115 mg/dL (70-100); MAGNESIUM 2.2 mg/dL (1.6-2.3); SODIUM 134 mEq/L (134-144)
[2017-02-28] MEDS: LEVOTHYROXINE 100 MCG TAB PO SCH (05:33)
[2017-02-28] MEDS ORDERED: CYANO/VITAMIN B12 1000 MCG/ML VIAL IM SCH (09:00)
--- NOTE | 2017-02-28 09:16 | PDCARPN ---
Cardiology Progress Note Chief Complaint: legs hurt Assessment/Plan: Assessment: Patient is an 81 y/o F with a history of valvular heart disease s/p TAVR in 2015 , CAD with non critical lesions, CMP (EF of 45% in the past with documentation of improvement post TAVR to 55%), CHF (history), pHTN (60 mm Hg), pAF, now thought to more permanent, HTN, DM with neuropathy, HLP, and arthritis ( affecting shoulders and hips), and renal insufficiency, who presented to [facility] after fall. She was found to have severe lower extremity edema and cellulitis as well as a 10 pound weight gain. Bedside echocardiography with EF of 45-55% ( somewhat limited windows given patient's body position). Unchanged RVSP from prior echo. More RV dilation was noted and as a result, more TR (mild in past, more moderate at present). Plan: 1. CHF acute on chronic- Currently on IV Lasix and PRN Metolazone. Her weight and I/O are inaccurate secondary to poor mobility and incontinence. Unable to place cunningham secondary to pain. Clinically she does seem to be improving. Edema is below the knee. Continue Lasix IV but will hold Metolazone secondary to small increase in her BUN/CR. Likely resume Metolazone tomorrow. 2. Cellulitis- per ID 3. Paroxysmal vs permanent atrial fibrillation- rate controlled with Dilt and on Eliquis (renal dosing) for CVA prophylaxis. 4. h/o TAVR- stable 5. CMP-Not on ZAID-I secondary to renal insufficiency. Consider BB once more stable. 6. CRI- continue to monitor 7. PHTN 8. CAD on statin 02/28/17 09:17 Subjective: She feels a little better today. She is peeing a lot but is not sure if her swelling is improving. She is complaining of leg and arm pain with even minimal movement. Reviewed/Discussed With: hospitalist, multidisciplinary team Objective: Vital Signs (8 Hrs) Temp Pulse Resp BP Pulse Ox 02/28/17 08:21 37.0 C 89 20 135/82 H 95 02/28/17 04:00 36.4 C 91 20 134/77 H 96 Intake/Output (24 Hrs) 02/27/17 02/28/17 03/01/17 05:59 05:59 05:59 Intake Total 905 575 Balance 905 575 Intake: Oral (ml) 730 350 IV Intake (ml) 25 75 IV Infused (ml) 150 150 Furosemide 80 mg In D5w 100 50 ml @ 100 mls/hr IV BIDDIUR [facility] Rx#: [id number] ceFAZolin 1 GM/DEXTROSE 50 150 50 ml @ 200 mls/hr IV Q8HRS [facility] Rx#:[id number] Other: Weight 115 kg Intake Quantity Yes Yes Sufficient Number of Voids Bedside Commode 1 Incontinence 3 1 Number of Stools Bedside Commode 1 Incontinence 4 Result Diagrams: 02/28/17 04:00 02/28/17 04:00 Telemetry: a.fib rate controlled. - Physical Exam Constitutional: obese, general pain Cardiovascular: systolic murmur, irregularly irregular Gastrointestinal: ascites Skin: other (Bilateral lower extremity edema to the knee with cellulitis) ICD10 Worksheet Patient Problems: Problems Problem Status Onset Edema, peripheral Acute Lower extremity cellulitis Acute Acute respiratory failure with hypoxemia Acute Afib Acute Aortic stenosis Acute CAD (coronary artery disease) Acute CHF (congestive heart failure) Acute Chronic Disease Mgmt/Transitional Care Acute DM (diabetes mellitus), type 2 Acute Diabetic leg ulcer Acute H/O heart artery stent Acute Mitral stenosis Acute Obesity (BMI 30-39.9) Acute
[2017-02-28] MEDS: SENNOSIDES/DOCUSATE SODIUM TAB PO SCH ×2 (09:19→21:18)
[2017-02-28] MEDS: DULoxetine 60 MG CAP PO SCH (09:19)
[2017-02-28] MEDS: MULTIVITAMINS 1 EACH TAB PO SCH (09:19)
[2017-02-28] MEDS: CHOLECALCIFEROL VIT D3 2,000 UNITS TAB/CAP PO SCH (09:20)
[2017-02-28] MEDS: FUROSEMIDE 80 MG TAB PO SCH ×2 (09:20→14:28)
[2017-02-28] MEDS: APIXABAN 2.5 MG TAB PO SCH ×2 (09:20→21:18)
[2017-02-28] MEDS: DILTIAZEM 30 MG TAB PO SCH ×2 (09:20→21:18)
[2017-02-28] MEDS: INSULIN LISPRO 100 UNIT/ML SC SCH ×3 (09:21→18:09)
--- NOTE | 2017-02-28 09:36 | PCMIDPN ---
Assessment/Plan: # RLE cellulitis: residual LE changes seem most c/w venous insufficiency without residual cellulitis --1 more day cefazolin # Leukocytosis: persistent elevation, AF, liquid stool today after multiple laxatives. No abd pain. otherwise no localizing symptoms --hold off on cdiff testing for now # E coli in urine: no urinary symptoms. Cefazolin would cover # ARF - Cr sl up as expected with diuresis medication, Abx #4/5 cefazolin 1gm IV q8h #3 microbiology 02/24/2017 blood cultures ( 2) NGTD 02/24/2017 wound cultures 3+ PsA, enterococcus 02/24/2017 Ucx E coli 10K Subjective: I just want to sleep Objective: Vital Signs Temp Pulse Resp BP Pulse Ox 37.0 C 89 20 135/82 H 95 02/28/17 08:21 02/28/17 09:20 02/28/17 08:21 02/28/17 09:20 02/28/17 08:21 Microbiology 02/25/17 20:20 Urine Culture - Final Urine,Clean Catch Escherichia Coli Laboratory Results 02/28/17 04:00 02/28/17 04:00 02/27/17 02/28/17 03/01/17 05:59 05:59 05:59 Intake Total 905 575 Balance 905 575 - Physical Exam General Appearance: alert, no apparent distress EENT: poor dentition, No thrush Respiratory: other (decreased air movement in bases likely due to poor inspiratory effort), No accessory muscle use Neck: supple Cardiac/Chest: irregularly irregular Extremities: pedal edema (2-3+), inflammation (stocking distribution, more prominent R as compared to L) Abdomen: non-tender, soft Skin: No rash Neuro/Psych: alert ICD10 Worksheet Patient Problems: Problems Problem Status Onset Edema, peripheral Acute Lower extremity cellulitis Acute Acute respiratory failure with hypoxemia Acute Afib Acute Aortic stenosis Acute CAD (coronary artery disease) Acute CHF (congestive heart failure) Acute Chronic Disease Mgmt/Transitional Care Acute DM (diabetes mellitus), type 2 Acute Diabetic leg ulcer Acute H/O heart artery stent Acute Mitral stenosis Acute Obesity (BMI 30-39.9) Acute
[2017-02-28] MEDS: HYDROCODONE/APAP 5/325 TAB PO PRN (11:32)
[2017-02-28] MEDS: POTASSIUM CL 10 MEQ TAB PO SCH (14:28)
--- NOTE | 2017-02-28 16:52 | HOSPPROG ---
Hospitalist Progress Note Assessment/Plan: DIAGNOSES: # Acute cellulitis of leg with wound infection, stasis dermatitis and stasis ulcer # Acute on chronic systolic congestive heart failure responding to diuresis # Acute encephalopathy multifactorial # Severe acute on chronic deconditioning # Permanent atrial fib on anticoagulation and rate control/ coronary artery disease on statin and platelet inhibitor therapy # Diabetes mellitus type 2 on treatment, Metformin currently held due to renal insufficiency at the moment # pulmonary hypertension # acute on chronic renal insufficiency with some improvement here # 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 Chronic, patient manages at home w/ norco PRN I reviewed her case in detail today with Carmel Pollard of Cardiology. She does seem to be diuresing well but still has quite a bit of fluids and needs further extensive diuresis. Her infection seems responding fairly well also and needs a little more antibiotic for that as detailed by Dr. Arce. Am concerned that she is fairly somnolent, and not really able to get up and move at all. Part of this is due to pain and part of this is due to her habitus and a severe generalized weakness. It is hard for me at this time no other baseline mobility and activity level is and will need to trying contact family or other people know her to get a better picture of this. At this time is clear she will not be able to take care of herself and will need 24 hour supervision. PLANS: - continue diuresis -Continue antibiotic and wound care -Recheck renal function and follow that closely -Will consider resumption of metformin if her renal failure improves but otherwise will need to use other measures for treating diabetes -Physical and occupational therapy as well as we can though her pain inhibits her from participation -May need to make some changes in her pain management if she does not have improvement as the edema decreases -Continue current cardiac medications otherwise SUBJECTIVE: ongoing pain in limbs specially with any movement which is per the patient significantly inhibiting her participation in nursing care and therapies. 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 I think it is most likely due to her neuropathy which is the patient's opinion as well. skin warm dry color ok resps not labored lungs clear BSs heart regular abd soft nondistended nontender, bowel sounds present limbs warm, Severe edema below the knees bilaterally, and there is stasis dermatitis but really not much in the way of findings to suggest cellulitis at this point anymore. She had has the wound on the left calf unchanged iv site ok Objective: Vital Signs Temp Pulse Resp BP Pulse Ox 36.8 C 94 18 139/93 H 95 02/28/17 15:45 02/28/17 15:45 02/28/17 15:45 02/28/17 15:45 02/28/17 15:45 Laboratory Results 02/28/17 04:00 02/28/17 04:00 02/27/17 02/28/17 03/01/17 06:59 06:59 06:59 Intake Total 980 500 250 Balance 980 500 250 PT 17.1 SEC (12.0-15.0) H 02/24/17 09:30 INR 1.40 (0.83-1.16) H 02/24/17 09:30 ICD10 Worksheet Patient Problems: Problems Problem Status Onset Edema, peripheral Acute Lower extremity cellulitis Acute Acute respiratory failure with hypoxemia Acute Afib Acute Aortic stenosis Acute CAD (coronary artery disease) Acute CHF (congestive heart failure) Acute Chronic Disease Mgmt/Transitional Care Acute DM (diabetes mellitus), type 2 Acute Diabetic leg ulcer Acute H/O heart artery stent Acute Mitral stenosis Acute Obesity (BMI 30-39.9) Acute
[2017-02-28] MEDS ORDERED: POTASSIUM CL 20 MEQ TAB PO ONE (18:09)
[2017-02-28] MEDS: ATORVASTATIN CALCIUM 20 MG TAB PO SCH (21:18)
[2017-02-28] MEDS: INSULIN GLARGINE 100 UNITS/ML SYRINGE SC SCH (22:11)
[2017-03-01 06:02] LABS: % IMMATURE GRANULYOCYTES 0.6 % (0.0-1.1); ABSOLUTE IMMATURE GRANULOCYTES 0.07 10^3/uL (0.00-0.10); ADD DIFF? NO; ADD MORPH? NO; ADD SCAN? NO; ATYPICAL LYMPHOCYTE FLAG 10 (0-99); FRAGMENT RBC FLAG 0 (0-99); HEMATOCRIT 31.9 % (38.0-47.0); HEMOGLOBIN 9.9 g/dL (12.6-16.3); LEFT SHIFT FLG 0 (0-99); LIPEMIA HEMOLYSIS FLAG 80 (0-99); MEAN CELL HEMOGLOBIN 26.1 pg (27.9-34.1); MEAN CELL VOLUME 83.9 fL (81.5-99.8); MEAN PLATELET VOLUME 10.1 fL (8.7-11.7); PLATELET CLUMPS FLAG 0 (0-99); PLATELET COUNT 254 10^3/uL (150-400); RED CELL DISTRIBUTION WIDTH 19.8 % (11.5-15.2)
[2017-03-01 06:15] LABS: ANION GAP 12 mEq/L (8-16); CALCIUM 8.3 mg/dL (8.5-10.4); CARBON DIOXIDE 28 mEq/l (22-31); CHLORIDE 95 mEq/L (97-110); CREATININE 1.5 mg/dL (0.6-1.0); GLOMERULAR FILTRATION RATE 33; GLUCOSE 120 mg/dL (70-100); SODIUM 135 mEq/L (134-144)
[2017-03-01] MEDS: LEVOTHYROXINE 100 MCG TAB PO SCH (06:24)
[2017-03-01] MEDS: SENNOSIDES/DOCUSATE SODIUM TAB PO SCH ×2 (09:17→20:34)
[2017-03-01] MEDS: MULTIVITAMINS 1 EACH TAB PO SCH (09:18)
[2017-03-01] MEDS: DILTIAZEM 30 MG TAB PO SCH ×2 (09:18→20:34)
[2017-03-01] MEDS: HYDROCODONE/APAP 5/325 TAB PO PRN ×2 (09:18→20:34)
[2017-03-01] MEDS: APIXABAN 2.5 MG TAB PO SCH ×2 (09:18→20:36)
[2017-03-01] MEDS: CHOLECALCIFEROL VIT D3 2,000 UNITS TAB/CAP PO SCH (09:18)
[2017-03-01] MEDS: FUROSEMIDE 80 MG TAB PO SCH ×2 (09:18→15:17)
[2017-03-01] MEDS: DULoxetine 60 MG CAP PO SCH (09:18)
[2017-03-01] MEDS: INSULIN LISPRO 100 UNIT/ML SC SCH ×3 (09:19→18:38)
--- NOTE | 2017-03-01 10:04 | PDCARPN ---
Cardiology Progress Note Chief Complaint: I am not feeling as well as yesterday. Assessment/Plan: Assessment: Patient is an 81 y/o F with a history of valvular heart disease s/p TAVR in 2014 , CAD with non critical lesions, CMP (EF of 45% in the past with documentation of improvement post TAVR to 55%), CHF (history), pHTN (60 mm Hg), pAF, now thought to at least persistent if not permanent a fib, HTN, DM with neuropathy, HLP, and arthritis (affecting shoulders and hips), and renal insufficiency, who presented to [facility] after fall. She was found to have severe lower extremity edema and cellulitis as well as a 10 pound weight gain. Bedside echocardiography with EF of 45-55% (somewhat limited windows given patient's body position). Unchanged RVSP from prior echo. More RV dilation was noted and as a result, more TR (mild in past, more moderate at present). Plan: 1. CHF acute on chronic- Currently on IV Lasix and PRN Metolazone. Her weight and I/O are inaccurate secondary to poor mobility and incontinence. Unable to place cunningham secondary to pain. Clinically she does seem to be improving. Edema is below the knee. Continue Lasix IV but will hold Metolazone secondary to small increase in her BUN/CR. Likely resume Metolazone tomorrow. 2. Cellulitis- per ID 3. Paroxysmal vs permanent atrial fibrillation- rate controlled with Dilt and on Eliquis (renal dosing) for CVA prophylaxis. OF NOTE IS THAT NIKITA TOSCANO MD IS HER USUAL SALES COMMUNICATIONS MANAGER. I spoke to him today, and he is going to check his office records to determine if the patient is considered paroxysmal, persistent , or permanent atrial fibrillation. The patient told me that the last time she was shocked into sinus rhythm it only held for two days. She said this was done here with Nikita Toscano, but the last cardioversion I see was last November. Nikita plans to communicate to the hospital team that information tomorrow. If she is not truly a permanent atrial fibrillation patient, she would probably benefit from another trial of CÉSAR/Cardioversion to try to help her get out of the hospital. I do not believe I would do cardioversion even though she is on anticoagulation without a pre cardioversion CÉSAR given her history of mitral stenosis and the high risk of stroke in female patients with that type of valvular heart disease. 4. h/o TAVR- stable 5. CMP-Not on ZAID-I secondary to renal insufficiency. Consider BB once more stable. 6. CRI- continue to monitor 7. PHTN 8. CAD on statin 9. Her main issue today is hypokalemia in the setting of renal insufficiency and ongoing IV diuretics. I think we need to check and replace her Magnesium if necessary, and then carefully replace her Potassium as well. I have discussed this with Dr. Abraham Damon who will address this issue today via the electrolyte protocol. 02/28/17 09:17 Plan: 03/01/17 10:04 Reviewed/Discussed With: family, hospitalist, multidisciplinary team, other ( Nikita Toscano MD) Time Spent With Patient: 20 minutes Objective: Vital Signs (8 Hrs) Temp Pulse Resp BP Pulse Ox 03/01/17 08:00 36.8 C 92 13 124/80 H 92 03/01/17 04:00 36.7 C 83 18 135/78 H 94 Intake/Output (24 Hrs) 02/28/17 03/01/17 03/02/17 05:59 05:59 05:59 Intake Total 575 1400 Balance 575 1400 Intake: Oral (ml) 350 1150 IV Intake (ml) 75 50 IV Infused (ml) 150 200 ceFAZolin 1 GM/DEXTROSE 150 200 50 ml @ 200 mls/hr IV Q8HRS [facility] Rx#:[id number] Other: Weight 115 kg 114.901 kg Intake Quantity Yes Sufficient Number of Voids Bedside Commode 1 Incontinence 1 1 Number of Stools Bedside Commode 1 1 Incontinence 4 Result Diagrams: 03/01/17 05:55 03/01/17 05:55 Telemetry: A fib with controlled ventricular response - Physical Exam Constitutional: obese, other (chronically ill) Eyes: anicteric sclera, No pale conjunctiva Ears, Nose, Mouth, Throat: moist mucous membranes Cardiovascular: systolic murmur, irregularly irregular, other (4+pitting edema bilaterally) Respiratory: reduced air movement, other (decreased air movement bilaterally) Gastrointestinal: normoactive bowel sounds, other (obese) Neurologic: AAOx3 Psychiatric: cooperative, interactive ICD10 Worksheet Patient Problems: Problems Problem Status Onset Edema, peripheral Acute Lower extremity cellulitis Acute Acute respiratory failure with hypoxemia Acute Afib Acute Aortic stenosis Acute CAD (coronary artery disease) Acute CHF (congestive heart failure) Acute Chronic Disease Mgmt/Transitional Care Acute DM (diabetes mellitus), type 2 Acute Diabetic leg ulcer Acute H/O heart artery stent Acute Mitral stenosis Acute Obesity (BMI 30-39.9) Acute
--- NOTE | 2017-03-01 12:25 | PCMIDPN ---
Assessment/Plan: # RLE cellulitis: exam unchanged compared to yesterday - residual LE changes seem most c/w venous insufficiency without residual cellulitis. Daughter at bedside and agrees --dc cefazolin today --call ID for additional questions --continue LE compression for underlying venous insufficiency # Leukocytosis: persistent elevation, AF, No further liquid stools. No abd pain. otherwise no localizing symptoms --continue to monitor # E coli in urine: no urinary symptoms. s/p 5 days of cefazolin which would cover e coli # ARF - Cr sl up as expected with diuresis medication, Abx #5/5 cefazolin 1gm IV q8h #4 microbiology 02/24/2017 blood cultures ( 2) NGTD 02/24/2017 wound cultures 3+ PsA, enterococcus 02/24/2017 Ucx E coli 10K Subjective: very cheerful today formed BM today no c/o Objective: Vital Signs Temp Pulse Resp BP Pulse Ox 36.8 C 88 18 95/62 L 94 03/01/17 11:53 03/01/17 11:53 03/01/17 11:53 03/01/17 11:53 03/01/17 11:53 Laboratory Results 03/01/17 05:55 03/01/17 05:55 02/28/17 03/01/17 03/02/17 05:59 05:59 05:59 Intake Total 575 1400 Balance 575 1400 - Physical Exam General Appearance: alert, no apparent distress Respiratory: lungs clear, No accessory muscle use Cardiac/Chest: irregularly irregular Extremities: pedal edema, inflammation (stocking distribution B LE), other ( small wound R lateral calf, L lateral calf larger wound ~2cm ), No erythema Pelvic Exam: No cunningham Skin: No rash Neuro/Psych: alert, normal mood/affect ICD10 Worksheet Patient Problems: Problems Problem Status Onset Edema, peripheral Acute Lower extremity cellulitis Acute Acute respiratory failure with hypoxemia Acute Afib Acute Aortic stenosis Acute CAD (coronary artery disease) Acute CHF (congestive heart failure) Acute Chronic Disease Mgmt/Transitional Care Acute DM (diabetes mellitus), type 2 Acute Diabetic leg ulcer Acute H/O heart artery stent Acute Mitral stenosis Acute Obesity (BMI 30-39.9) Acute
[2017-03-01] MEDS ORDERED: POTASSIUM CL 20 MEQ TAB PO ONE (14:02)
--- NOTE | 2017-03-01 14:08 | HOSPPROG ---
Hospitalist Progress Note Assessment/Plan: DIAGNOSES: # Acute cellulitis of leg with wound infection, stasis dermatitis and stasis ulcer # Acute on chronic systolic congestive heart failure responding to diuresis # (?)Permanent atrial fib on anticoagulation and rate control/ coronary artery disease on statin and platelet inhibitor therapy # Acute encephalopathy multifactorial # acute on chronic renal insufficiency with some improvement here # Hypokalemia # Severe acute on chronic deconditioning # Diabetes mellitus type 2 on treatment, Metformin currently held due to renal insufficiency at the moment # pulmonary hypertension # 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 Chronic, patient manages at home w/ norco PRN I reviewed her case in detail today with Dr. Mayo. She does seem to be diuresing well but still needs further extensive diuresis. Her skin infection is much better and really appears resolved at this time. In terms of encephalopathy she is much better today than yesterday. PLANS: -continue diuresis -potassium replacement -Continue antibiotic and wound care -Recheck renal function and follow that closely -Will consider resumption of metformin if her renal failure improves but otherwise will need to use other measures for treating diabetes -Physical and occupational therapy as well as we can though her pain inhibits her from participation -May need to make some changes in her pain management if she does not have improvement as the edema decreases -Continue current cardiac medications otherwise SUBJECTIVE: ongoing pain in limbs specially with any movement which is per the patient significantly inhibiting her participation in nursing care and therapies. 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 I think it is most likely due to her neuropathy which is the patient's opinion as well. skin warm dry color ok resps not labored lungs clear BSs heart regular abd soft nondistended nontender, bowel sounds present limbs warm, Severe edema below the knees bilaterally, and there is stasis dermatitis but really not much in the way of findings to suggest cellulitis at this point anymore. She had has the wound on the left calf unchanged iv site ok Objective: Vital Signs Temp Pulse Resp BP Pulse Ox 36.8 C 88 18 95/62 L 94 03/01/17 11:53 03/01/17 11:53 03/01/17 11:53 03/01/17 11:53 03/01/17 11:53 Laboratory Results 03/01/17 05:55 03/01/17 05:55 02/28/17 03/01/17 03/02/17 06:59 06:59 06:59 Intake Total 500 1400 Balance 500 1400 PT 17.1 SEC (12.0-15.0) H 02/24/17 09:30 INR 1.40 (0.83-1.16) H 02/24/17 09:30 ICD10 Worksheet Patient Problems: Problems Problem Status Onset Edema, peripheral Acute Lower extremity cellulitis Acute Acute respiratory failure with hypoxemia Acute Afib Acute Aortic stenosis Acute CAD (coronary artery disease) Acute CHF (congestive heart failure) Acute Chronic Disease Mgmt/Transitional Care Acute DM (diabetes mellitus), type 2 Acute Diabetic leg ulcer Acute H/O heart artery stent Acute Mitral stenosis Acute Obesity (BMI 30-39.9) Acute
[2017-03-01] MEDS: POTASSIUM CL 10 MEQ TAB PO SCH (15:17)
[2017-03-01] MEDS: ATORVASTATIN CALCIUM 20 MG TAB PO SCH (20:34)
[2017-03-01] MEDS: INSULIN GLARGINE 100 UNITS/ML SYRINGE SC SCH (20:34)
[2017-03-02 04:26] LABS: % IMMATURE GRANULYOCYTES 0.4 % (0.0-1.1); ABSOLUTE IMMATURE GRANULOCYTES 0.04 10^3/uL (0.00-0.10); ADD DIFF? NO; ADD MORPH? NO; ADD SCAN? NO; ATYPICAL LYMPHOCYTE FLAG 10 (0-99); FRAGMENT RBC FLAG 20 (0-99); HEMOGLOBIN 10.1 g/dL (12.6-16.3); LEFT SHIFT FLG 0 (0-99); LIPEMIA HEMOLYSIS FLAG 80 (0-99); MEAN CELL HEMOGLOBIN 26.7 pg (27.9-34.1); MEAN CELL HEMOGLOBIN CONCENTR. 31.6 g/dL (32.4-36.7); MEAN CELL VOLUME 84.7 fL (81.5-99.8); MEAN PLATELET VOLUME 10.3 fL (8.7-11.7); PLATELET CLUMPS FLAG 10 (0-99); PLATELET COUNT 251 10^3/uL (150-400); RED BLOOD CELL COUNT 3.78 10^6/uL (4.18-5.33); RED CELL DISTRIBUTION WIDTH 19.7 % (11.5-15.2)
[2017-03-02 04:29] LABS: ANION GAP 12 mEq/L (8-16); CALCIUM 8.6 mg/dL (8.5-10.4); CARBON DIOXIDE 28 mEq/l (22-31); CHLORIDE 94 mEq/L (97-110); CREATININE 1.7 mg/dL (0.6-1.0); GLOMERULAR FILTRATION RATE 29; GLUCOSE 113 mg/dL (70-100); MAGNESIUM 2.2 mg/dL (1.6-2.3); POTASSIUM 3.5 mEq/L (3.5-5.2); SODIUM 134 mEq/L (134-144)
[2017-03-02] MEDS: LEVOTHYROXINE 100 MCG TAB PO SCH (05:54)
[2017-03-02] MEDS: INSULIN LISPRO 100 UNIT/ML SC SCH ×3 (09:10→18:21)
[2017-03-02] MEDS: CHOLECALCIFEROL VIT D3 2,000 UNITS TAB/CAP PO SCH (09:11)
[2017-03-02] MEDS: DULoxetine 60 MG CAP PO SCH (09:11)
[2017-03-02] MEDS: SENNOSIDES/DOCUSATE SODIUM TAB PO SCH ×2 (09:11→20:15)
[2017-03-02] MEDS: DILTIAZEM 30 MG TAB PO SCH ×2 (09:11→20:16)
[2017-03-02] MEDS: APIXABAN 2.5 MG TAB PO SCH ×2 (09:11→20:16)
[2017-03-02] MEDS: MULTIVITAMINS 1 EACH TAB PO SCH (09:11)
[2017-03-02] MEDS: FUROSEMIDE 80 MG TAB PO SCH ×2 (09:12→16:23)
--- NOTE | 2017-03-02 13:58 | HOSPPROG ---
Hospitalist Progress Note Assessment/Plan: # Acute cellulitis of leg with wound infection, stasis dermatitis and stasis ulcer * Off antibiotics * Watching legs # Acute on chronic systolic congestive heart failure responding to diuresis * On home doses of Lasix # (?)Permanent atrial fib on anticoagulation and rate control/ coronary artery disease on statin and platelet inhibitor therapy # Acute encephalopathy multifactorial * Resolved # acute on chronic renal insufficiency with some improvement here # Hypokalemia # Severe acute on chronic deconditioning * Will need SNF # Diabetes mellitus type 2 on treatment, Metformin currently held due to renal insufficiency at the moment # pulmonary hypertension # 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 Chronic, patient manages at home w/ norco PRN # probable SNF tomorrow Subjective: Feels weak overall. Says the swelling in her legs are better than it has been Objective: Vital Signs Temp Pulse Resp BP Pulse Ox 36.8 C 89 17 109/61 94 03/02/17 12:00 03/02/17 12:00 03/02/17 12:00 03/02/17 12:00 03/02/17 12:00 Laboratory Results 03/02/17 03:45 03/02/17 03:45 03/01/17 03/02/17 03/03/17 05:59 05:59 05:59 Intake Total 1400 800 Output Total 300 Balance 1400 500 PT 17.1 SEC (12.0-15.0) H 02/24/17 09:30 INR 1.40 (0.83-1.16) H 02/24/17 09:30 - Physical Exam Constitutional: no apparent distress, appears nourished, not in pain Eyes: anicteric sclera, EOMI Ears, Nose, Mouth, Throat: moist mucous membranes, hearing normal Cardiovascular: regular rate and rhythym, no murmur, rub, or gallop, edema (2+) Respiratory: no respiratory distress, no rales or rhonchi, clear to auscultation Gastrointestinal: normoactive bowel sounds, soft, non-tender abdomen, no palpable masses Neurologic: AAOx3 Psychiatric: interacting appropriately, not anxious, not encephalopathic, thought process linear ICD10 Worksheet Patient Problems: Problems Problem Status Onset Edema, peripheral Acute Lower extremity cellulitis Acute Acute respiratory failure with hypoxemia Acute Afib Acute Aortic stenosis Acute CAD (coronary artery disease) Acute CHF (congestive heart failure) Acute Chronic Disease Mgmt/Transitional Care Acute DM (diabetes mellitus), type 2 Acute Diabetic leg ulcer Acute H/O heart artery stent Acute Mitral stenosis Acute Obesity (BMI 30-39.9) Acute
--- NOTE | 2017-03-02 14:52 | PDCARPN ---
Cardiology Progress Note Assessment/Plan: Congestive Heart Failure- combined systolic/diastolic with a contribution from valvular heart disease. Continues to exhibit severe lower extremity edema. Receiving furosemide BID. Had also been on metolazone. However, this is currently on hold secondary to worsening renal function indices. Continue to follow electrolytes and renal function. Consider a continuous furosemide drip. Valvular Heart Disease- characterized by aortic stenosis status post TAVR, mild- to-moderate mitral stenosis, and moderate to severe tricuspid regurgitation. Likely not a candidate for further procedural/surgical interventions. Atrial Fibrillation- has undergone cardioversion 3 times in the past year and has failed to maintain sinus rhythm each time despite escalating doses of amiodarone. Was essentially relegated to chronic atrial fibrillation [address] Cuevas stopped her amiodarone and started diltiazem. Continues on systemic anticoagulation for stroke prophylaxis. Cardiomyopathy- LVEF 45-50%. Coronary Artery Disease- h/o PCI of the RCA; diffuse mild to meoderate irregularities of LAD and Circumflex on cath in 2014; no angina. Continue statin for secondary prevention. Pulmonary Hypertension- PA systilic pressure 60 to 65 mmHg. 03/02/17 14:48 Subjective: No specific complaints. Thinks she feels better than when admitted. Objective: Vital Signs (8 Hrs) Temp Pulse Resp BP Pulse Ox 03/02/17 12:00 36.8 C 89 17 109/61 94 03/02/17 09:11 95 130/86 H 03/02/17 08:00 36.6 C 84 18 130/86 H 96 Intake/Output (24 Hrs) 03/01/17 03/02/17 03/03/17 05:59 05:59 05:59 Intake Total 1400 800 Output Total 300 Balance 1400 500 Intake: Oral (ml) 1150 800 IV Intake (ml) 50 IV Infused (ml) 200 ceFAZolin 1 GM/DEXTROSE 200 50 ml @ 200 mls/hr IV Q8HRS [facility] Rx#:[id number] Output: Urine (ml) 300 Bedside Commode 300 Other: Weight 115 kg Number of Voids Bedside Commode 2 Incontinence 1 2 Number of Stools Bedside Commode 1 1 Bladder Scan Volume (ml) Bedside Commode 429 Result Diagrams: 03/02/17 03:45 03/02/17 03:45 - Physical Exam Constitutional: no apparent distress, obese Eyes: anicteric sclera Ears, Nose, Mouth, Throat: moist mucous membranes Cardiovascular: systolic murmur, irregularly irregular Respiratory: inspiratory crackles (at bases; L>R) Gastrointestinal: normoactive bowel sounds, no tenderness, no masses Skin: other (3+ LE edema;weeping wound dressed on RLE) Neurologic: AAOx3 Psychiatric: not anxious ICD10 Worksheet Patient Problems: Problems Problem Status Onset Acute respiratory failure with hypoxemia Acute CHF (congestive heart failure) Acute Afib Acute H/O heart artery stent Acute CAD (coronary artery disease) Acute Aortic stenosis Acute Mitral stenosis Acute DM (diabetes mellitus), type 2 Acute Obesity (BMI 30-39.9) Acute Chronic Disease Mgmt/Transitional Care Acute Diabetic leg ulcer Acute Lower extremity cellulitis Acute Edema, peripheral Acute
[2017-03-02] MEDS: POTASSIUM CL 10 MEQ TAB PO SCH (16:23)
[2017-03-02] MEDS: INSULIN GLARGINE 100 UNITS/ML SYRINGE SC SCH (20:15)
[2017-03-02] MEDS: HYDROCODONE/APAP 5/325 TAB PO PRN (20:16)
[2017-03-02] MEDS: ATORVASTATIN CALCIUM 20 MG TAB PO SCH (20:16)
[2017-03-03 04:04] LABS: % IMMATURE GRANULYOCYTES 0.6 % (0.0-1.1); ABSOLUTE IMMATURE GRANULOCYTES 0.07 10^3/uL (0.00-0.10); ADD DIFF? NO; ADD MORPH? NO; ADD SCAN? NO; ATYPICAL LYMPHOCYTE FLAG 10 (0-99); FRAGMENT RBC FLAG 0 (0-99); HEMATOCRIT 31.6 % (38.0-47.0); HEMOGLOBIN 9.8 g/dL (12.6-16.3); LEFT SHIFT FLG 0 (0-99); LIPEMIA HEMOLYSIS FLAG 80 (0-99); MEAN CELL HEMOGLOBIN 26.3 pg (27.9-34.1); MEAN CELL VOLUME 84.7 fL (81.5-99.8); PLATELET CLUMPS FLAG 10 (0-99); PLATELET COUNT 245 10^3/uL (150-400); RED BLOOD CELL COUNT 3.73 10^6/uL (4.18-5.33); RED CELL DISTRIBUTION WIDTH 19.2 % (11.5-15.2)
[2017-03-03 04:24] LABS: ANION GAP 13 mEq/L (8-16); CALCIUM 8.1 mg/dL (8.5-10.4); CARBON DIOXIDE 27 mEq/l (22-31); CHLORIDE 94 mEq/L (97-110); CREATININE 1.5 mg/dL (0.6-1.0); GLOMERULAR FILTRATION RATE 33; GLUCOSE 138 mg/dL (70-100); POTASSIUM 3.2 mEq/L (3.5-5.2); SODIUM 134 mEq/L (134-144)
[2017-03-03] MEDS: LEVOTHYROXINE 100 MCG TAB PO SCH (05:45)
[2017-03-03] MEDS ORDERED: POTASSIUM CL 20 MEQ TAB PO ONE (08:20)
[2017-03-03] MEDS ORDERED: FUROSEMIDE 100 MG/10 ML VIAL IVP SCH (09:00)
[2017-03-03] MEDS: INSULIN LISPRO 100 UNIT/ML SC SCH ×3 (09:02→18:13)
[2017-03-03] MEDS: SENNOSIDES/DOCUSATE SODIUM TAB PO SCH ×2 (09:04→21:07)
[2017-03-03] MEDS: MULTIVITAMINS 1 EACH TAB PO SCH (09:05)
[2017-03-03] MEDS: DILTIAZEM 30 MG TAB PO SCH ×2 (09:05→21:08)
[2017-03-03] MEDS: APIXABAN 2.5 MG TAB PO SCH ×2 (09:05→21:08)
[2017-03-03] MEDS: DULoxetine 60 MG CAP PO SCH (09:05)
[2017-03-03] MEDS: FUROSEMIDE 80 MG in D5W 50 ML IV SCH ×2 (09:06→15:11)
[2017-03-03] MEDS: CHOLECALCIFEROL VIT D3 2,000 UNITS TAB/CAP PO SCH (09:06)
--- NOTE | 2017-03-03 13:35 | HOSPPROG ---
Hospitalist Progress Note Assessment/Plan: # Acute cellulitis of leg with wound infection, stasis dermatitis and stasis ulcer * Off antibiotics * Watching legs # Acute on chronic systolic congestive heart failure responding to diuresis * While in the hospital will try to diurese her a little bit more aggressively * Switch to IV Lasix * Will add a little bit metolazone tomorrow morning # (?)Permanent atrial fib on anticoagulation and rate control/ coronary artery disease on statin and platelet inhibitor therapy # Acute encephalopathy multifactorial * Resolved # acute on chronic renal insufficiency with some improvement here # Hypokalemia # Severe acute on chronic deconditioning * Will need SNF # Diabetes mellitus type 2 on treatment, Metformin currently held due to renal insufficiency at the moment # pulmonary hypertension # 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 Chronic, patient manages at home w/ norco PRN # probable SNF soon after more diuresis Subjective: No new complaints or changes Objective: Vital Signs Temp Pulse Resp BP Pulse Ox 36.9 C 90 16 120/47 L 96 03/03/17 11:30 03/03/17 11:30 03/03/17 11:30 03/03/17 11:30 03/03/17 11:30 Laboratory Results 03/03/17 03:52 03/03/17 03:52 03/02/17 03/03/17 03/04/17 05:59 05:59 05:59 Intake Total 800 850 Output Total 300 Balance 500 850 PT 17.1 SEC (12.0-15.0) H 02/24/17 09:30 INR 1.40 (0.83-1.16) H 02/24/17 09:30 - Physical Exam Constitutional: no apparent distress, appears nourished, not in pain Eyes: anicteric sclera, EOMI Ears, Nose, Mouth, Throat: moist mucous membranes, hearing normal Cardiovascular: regular rate and rhythym, edema (3+) Respiratory: no respiratory distress, no rales or rhonchi, clear to auscultation Gastrointestinal: normoactive bowel sounds, soft, non-tender abdomen, no palpable masses Skin: warm Neurologic: AAOx3 Psychiatric: interacting appropriately, not anxious, not encephalopathic, thought process linear ICD10 Worksheet Patient Problems: Problems Problem Status Onset Edema, peripheral Acute Lower extremity cellulitis Acute Acute respiratory failure with hypoxemia Acute Afib Acute Aortic stenosis Acute CAD (coronary artery disease) Acute CHF (congestive heart failure) Acute Chronic Disease Mgmt/Transitional Care Acute DM (diabetes mellitus), type 2 Acute Diabetic leg ulcer Acute H/O heart artery stent Acute Mitral stenosis Acute Obesity (BMI 30-39.9) Acute
[2017-03-03] MEDS: POTASSIUM CL 10 MEQ TAB PO SCH (15:12)
--- NOTE | 2017-03-03 15:29 | PDCARPN ---
Cardiology Progress Note Assessment/Plan: Congestive Heart Failure- combined systolic/diastolic with a contribution from valvular heart disease and chronic cor pulmonale. Continues to exhibit severe lower extremity edema. Worsening renal function indices have limited aggressiveness of diuretic regimen. Creatinine trending back in the right direction. IV furosemide switched back to IV route with plan for metolazone tomorrow. Continue to follow electrolytes and renal function. If progress remains unsatisfactory, consider combination of a furosemide drip, long acting nitrate, and hydralazine. Tracking her progress is hampered by lack of a Avelar catheter and incontinence issues negating accurate I/O. Valvular Heart Disease- characterized by aortic stenosis status post TAVR, mild- to-moderate mitral stenosis, and moderate to severe tricuspid regurgitation. Likely not a candidate for further procedural/surgical interventions. Atrial Fibrillation- has undergone cardioversion 3 times in the past year and has failed to maintain sinus rhythm each time despite escalating doses of amiodarone. Was essentially relegated to chronic atrial fibrillation [address] Cuevas stopped her amiodarone and started diltiazem. Continues on systemic anticoagulation for stroke prophylaxis. Cardiomyopathy- LVEF 45-50%. Coronary Artery Disease- h/o PCI of the RCA; diffuse mild to moderate irregularities of LAD and Circumflex on cath in 2014; no angina. Continue statin for secondary prevention. Pulmonary Hypertension- PA systolic pressure 60 to 65 mmHg. 03/03/17 15:31 Subjective: No complaints. Objective: Vital Signs (8 Hrs) Temp Pulse Resp BP Pulse Ox 03/03/17 11:30 36.9 C 90 16 120/47 L 96 Intake/Output (24 Hrs) 03/02/17 03/03/17 03/04/17 05:59 05:59 05:59 Intake Total 800 850 Output Total 300 Balance 500 850 Intake: Oral (ml) 800 850 Output: Urine (ml) 300 Bedside Commode 300 Other: Weight 115 kg 118.2 kg Intake Quantity Yes Sufficient Number of Voids Bedside Commode 2 2 Incontinence 2 1 1 Number of Stools Bedside Commode 1 1 Bladder Scan Volume (ml) Bedside Commode 429 Result Diagrams: 03/03/17 03:52 03/03/17 03:52 - Physical Exam Constitutional: no apparent distress, obese Eyes: anicteric sclera Ears, Nose, Mouth, Throat: moist mucous membranes Cardiovascular: systolic murmur, irregularly irregular Respiratory: inspiratory crackles Gastrointestinal: normoactive bowel sounds, no tenderness, no masses Skin: other (Severe LE edema) ICD10 Worksheet Patient Problems: Problems Problem Status Onset Edema, peripheral Acute Lower extremity cellulitis Acute Acute respiratory failure with hypoxemia Acute Afib Acute Aortic stenosis Acute CAD (coronary artery disease) Acute CHF (congestive heart failure) Acute Chronic Disease Mgmt/Transitional Care Acute DM (diabetes mellitus), type 2 Acute Diabetic leg ulcer Acute H/O heart artery stent Acute Mitral stenosis Acute Obesity (BMI 30-39.9) Acute
[2017-03-03] MEDS: INSULIN GLARGINE 100 UNITS/ML SYRINGE SC SCH (21:07)
[2017-03-03] MEDS: ATORVASTATIN CALCIUM 20 MG TAB PO SCH (21:08)
[2017-03-04 05:00] LABS: % IMMATURE GRANULYOCYTES 0.7 % (0.0-1.1); ABSOLUTE IMMATURE GRANULOCYTES 0.08 10^3/uL (0.00-0.10); ADD DIFF? NO; ADD MORPH? NO; ADD SCAN? NO; ATYPICAL LYMPHOCYTE FLAG 10 (0-99); FRAGMENT RBC FLAG 20 (0-99); HEMATOCRIT 31.8 % (38.0-47.0); HEMOGLOBIN 9.9 g/dL (12.6-16.3); LEFT SHIFT FLG 0 (0-99); LIPEMIA HEMOLYSIS FLAG 80 (0-99); MEAN CELL HEMOGLOBIN 26.2 pg (27.9-34.1); MEAN CELL HEMOGLOBIN CONCENTR. 31.1 g/dL (32.4-36.7); MEAN CELL VOLUME 84.1 fL (81.5-99.8); PLATELET CLUMPS FLAG 0 (0-99); PLATELET COUNT 276 10^3/uL (150-400); RED BLOOD CELL COUNT 3.78 10^6/uL (4.18-5.33); RED CELL DISTRIBUTION WIDTH 19.3 % (11.5-15.2)
[2017-03-04 05:19] LABS: ANION GAP 12 mEq/L (8-16); CALCIUM 8.8 mg/dL (8.5-10.4); CARBON DIOXIDE 27 mEq/l (22-31); CHLORIDE 95 mEq/L (97-110); CREATININE 1.5 mg/dL (0.6-1.0); GLOMERULAR FILTRATION RATE 33; GLUCOSE 109 mg/dL (70-100); POTASSIUM 3.6 mEq/L (3.5-5.2); SODIUM 134 mEq/L (134-144)
[2017-03-04] MEDS: LEVOTHYROXINE 100 MCG TAB PO SCH (05:37)
[2017-03-04] MEDS: INSULIN LISPRO 100 UNIT/ML SC SCH ×3 (08:28→16:31)
[2017-03-04] MEDS: FUROSEMIDE 80 MG in D5W 50 ML IV SCH ×2 (08:52→15:44)
[2017-03-04] MEDS: SENNOSIDES/DOCUSATE SODIUM TAB PO SCH ×2 (08:54→21:27)
[2017-03-04] MEDS: APIXABAN 2.5 MG TAB PO SCH ×2 (08:54→21:21)
[2017-03-04] MEDS: DULoxetine 60 MG CAP PO SCH (08:54)
[2017-03-04] MEDS: DILTIAZEM 30 MG TAB PO SCH ×2 (08:55→21:21)
[2017-03-04] MEDS: CHOLECALCIFEROL VIT D3 2,000 UNITS TAB/CAP PO SCH (08:55)
[2017-03-04] MEDS: METOLAZONE 2.5 MG TAB PO SCH (08:55)
[2017-03-04] MEDS: MULTIVITAMINS 1 EACH TAB PO SCH (08:55)
--- NOTE | 2017-03-04 10:49 | PDCARPN ---
Cardiology Progress Note Assessment/Plan: Congestive Heart Failure- combined systolic/diastolic with a contribution from valvular heart disease and chronic cor pulmonale. Continues to exhibit severe lower extremity edema. Worsening renal function indices have limited aggressiveness of diuretic regimen. Creatinine has trended back in the right direction and is holding. Continue BID IV furosemide; metolazone reintroduced today. Continue to follow electrolytes and renal function. If progress remains unsatisfactory, consider combination of a furosemide drip, long acting nitrate, and hydralazine. Tracking her progress is hampered by lack of a Avelar catheter and incontinence issues negating accurate I/O; will try again for Avelar placement. Valvular Heart Disease- characterized by aortic stenosis status post TAVR, mild- to-moderate mitral stenosis, and moderate to severe tricuspid regurgitation. Likely not a candidate for further procedural/surgical interventions. Atrial Fibrillation- has undergone cardioversion 3 times in the past year and has failed to maintain sinus rhythm each time despite escalating doses of amiodarone. Was essentially relegated to chronic atrial fibrillation [address] Cuevas stopped her amiodarone and started diltiazem. Continues on systemic anticoagulation for stroke prophylaxis. Cardiomyopathy- LVEF 45-50%. Coronary Artery Disease- h/o PCI of the RCA; diffuse mild to moderate irregularities of LAD and Circumflex on cath in 2014; no angina. Continue statin for secondary prevention. Pulmonary Hypertension- PA systolic pressure 60 to 65 mmHg. 03/04/17 10:46 Subjective: No complaints. Reviewed/Discussed With: hospitalist Objective: Vital Signs (8 Hrs) Temp Pulse Resp BP Pulse Ox 03/04/17 07:13 36.6 C 89 20 120/63 98 03/04/17 03:36 37 C 88 20 113/90 H 97 Intake/Output (24 Hrs) 03/03/17 03/04/17 03/05/17 05:59 05:59 05:59 Intake Total 850 220 Output Total 400 Balance 850 -180 Intake: Oral (ml) 850 220 Output: Urine (ml) 400 Incontinence 400 Other: Weight 118.2 kg Intake Quantity Yes Sufficient Number of Voids Bedside Commode 2 1 Incontinence 1 1 Number of Stools Bedside Commode 1 1 Result Diagrams: 03/04/17 03:55 03/04/17 03:55 - Physical Exam Constitutional: no apparent distress, obese Eyes: anicteric sclera Ears, Nose, Mouth, Throat: moist mucous membranes Cardiovascular: systolic murmur, irregularly irregular Respiratory: inspiratory crackles (bases) Gastrointestinal: normoactive bowel sounds, no tenderness, no masses Skin: other (severe LE edema) Neurologic: AAOx3 Psychiatric: not anxious ICD10 Worksheet Patient Problems: Problems Problem Status Onset Edema, peripheral Acute Lower extremity cellulitis Acute Acute respiratory failure with hypoxemia Acute Afib Acute Aortic stenosis Acute CAD (coronary artery disease) Acute CHF (congestive heart failure) Acute Chronic Disease Mgmt/Transitional Care Acute DM (diabetes mellitus), type 2 Acute Diabetic leg ulcer Acute H/O heart artery stent Acute Mitral stenosis Acute Obesity (BMI 30-39.9) Acute
[2017-03-04] MEDS ORDERED: LORazepam 2 MG/ML INJ IVP ONE (12:33)
[2017-03-04] MEDS: POTASSIUM CL 10 MEQ TAB PO SCH (15:44)
--- NOTE | 2017-03-04 16:02 | HOSPPROG ---
Hospitalist Progress Note Assessment/Plan: # Acute cellulitis of leg with wound infection, stasis dermatitis and stasis ulcer * Off antibiotics * Watching legs # Acute on chronic systolic congestive heart failure responding to diuresis * While in the hospital will try to diurese her a little bit more aggressively * Switch to IV Lasix * Continue IV Lasix and metolazone - may need Lasix drip # (?)Permanent atrial fib on anticoagulation and rate control/ coronary artery disease on statin and platelet inhibitor therapy # Acute encephalopathy multifactorial * Resolved # acute on chronic renal insufficiency with some improvement here # Hypokalemia # Severe acute on chronic deconditioning * Will need SNF # Diabetes mellitus type 2 on treatment, Metformin currently held due to renal insufficiency at the moment # pulmonary hypertension # 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 Chronic, patient manages at home w/ norco PRN # probable SNF soon after more diuresis Subjective: Does not feel there is much change with her edema. Wants to go home though Objective: Vital Signs Temp Pulse Resp BP Pulse Ox 37.0 C 92 20 139/75 H 96 03/04/17 11:26 03/04/17 11:26 03/04/17 11:26 03/04/17 11:26 03/04/17 11:26 Laboratory Results 03/04/17 03:55 03/04/17 03:55 03/03/17 03/04/17 03/05/17 05:59 05:59 05:59 Intake Total 850 220 Output Total 400 Balance 850 -180 PT 17.1 SEC (12.0-15.0) H 02/24/17 09:30 INR 1.40 (0.83-1.16) H 02/24/17 09:30 Discussed with Cardiology Tele personally viewed interpreted atrial fibrillation - Physical Exam Constitutional: no apparent distress, appears nourished, not in pain Eyes: anicteric sclera, EOMI Ears, Nose, Mouth, Throat: moist mucous membranes, hearing normal Cardiovascular: irregularly irregular, edema (3+) Respiratory: no respiratory distress, no rales or rhonchi, clear to auscultation Gastrointestinal: normoactive bowel sounds, soft, non-tender abdomen, no palpable masses Skin: warm Neurologic: AAOx3 Psychiatric: interacting appropriately, not anxious, not encephalopathic, thought process linear ICD10 Worksheet Patient Problems: Problems Problem Status Onset Edema, peripheral Acute Lower extremity cellulitis Acute Acute respiratory failure with hypoxemia Acute Afib Acute Aortic stenosis Acute CAD (coronary artery disease) Acute CHF (congestive heart failure) Acute Chronic Disease Mgmt/Transitional Care Acute DM (diabetes mellitus), type 2 Acute Diabetic leg ulcer Acute H/O heart artery stent Acute Mitral stenosis Acute Obesity (BMI 30-39.9) Acute
[2017-03-04] MEDS: HYDROCODONE/APAP 5/325 TAB PO PRN ×2 (16:31→21:21)
--- NOTE | 2017-03-04 16:56 | WOCRNPDOC ---
[facility] Advanced Assessment Note - Skin Integrity Problem, Advanced Assess Left Breast Excoriation Dressing Type: Open to Air Wound Bed Constitution: Healed Left Pannus Excoriation Dressing Type: Open to Air Wound Bed Constitution: Healed Left Lower Lateral Leg Venous Stasis Ulcer Dressing Type: AllevBoracci Life Integumentary Issue Intervention: Visualized Under Dressing [place] Wound Tissue: Hemosiderin Staining, Venous Dermatitis, Xerotic [place] Wound Swelling: None Wound Bed Constitution: Dried Exudate Site Measurement - Head-to-Toe Length X Width X Depth (cm): 0.2x0.2x0.1 Skin Integrity Problem Comment: Almost completely healed wound. No need for further dressing changes. Continue with compression. Right Lower Lateral Leg Venous Stasis Ulcer Dressing Type: [place] Life Integumentary Issue Intervention: Visualized Under Dressing Wound Bed Color: [place] Wound Edges: Epithelizing Site Measurement - Head-to-Toe Length X Width X Depth (cm): 0.5x0.5x0.1 Skin Integrity Problem Comment: Wound almost healed. Continue with compression. Wound care will sign off.
[2017-03-04] MEDS: ATORVASTATIN CALCIUM 20 MG TAB PO SCH (21:21)
[2017-03-04] MEDS: INSULIN GLARGINE 100 UNITS/ML SYRINGE SC SCH (22:09)
[2017-03-05 05:08] LABS: ANION GAP 16 mEq/L (8-16); CALCIUM 8.4 mg/dL (8.5-10.4); CARBON DIOXIDE 25 mEq/l (22-31); CHLORIDE 95 mEq/L (97-110); CREATININE 1.4 mg/dL (0.6-1.0); GLOMERULAR FILTRATION RATE 36; GLUCOSE 128 mg/dL (70-100); POTASSIUM 3.5 mEq/L (3.5-5.2); SODIUM 136 mEq/L (134-144)
[2017-03-05] MEDS: LEVOTHYROXINE 100 MCG TAB PO SCH (06:33)
[2017-03-05] MEDS: MULTIVITAMINS 1 EACH TAB PO SCH (09:02)
[2017-03-05] MEDS: CHOLECALCIFEROL VIT D3 2,000 UNITS TAB/CAP PO SCH (09:03)
[2017-03-05] MEDS: DULoxetine 60 MG CAP PO SCH (09:03)
[2017-03-05] MEDS: FUROSEMIDE 80 MG in D5W 50 ML IV SCH (09:03)
[2017-03-05] MEDS: DILTIAZEM 30 MG TAB PO SCH ×2 (09:03→20:27)
[2017-03-05] MEDS: APIXABAN 2.5 MG TAB PO SCH ×2 (09:03→20:25)
[2017-03-05] MEDS: METOLAZONE 2.5 MG TAB PO SCH (09:03)
[2017-03-05] MEDS: SENNOSIDES/DOCUSATE SODIUM TAB PO SCH ×2 (09:04→20:25)
[2017-03-05] MEDS: INSULIN LISPRO 100 UNIT/ML SC SCH ×4 (09:11→18:43)
--- NOTE | 2017-03-05 11:53 | PDCARPN ---
Cardiology Progress Note Chief Complaint: No complaints. Assessment/Plan: Congestive Heart Failure- combined systolic/diastolic with a contribution from valvular heart disease and chronic cor pulmonale. Continues to exhibit severe lower extremity edema. Worsening renal function indices have limited aggressiveness of diuretic regimen. Creatinine has trended back in the right direction and is holding. Switch to continuous IV furosemide drip. Add hydralazine for vasodilatation and improved renal blood flow; add nitrates if B/P allows. Metolazone reintroduced yesterday. Continue to follow electrolytes and renal function. Tracking her progress is hampered by lack of a Avelar catheter and incontinence issues negating accurate I/O; pt refused repeat attempt at Avelar placement. Valvular Heart Disease- characterized by aortic stenosis status post TAVR, mild- to-moderate mitral stenosis, and moderate to severe tricuspid regurgitation. Likely not a candidate for further procedural/surgical interventions. Atrial Fibrillation- has undergone cardioversion 3 times in the past year and has failed to maintain sinus rhythm each time despite escalating doses of amiodarone. Was essentially relegated to chronic atrial fibrillation [address] Cuevas stopped her amiodarone and started diltiazem. Continues on systemic anticoagulation for stroke prophylaxis. Cardiomyopathy- LVEF 45-50%. Coronary Artery Disease- h/o PCI of the RCA; diffuse mild to moderate irregularities of LAD and Circumflex on cath in 2014; no angina. Continue statin for secondary prevention. Pulmonary Hypertension- PA systolic pressure 60 to 65 mmHg. 03/05/17 11:49 Objective: Vital Signs (8 Hrs) Temp Pulse Resp BP Pulse Ox 03/05/17 08:35 36.8 C 93 19 136/83 H 96 03/05/17 04:00 36.9 C 83 19 142/80 H 94 Intake/Output (24 Hrs) 03/04/17 03/05/17 03/06/17 05:59 05:59 05:59 Intake Total 220 1000 480 Output Total 400 300 Balance -180 700 480 Intake: Oral (ml) 220 1000 480 Output: Urine (ml) 400 300 Incontinence 400 300 Other: Weight 118.2 kg 117.9 kg Number of Voids Bedside Commode 1 1 Incontinence 1 1 1 Number of Stools Bedside Commode 1 1 Incontinence 1 Result Diagrams: 03/04/17 03:55 03/05/17 03:43 - Physical Exam Constitutional: no apparent distress, obese Eyes: anicteric sclera Ears, Nose, Mouth, Throat: moist mucous membranes Cardiovascular: systolic murmur, irregularly irregular Respiratory: inspiratory crackles (at bases) Gastrointestinal: normoactive bowel sounds, no tenderness, no masses Skin: other (severe LE edema) Neurologic: AAOx3 Psychiatric: not anxious ICD10 Worksheet Patient Problems: Problems Problem Status Onset Edema, peripheral Acute Lower extremity cellulitis Acute Acute respiratory failure with hypoxemia Acute Afib Acute Aortic stenosis Acute CAD (coronary artery disease) Acute CHF (congestive heart failure) Acute Chronic Disease Mgmt/Transitional Care Acute DM (diabetes mellitus), type 2 Acute Diabetic leg ulcer Acute H/O heart artery stent Acute Mitral stenosis Acute Obesity (BMI 30-39.9) Acute
--- NOTE | 2017-03-05 14:57 | HOSPPROG ---
Hospitalist Progress Note Assessment/Plan: # Acute cellulitis of leg with wound infection, stasis dermatitis and stasis ulcer * Off antibiotics * Watching legs * more chronic venous insufficiency changes then cellulitis currently # Acute on chronic systolic congestive heart failure responding to diuresis * While in the hospital will try to diurese her a little bit more aggressively * Switch to IV Lasix gtt, cont metolazone # (?)Permanent atrial fib on anticoagulation and rate control/ coronary artery disease on statin and platelet inhibitor therapy # Acute encephalopathy multifactorial * Resolved # acute on chronic renal insufficiency with some improvement here * probably baseline # Severe acute on chronic deconditioning * Will need SNF # Diabetes mellitus type 2 on treatment, Metformin currently held due to renal insufficiency at the moment # pulmonary hypertension # 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 Chronic, patient manages at home w/ norco PRN # probable SNF after more diuresis Subjective: legs feel a little bit better Objective: Vital Signs Temp Pulse Resp BP Pulse Ox 36.8 C 92 16 130/69 H 92 03/05/17 12:00 03/05/17 12:00 03/05/17 12:00 03/05/17 12:00 03/05/17 12:00 Laboratory Results 03/04/17 03:55 03/05/17 03:43 03/04/17 03/05/17 03/06/17 05:59 05:59 05:59 Intake Total 220 1000 720 Output Total 400 300 Balance -180 700 720 PT 17.1 SEC (12.0-15.0) H 02/24/17 09:30 INR 1.40 (0.83-1.16) H 02/24/17 09:30 - Physical Exam Constitutional: no apparent distress, appears nourished, not in pain Eyes: anicteric sclera, EOMI Ears, Nose, Mouth, Throat: moist mucous membranes, hearing normal, ears appear normal Cardiovascular: irregularly irregular, edema (3+) Respiratory: no respiratory distress, no rales or rhonchi, clear to auscultation Gastrointestinal: normoactive bowel sounds, soft, non-tender abdomen, no palpable masses Skin: warm Musculoskeletal: full muscle strength, no muscle tenderness, normal joint ROM Neurologic: AAOx3 Psychiatric: interacting appropriately, not anxious, not encephalopathic, thought process linear ICD10 Worksheet Patient Problems: Problems Problem Status Onset Edema, peripheral Acute Lower extremity cellulitis Acute Acute respiratory failure with hypoxemia Acute Afib Acute Aortic stenosis Acute CAD (coronary artery disease) Acute CHF (congestive heart failure) Acute Chronic Disease Mgmt/Transitional Care Acute DM (diabetes mellitus), type 2 Acute Diabetic leg ulcer Acute H/O heart artery stent Acute Mitral stenosis Acute Obesity (BMI 30-39.9) Acute
[2017-03-05] MEDS: FUROSEMIDE 100 MG in D5W 100 ML IV SCH (16:39)
[2017-03-05] MEDS: hydrALAZINE 10 MG TAB PO SCH ×2 (16:40→20:25)
[2017-03-05] MEDS: POTASSIUM CL 10 MEQ TAB PO SCH (16:41)
[2017-03-05] MEDS: HYDROCODONE/APAP 5/325 TAB PO PRN (20:25)
[2017-03-05] MEDS: ATORVASTATIN CALCIUM 20 MG TAB PO SCH (20:27)
[2017-03-05] MEDS: INSULIN GLARGINE 100 UNITS/ML SYRINGE SC SCH (20:57)
[2017-03-06] MEDS: FUROSEMIDE 100 MG in D5W 100 ML IV SCH ×3 (02:57→21:02)
[2017-03-06] MEDS: LEVOTHYROXINE 100 MCG TAB PO SCH (04:35)
[2017-03-06] MEDS: SENNOSIDES/DOCUSATE SODIUM TAB PO SCH ×2 (07:24→21:33)
[2017-03-06] MEDS: MULTIVITAMINS 1 EACH TAB PO SCH (07:24)
[2017-03-06] MEDS: CHOLECALCIFEROL VIT D3 2,000 UNITS TAB/CAP PO SCH (07:24)
[2017-03-06] MEDS: DULoxetine 60 MG CAP PO SCH (07:24)
[2017-03-06] MEDS: hydrALAZINE 10 MG TAB PO SCH ×3 (07:24→21:37)
[2017-03-06] MEDS: METOLAZONE 2.5 MG TAB PO SCH (07:25)
[2017-03-06] MEDS: INSULIN LISPRO 100 UNIT/ML SC SCH ×3 (07:25→18:24)
[2017-03-06] MEDS: APIXABAN 2.5 MG TAB PO SCH ×2 (07:25→21:34)
[2017-03-06] MEDS: DILTIAZEM 30 MG TAB PO SCH ×2 (07:25→21:30)
[2017-03-06 10:16] LABS: ANION GAP 15 mEq/L (8-16); CALCIUM 8.7 mg/dL (8.5-10.4); CARBON DIOXIDE 27 mEq/l (22-31); CHLORIDE 93 mEq/L (97-110); CREATININE 1.4 mg/dL (0.6-1.0); GLOMERULAR FILTRATION RATE 36; GLUCOSE 188 mg/dL (70-100); POTASSIUM 2.9 mEq/L (3.5-5.2); SODIUM 135 mEq/L (134-144)
[2017-03-06] MEDS ORDERED: POTASSIUM CL 20 MEQ TAB PO ONE (11:32)
--- NOTE | 2017-03-06 11:49 | HOSPPROG ---
Hospitalist Progress Note Assessment/Plan: # Acute on chronic systolic heart failure - CXR 02/23 (personally reviewed and interpreted) vascular congestion currently on lasix drip -creatinine down this am to 1.4 - oxygen saturations 93% on 3L - cont metolazone - cont lasix gtt # acute hypokalemia - 2/2 diuresis - replete aggressively as 2.9 this am # Acute on chronic cellulitis of leg with wound infection, stasis dermatitis and stasis ulcer - PT/OT and wound care - agree no Abx at this time # Permanent atrial fib on anticoagulation - currently rate controlled in the - cont eliquis and cardizem # coronary artery disease - no active sx - cont statin and platelet inhibitor therapy # Acute encephalopathy multifactorial- Resolved # acute on chronic renal insufficiency - creatinine 1.9 -> 1.4 this am - continue careful diuresis as above # Severe acute on chronic deconditioning - PT/OT - discussed the importance of this at length - Will need SNF # Diabetes mellitus type 2 - BS 180-230 - cont hold Metformin - cont Lantus / lispro - titrate as needed # pulmonary hypertension # 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 Chronic, patient manages at home w/ norco PRN # diet - cardiac # proph - eliquis # dispo - > 2 MN as requiring IV lasix gtt and active monitoring of diuresis - will need SNF at discharge I have discussed the case with CM - working on placement currently Subjective: feels very lonely Objective: Vital Signs Temp Pulse Resp BP Pulse Ox 36.6 C 83 16 112/79 93 03/06/17 07:25 03/06/17 07:25 03/06/17 07:25 03/06/17 07:25 03/06/17 07:25 Laboratory Results 03/04/17 03:55 03/06/17 09:26 03/05/17 03/06/17 03/07/17 05:59 05:59 05:59 Intake Total 1000 1260 Output Total 300 Balance 700 1260 PT 17.1 SEC (12.0-15.0) H 02/24/17 09:30 INR 1.40 (0.83-1.16) H 02/24/17 09:30 - Physical Exam Constitutional: obese Eyes: anicteric sclera Ears, Nose, Mouth, Throat: moist mucous membranes Cardiovascular: irregularly irregular, No tachycardia Respiratory: no respiratory distress, reduced air movement Gastrointestinal: normoactive bowel sounds, soft, non-tender abdomen Genitourinary: no bladder fullness Skin: warm, normal color Musculoskeletal: No asymmetric calves Neurologic: AAOx3 Psychiatric: depressed, flat affect Lymph, Heme, Immunologic: no cervical LAD ICD10 Worksheet Patient Problems: Problems Problem Status Onset Edema, peripheral Acute Lower extremity cellulitis Acute Acute respiratory failure with hypoxemia Acute Afib Acute Aortic stenosis Acute CAD (coronary artery disease) Acute CHF (congestive heart failure) Acute Chronic Disease Mgmt/Transitional Care Acute DM (diabetes mellitus), type 2 Acute Diabetic leg ulcer Acute H/O heart artery stent Acute Mitral stenosis Acute Obesity (BMI 30-39.9) Acute
--- NOTE | 2017-03-06 12:50 | PDCARPN ---
Cardiology Progress Note Assessment/Plan: Congestive Heart Failure- combined systolic/diastolic with a contribution from valvular heart disease and chronic cor pulmonale. Continues to exhibit severe lower extremity edema. Renal function had limited aggressiveness of diuretic regimen. Creatinine has trended back in the right direction and is holding. Edema minimally improved. Increase IV furosemide drip from 10 mg/hr to 15 mg/hr. Continue hydralazine for vasodilatation and improved renal blood flow; add nitrates if B/P allows. Continue daily metolazone. Continue to follow electrolytes and renal function. Tracking her progress is hampered by lack of a Avelar catheter and incontinence issues negating accurate I/O; pt refused repeat attempt at Avelar placement; weights have not reflected any significant net diuresis. Valvular Heart Disease- characterized by aortic stenosis status post TAVR, mild- to-moderate mitral stenosis, and moderate to severe tricuspid regurgitation. Likely not a candidate for further procedural/surgical interventions. Atrial Fibrillation- has undergone cardioversion 3 times in the past year and has failed to maintain sinus rhythm each time despite escalating doses of amiodarone. Was essentially relegated to chronic atrial fibrillation [address] Cuevas stopped her amiodarone and started diltiazem. Continues on systemic anticoagulation for stroke prophylaxis. Cardiomyopathy- LVEF 45-50%. Coronary Artery Disease- h/o PCI of the RCA; diffuse mild to moderate irregularities of LAD and Circumflex on cath in 2014; no angina. Continue statin for secondary prevention. Pulmonary Hypertension- PA systolic pressure 60 to 65 mmHg. 03/06/17 12:52 Subjective: No complaints. Objective: Vital Signs (8 Hrs) Temp Pulse Resp BP Pulse Ox 03/06/17 07:25 36.6 C 83 16 112/79 93 Intake/Output (24 Hrs) 03/05/17 03/06/17 03/07/17 05:59 05:59 05:59 Intake Total 1000 1260 Output Total 300 Balance 700 1260 Intake: Oral (ml) 1000 1120 IV Infused (ml) 140 Furosemide 100 mg In D5w 140 100 ml @ 10 MG/HR 10 mls/ hr IV CONT ANAHI Rx#: [id number] Output: Urine (ml) 300 Incontinence 300 Other: Weight 117.9 kg 119.6 kg Intake Quantity Yes Sufficient Number of Voids Bedside Commode 1 Incontinence 1 2 Number of Stools Bedside Commode 1 Incontinence 1 Result Diagrams: 03/04/17 03:55 03/06/17 09:26 - Physical Exam Constitutional: no apparent distress, obese Eyes: anicteric sclera Ears, Nose, Mouth, Throat: moist mucous membranes Cardiovascular: irregularly irregular Respiratory: clear to auscultate bilat Gastrointestinal: normoactive bowel sounds, no tenderness, no masses Skin: other (slight improvement in edema) Neurologic: AAOx3 Psychiatric: flat affect ICD10 Worksheet Patient Problems: Problems Problem Status Onset Edema, peripheral Acute Lower extremity cellulitis Acute Acute respiratory failure with hypoxemia Acute Afib Acute Aortic stenosis Acute CAD (coronary artery disease) Acute CHF (congestive heart failure) Acute Chronic Disease Mgmt/Transitional Care Acute DM (diabetes mellitus), type 2 Acute Diabetic leg ulcer Acute H/O heart artery stent Acute Mitral stenosis Acute Obesity (BMI 30-39.9) Acute
[2017-03-06] MEDS ORDERED: PROTOCOL POTASSIUM 1 DOSE MISC PRN (16:08)
[2017-03-06] MEDS: POTASSIUM CL 10 MEQ TAB PO SCH (18:24)
[2017-03-06 18:34] LABS: POTASSIUM 3.2 mEq/L (3.5-5.2)
[2017-03-06] MEDS: HYDROCODONE/APAP 5/325 TAB PO PRN (18:45)
[2017-03-06] MEDS ORDERED: POTASSIUM CL 10 MEQ TAB PO ONE ×2 (18:49→21:30)
[2017-03-06] MEDS: ATORVASTATIN CALCIUM 20 MG TAB PO SCH (21:36)
[2017-03-06] MEDS: INSULIN GLARGINE 100 UNITS/ML SYRINGE SC SCH (21:39)
[2017-03-07] MEDS: FUROSEMIDE 100 MG in D5W 100 ML IV SCH ×4 (01:28→20:54)
[2017-03-07 04:21] LABS: ANION GAP 12 mEq/L (8-16); CALCIUM 8.8 mg/dL (8.5-10.4); CARBON DIOXIDE 29 mEq/l (22-31); CHLORIDE 93 mEq/L (97-110); CREATININE 1.4 mg/dL (0.6-1.0); GLOMERULAR FILTRATION RATE 36; GLUCOSE 148 mg/dL (70-100); POTASSIUM 3.3 mEq/L (3.5-5.2); SODIUM 134 mEq/L (134-144)
[2017-03-07] MEDS: LEVOTHYROXINE 100 MCG TAB PO SCH (06:54)
[2017-03-07] MEDS: INSULIN LISPRO 100 UNIT/ML SC SCH ×3 (08:04→17:34)
[2017-03-07] MEDS: APIXABAN 2.5 MG TAB PO SCH ×2 (08:48→20:53)
[2017-03-07] MEDS: DILTIAZEM 30 MG TAB PO SCH ×2 (08:49→20:53)
[2017-03-07] MEDS: MULTIVITAMINS 1 EACH TAB PO SCH (08:49)
[2017-03-07] MEDS: SENNOSIDES/DOCUSATE SODIUM TAB PO SCH ×2 (08:49→20:53)
[2017-03-07] MEDS: DULoxetine 60 MG CAP PO SCH (08:49)
[2017-03-07] MEDS: METOLAZONE 2.5 MG TAB PO SCH (08:50)
[2017-03-07] MEDS: CHOLECALCIFEROL VIT D3 2,000 UNITS TAB/CAP PO SCH (08:50)
[2017-03-07] MEDS: hydrALAZINE 10 MG TAB PO SCH ×3 (08:50→20:53)
[2017-03-07] MEDS ORDERED: POTASSIUM CL 10 MEQ TAB PO ONE ×2 (11:02→19:36)
[2017-03-07] MEDS: ACETAMINOPHEN 325 MG TAB PO PRN (13:05)
--- NOTE | 2017-03-07 13:59 | HOSPPROG ---
Hospitalist Progress Note Assessment/Plan: # Acute on chronic systolic heart failure - CXR 02/23 -vascular congestion- 117 kg today currently on lasix drip -creatinine stable at 1.4 - oxygen saturations 93% on 2L - cont metolazone - cont lasix gtt - will discuss endpoint with cardiology # acute hypokalemia - 2/2 diuresis- 3.3 this am - cont protocol # Depression - this patient appears very depressed to me - she is expressing a disinterest in proceeding forward with life/care - will discuss antidepressant with the patient # Acute on chronic cellulitis of leg with wound infection, stasis dermatitis and stasis ulcer - PT/OT and wound care - agree no Abx at this time # Permanent atrial fib on anticoagulation - currently rate controlled Telemetry (persoanlly reviewed and interpreted) atrial fibrillation in the s - cont eliquis and cardizem # coronary artery disease - no active sx - cont statin and platelet inhibitor therapy # Acute encephalopathy multifactorial- Resolved # acute on chronic renal insufficiency - creatinine 1.9 -> 1.4 this am - continue careful diuresis as above # Severe acute on chronic deconditioning - PT/OT - discussed the importance of this at length - Will need SNF # Diabetes mellitus type 2 - BS 148-248 - cont hold Metformin - cont Lantus / lispro - titrate as needed # pulmonary hypertension # 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 Chronic, patient manages at home w/ norco PRN # diet - cardiac # proph - eliquis # dispo - > 2 MN as requiring IV lasix gtt and active monitoring of diuresis - will need SNF at discharge I have discussed the case with RN - pt with urinary incontinence - working hard to avoid skin breakdown Subjective: extremely sad and tearful Objective: Vital Signs Temp Pulse Resp BP Pulse Ox 36.8 C 84 16 139/77 H 94 03/07/17 11:08 03/07/17 11:08 03/07/17 11:08 03/07/17 11:08 03/07/17 11:08 Laboratory Results 03/04/17 03:55 03/07/17 03:35 03/06/17 03/07/17 03/08/17 05:59 05:59 05:59 Intake Total 1260 605 120 Balance 1260 605 120 PT 17.1 SEC (12.0-15.0) H 02/24/17 09:30 INR 1.40 (0.83-1.16) H 02/24/17 09:30 - Physical Exam Constitutional: obese Eyes: anicteric sclera Ears, Nose, Mouth, Throat: moist mucous membranes Cardiovascular: irregularly irregular Respiratory: no respiratory distress, no rales or rhonchi Gastrointestinal: normoactive bowel sounds, soft, non-tender abdomen Genitourinary: no bladder fullness Skin: warm Musculoskeletal: No asymmetric calves Neurologic: AAOx3 Psychiatric: depressed, flat affect Lymph, Heme, Immunologic: no cervical LAD ICD10 Worksheet Patient Problems: Problems Problem Status Onset Edema, peripheral Acute Lower extremity cellulitis Acute Acute respiratory failure with hypoxemia Acute Afib Acute Aortic stenosis Acute CAD (coronary artery disease) Acute CHF (congestive heart failure) Acute Chronic Disease Mgmt/Transitional Care Acute DM (diabetes mellitus), type 2 Acute Diabetic leg ulcer Acute H/O heart artery stent Acute Mitral stenosis Acute Obesity (BMI 30-39.9) Acute
[2017-03-07] MEDS ORDERED: CHLOROTHIAZIDE SODIUM 250 MG in STERILE WATER INJ 9 ML IVP ONE (14:11)
--- NOTE | 2017-03-07 14:18 | PDCARPN ---
Cardiology Progress Note Assessment/Plan: Congestive Heart Failure- combined systolic/diastolic with a contribution from valvular heart disease and chronic cor pulmonale. Continues to exhibit severe lower extremity edema. Renal function had limited aggressiveness of diuretic regimen. Creatinine has trended back in the right direction and is holding. Edema minimally improved. IV furosemide drip currently @ 15 mg/hr. Continue hydralazine for vasodilatation and improved renal blood flow; add nitrates if B/P allows. Continue daily metolazone. Will try a single dose of Diuril. Continue to follow electrolytes and renal function. Tracking her progress is hampered by lack of a Avelar catheter and incontinence issues negating accurate I/O; pt refused repeat attempt at Avelar placement; weights have not reflected any significant net diuresis. Review Dr. Rivera's progress note. With respect to our endpoint for her therapy , we may be getting close. Today, I had my first chance to speak with the patient's daughter. She says that her lower extremities are about as good as they get. The patient has difficulty if she has edema up to the thighs as it hampers her mobility. Daughter also mentioned potential increase in her level of support from her current assisted living arrangement. Valvular Heart Disease- characterized by aortic stenosis status post TAVR, mild- to-moderate mitral stenosis, and moderate to severe tricuspid regurgitation. Likely not a candidate for further procedural/surgical interventions. Atrial Fibrillation- has undergone cardioversion 3 times in the past year and has failed to maintain sinus rhythm each time despite escalating doses of amiodarone. Was essentially relegated to chronic atrial fibrillation [address] Cuevas stopped her amiodarone and started diltiazem. Continues on systemic anticoagulation for stroke prophylaxis. Cardiomyopathy- LVEF 45-50%. Coronary Artery Disease- h/o PCI of the RCA; diffuse mild to moderate irregularities of LAD and Circumflex on cath in 2015; no angina. Continue statin for secondary prevention. Pulmonary Hypertension- PA systolic pressure 60 to 65 mmHg. 03/07/17 14:18 Subjective: No complaints. Reviewed/Discussed With: family Objective: Vital Signs (8 Hrs) Temp Pulse Resp BP Pulse Ox 03/07/17 11:08 36.8 C 84 16 139/77 H 94 03/07/17 08:50 159/86 H 03/07/17 08:49 159/86 H 03/07/17 07:40 36.9 C 88 20 154/69 H 93 Intake/Output (24 Hrs) 03/06/17 03/07/17 03/08/17 05:59 05:59 05:59 Intake Total 1260 605 120 Balance 1260 605 120 Intake: Oral (ml) 1120 450 120 IV Infused (ml) 140 155 Furosemide 100 mg In D5w 140 155 100 ml @ 15 MG/HR 15 mls/ hr IV CONT ANAHI Rx#: [id number] Other: Weight 119.6 kg 117.2 kg Intake Quantity Yes Yes Sufficient Number of Voids Incontinence 2 3 Number of Stools Bedside Commode 0 Result Diagrams: 03/04/17 03:55 03/07/17 03:35 - Physical Exam Constitutional: obese Eyes: anicteric sclera Ears, Nose, Mouth, Throat: moist mucous membranes Cardiovascular: irregularly irregular Respiratory: clear to auscultate bilat Gastrointestinal: normoactive bowel sounds, no tenderness, no masses Skin: other (edema persists) Neurologic: AAOx3 ICD10 Worksheet Patient Problems: Problems Problem Status Onset Edema, peripheral Acute Lower extremity cellulitis Acute Acute respiratory failure with hypoxemia Acute Afib Acute Aortic stenosis Acute CAD (coronary artery disease) Acute CHF (congestive heart failure) Acute Chronic Disease Mgmt/Transitional Care Acute DM (diabetes mellitus), type 2 Acute Diabetic leg ulcer Acute H/O heart artery stent Acute Mitral stenosis Acute Obesity (BMI 30-39.9) Acute
[2017-03-07] MEDS: POTASSIUM CL 10 MEQ TAB PO SCH (15:38)
[2017-03-07 19:09] LABS: POTASSIUM 3.3 mEq/L (3.5-5.2)
[2017-03-07] MEDS: ATORVASTATIN CALCIUM 20 MG TAB PO SCH (20:53)
[2017-03-07] MEDS: INSULIN GLARGINE 100 UNITS/ML SYRINGE SC SCH (20:54)
[2017-03-08] MEDS: FUROSEMIDE 100 MG in D5W 100 ML IV SCH ×3 (02:43→21:51)
[2017-03-08] MEDS: LEVOTHYROXINE 100 MCG TAB PO SCH (04:49)
[2017-03-08 04:57] LABS: ANION GAP 12 mEq/L (8-16); CALCIUM 8.8 mg/dL (8.5-10.4); CARBON DIOXIDE 31 mEq/l (22-31); CHLORIDE 95 mEq/L (97-110); CREATININE 1.3 mg/dL (0.6-1.0); GLOMERULAR FILTRATION RATE 39; GLUCOSE 85 mg/dL (70-100); SODIUM 138 mEq/L (134-144)
[2017-03-08] MEDS: HYDROCODONE/APAP 5/325 TAB PO PRN ×2 (05:11→09:59)
[2017-03-08] MEDS ORDERED: POTASSIUM CL 20 MEQ TAB PO ONE (09:24)
[2017-03-08] MEDS: MULTIVITAMINS 1 EACH TAB PO SCH (09:45)
[2017-03-08] MEDS: APIXABAN 2.5 MG TAB PO SCH ×2 (09:45→20:23)
[2017-03-08] MEDS: SENNOSIDES/DOCUSATE SODIUM TAB PO SCH ×2 (09:45→20:23)
[2017-03-08] MEDS: hydrALAZINE 10 MG TAB PO SCH ×3 (09:45→21:51)
[2017-03-08] MEDS: DILTIAZEM 30 MG TAB PO SCH ×2 (09:45→20:23)
[2017-03-08] MEDS: DULoxetine 60 MG CAP PO SCH (09:45)
[2017-03-08] MEDS: METOLAZONE 2.5 MG TAB PO SCH (09:45)
[2017-03-08] MEDS: CHOLECALCIFEROL VIT D3 2,000 UNITS TAB/CAP PO SCH (09:45)
[2017-03-08] MEDS ORDERED: POTASSIUM CL 10 MEQ TAB PO ONE ×2 (12:21→20:27)
[2017-03-08] MEDS: INSULIN LISPRO 100 UNIT/ML SC SCH ×3 (12:27→18:01)
--- NOTE | 2017-03-08 13:46 | HOSPPROG ---
Hospitalist Progress Note Assessment/Plan: # Acute on chronic systolic heart failure - CXR 02/23 -vascular congestion- 118 kg today currently on lasix drip -creatinine stable at 1.3 - oxygen saturations 93% on 2L - cont metolazone - cont lasix gtt - currently at 15 - diuresis per cardiology # acute hypokalemia - 2/2 diuresis- 3.0 this am - cont protocol - giving extra dose potassium now 40 # Depression - this patient appears very depressed to me - she is expressing a disinterest in proceeding forward with life/care - pt amenable to starting low dose remeron - start 15mg PO QHS # Acute on chronic cellulitis of leg with wound infection, stasis dermatitis and stasis ulcer - PT/OT and wound care - agree no Abx at this time # Permanent atrial fib on anticoagulation - currently rate controlled Telemetry (personally reviewed and interpreted) atrial fibrillation in the s - cont eliquis - cont cardizem # coronary artery disease - no active sx - cont statin and platelet inhibitor therapy # Acute encephalopathy multifactorial- Resolved # acute on chronic renal insufficiency - creatinine 1.9 -> 1.3 this am - continue careful diuresis as above # Severe acute on chronic deconditioning - PT/OT - discussed the importance of this at length - Will need SNF # Diabetes mellitus type 2 - BS [id number] - cont hold Metformin - cont Lantus / lispro - titrate as needed # pulmonary hypertension # 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 Chronic, patient manages at home w/ norco PRN # diet - cardiac # proph - eliquis # dispo - > 2 MN as requiring IV lasix gtt and active monitoring of diuresis - will need SNF at discharge I have discussed the case with Cardiology- pt will certainly need higher level of care at dc than her assisted living Subjective: tired Objective: Vital Signs Temp Pulse Resp BP Pulse Ox 36.4 C 83 20 141/92 H 94 03/08/17 07:08 03/08/17 07:08 03/08/17 07:08 03/08/17 07:08 03/08/17 07:08 Laboratory Results 03/04/17 03:55 03/08/17 04:14 03/07/17 03/08/17 03/09/17 05:59 05:59 05:59 Intake Total 605 999 Output Total 1 Balance 605 998 PT 17.1 SEC (12.0-15.0) H 02/24/17 09:30 INR 1.40 (0.83-1.16) H 02/24/17 09:30 - Physical Exam Constitutional: obese Eyes: anicteric sclera Ears, Nose, Mouth, Throat: moist mucous membranes Cardiovascular: irregularly irregular Respiratory: no respiratory distress, reduced air movement Gastrointestinal: normoactive bowel sounds Genitourinary: no bladder fullness Skin: warm, normal color Musculoskeletal: No asymmetric calves Neurologic: No facial droop Psychiatric: depressed Lymph, Heme, Immunologic: no cervical LAD ICD10 Worksheet Patient Problems: Problems Problem Status Onset Edema, peripheral Acute Lower extremity cellulitis Acute Acute respiratory failure with hypoxemia Acute Afib Acute Aortic stenosis Acute CAD (coronary artery disease) Acute CHF (congestive heart failure) Acute Chronic Disease Mgmt/Transitional Care Acute DM (diabetes mellitus), type 2 Acute Diabetic leg ulcer Acute H/O heart artery stent Acute Mitral stenosis Acute Obesity (BMI 30-39.9) Acute
--- NOTE | 2017-03-08 15:40 | PDCARPN ---
Cardiology Progress Note Assessment/Plan: Congestive Heart Failure- combined systolic/diastolic with a contribution from valvular heart disease and chronic cor pulmonale. Continues to exhibit severe lower extremity edema. Renal function had limited aggressiveness of diuretic regimen. Creatinine is trending in the right direction despite steps made each day for the past several days to increase/advance her diuretic regimen. Edema minimally improved but noticeably so on the right. IV furosemide drip currently @ 15 mg/hr. Continue hydralazine for vasodilatation and improved renal blood flow. Increase metolazone to 5mg QD. Continue to follow electrolytes and renal function. Tracking her progress is hampered by lack of a Avelar catheter and incontinence issues negating accurate I/O; pt refused repeat attempt at Avelar placement; weights have not reflected any significant net diuresis. With respect to our endpoint for her therapy, we may be getting close. Yesterday , I had my first chance to speak with the patient's daughter. She says that her lower extremities are about as good as they get. The patient has difficulty if she has edema up to the thighs as it hampers her mobility. Daughter also mentioned potential increase in her level of support from her current assisted living arrangement. Valvular Heart Disease- characterized by aortic stenosis status post TAVR, mild- to-moderate mitral stenosis, and moderate to severe tricuspid regurgitation. Likely not a candidate for further procedural/surgical interventions. Atrial Fibrillation- has undergone cardioversion 3 times in the past year and has failed to maintain sinus rhythm each time despite escalating doses of amiodarone. Was essentially relegated to chronic atrial fibrillation [address] Cuevas stopped her amiodarone and started diltiazem. Continues on systemic anticoagulation for stroke prophylaxis. Cardiomyopathy- LVEF 45-50%. Coronary Artery Disease- h/o PCI of the RCA; diffuse mild to moderate irregularities of LAD and Circumflex on cath in 2014; no angina. Continue statin for secondary prevention. Pulmonary Hypertension- PA systolic pressure 60 to 65 mmHg. 03/08/17 15:35 Subjective: No complaints. Reviewed/Discussed With: family Objective: Intake/Output (24 Hrs) 03/07/17 03/08/17 03/09/17 05:59 05:59 05:59 Intake Total 605 999 Output Total 1 Balance 605 998 Intake: Oral (ml) 450 830 IV Intake (ml) 169 IV Infused (ml) 155 Furosemide 100 mg In D5w 155 100 ml @ 15 MG/HR 15 mls/ hr IV CONT ANAHI Rx#: [id number] Output: Urine/Stool Mix (ml) 1 Bedside Commode 1 Other: Weight 118.2 kg Intake Quantity Yes Yes Sufficient Number of Voids Bedside Commode 1 Incontinence 3 3 1 Number of Stools Bedside Commode 0 1 Result Diagrams: 03/04/17 03:55 03/08/17 04:14 - Physical Exam Constitutional: no apparent distress, obese Eyes: anicteric sclera Ears, Nose, Mouth, Throat: moist mucous membranes Cardiovascular: irregularly irregular Respiratory: clear to auscultate bilat Gastrointestinal: normoactive bowel sounds, no tenderness, no masses Skin: other (edema persists but is improved,especially on the right) Psychiatric: not anxious ICD10 Worksheet Patient Problems: Problems Problem Status Onset Edema, peripheral Acute Lower extremity cellulitis Acute Acute respiratory failure with hypoxemia Acute Afib Acute Aortic stenosis Acute CAD (coronary artery disease) Acute CHF (congestive heart failure) Acute Chronic Disease Mgmt/Transitional Care Acute DM (diabetes mellitus), type 2 Acute Diabetic leg ulcer Acute H/O heart artery stent Acute Mitral stenosis Acute Obesity (BMI 30-39.9) Acute
[2017-03-08] MEDS: POTASSIUM CL 10 MEQ TAB PO SCH (18:00)
[2017-03-08] MEDS ORDERED: METOLAZONE 2.5 MG TAB PO SCH (19:28)
[2017-03-08 20:03] LABS: POTASSIUM 3.4 mEq/L (3.5-5.2)
[2017-03-08] MEDS: ATORVASTATIN CALCIUM 20 MG TAB PO SCH (20:23)
[2017-03-08] MEDS: MIRTAZAPINE 15 MG TAB PO SCH (20:23)
[2017-03-08] MEDS: ACETAMINOPHEN 325 MG TAB PO PRN (20:24)
[2017-03-08] MEDS: INSULIN GLARGINE 100 UNITS/ML SYRINGE SC SCH (20:26)
[2017-03-09] MEDS: FUROSEMIDE 100 MG in D5W 100 ML IV SCH ×3 (05:52→20:37)
[2017-03-09] MEDS: LEVOTHYROXINE 100 MCG TAB PO SCH (05:53)
[2017-03-09] MEDS: DULoxetine 60 MG CAP PO SCH (09:01)
[2017-03-09] MEDS: APIXABAN 2.5 MG TAB PO SCH ×2 (09:01→20:38)
[2017-03-09] MEDS: hydrALAZINE 10 MG TAB PO SCH ×3 (09:01→21:02)
[2017-03-09] MEDS: SENNOSIDES/DOCUSATE SODIUM TAB PO SCH ×2 (09:01→20:37)
[2017-03-09] MEDS: MULTIVITAMINS 1 EACH TAB PO SCH (09:01)
[2017-03-09] MEDS: DILTIAZEM 30 MG TAB PO SCH (09:01)
[2017-03-09] MEDS: CHOLECALCIFEROL VIT D3 2,000 UNITS TAB/CAP PO SCH (09:02)
[2017-03-09] MEDS: INSULIN LISPRO 100 UNIT/ML SC SCH ×3 (09:09→18:23)
--- NOTE | 2017-03-09 10:43 | SOAPPROG ---
SOAP Progress Note Assessment/Plan: Assessment: 1. Valvular heart disease. She has a history of transcatheter aortic valve replacement. She does have residual moderate mitral stenosis and severe tricuspid insufficiency. 2. Severe pulmonary hypertension. Likely multifactorial related to her body habitus and valvular heart disease. This has resulted in chronic right-sided congestive heart failure. 3. Permanent atrial fibrillation. This, obviously, is contributing to her decompensation. Multiple attempts in the past at mandaeism of sinus rhythm have been successful however we have not been able to maintain sinus rhythm. She is currently anticoagulated with Eliquis in an off-label use given her history of labile INRs while on Coumadin. 4. Morbid obesity. 5. Chronic right greater than left-sided congestive heart failure. This is as a result of numbers 1 through 4 above. 6. Chronic renal insufficiency. 7. Severe debilitation. Overall, she appears to be doing poorly. Her overall condition has deteriorated substantially in the last 6 months. Her edema, based on my evaluation, his only mildly worse than it has been in the past. With the addition of Lasix drip and daily doses of metolazone this appears to have improved as has her renal function. In talking to her and her daughter, I think that we are getting to the point now where there is a strong consideration for palliative/hospice care. Plan: 1. I have elected to stop her diltiazem and instead try low-dose digoxin for rate control. This may help improve her edema. 2. I have increased her metolazone dosing. 3. I have convinced her to allow us to perform daily labs to follow her renal function and potassium. 4. I would like to have a conversation with her daughter and with gene within the next several days regarding her overall goals of therapy. 03/09/17 10:45 Subjective: The patient was seen and examined. Her chart was reviewed. The case was discussed with Dr. Dillan Brannon. She is well known to me from my outpatient clinic. She is approaching the 14th day of her hospitalization for right greater than left-sided heart failure and significant weakness. She has a history of valvular heart disease characterized by previous transcatheter aortic valve replacement. She has residual moderate mitral stenosis and severe tricuspid insufficiency in the setting of severe pulmonary hypertension. We have had difficulties over the years controlling her lower extremity edema. She is currently on intravenous diuretic therapy with a continuous Lasix infusion and receiving supplemental doses of metolazone. This has resulted in some improvement however the degree of improvement of difficult to ascertain in the absence of our ability to measure her intake and output. Attempts at placing a Avelar catheter have been unsuccessful and she is incontinent of urine. Additionally, the daily weights by the bed scales are suspect. In talking to her she has no specific complaints. Specifically, she denies chest discomfort and dyspnea. She is extraordinarily weak and is essentially requiring full assistance to get in and out of bed and even stand up. Apparently, it has been several days or possibly greater than a week since she is actually walked with her walker. Last night, she expressed wishes to discontinue this level of care. She noted that she is tired and in a great deal of pain. I did visit with her this morning. I also had a lengthy conversation with her daughter. They expressed that they may be getting to the point where palliative care/hospice may be entertained. Objective: Vital Signs Temp Pulse Resp BP Pulse Ox 36.7 C 82 20 142/85 H 94 03/09/17 07:26 03/09/17 09:01 03/09/17 07:26 03/09/17 09:01 03/09/17 07:26 Laboratory Results 03/04/17 03:55 03/08/17 19:40 03/08/17 03/09/17 03/10/17 05:59 05:59 05:59 Intake Total 999 1522 Output Total 1 200 Balance 998 1322 PT 17.1 SEC (12.0-15.0) H 02/24/17 09:30 INR 1.40 (0.83-1.16) H 02/24/17 09:30 Physical Exam - Physical Exam General Appearance: WD/WN, no apparent distress, obese Neck: non-tender, full range of motion Respiratory: lungs clear (Anterior exam) Cardiac/Chest: edema (Severe by pedal edema extending up to the upper garcia), systolic murmur (1/6), irregularly irregular Peripheral Pulses: 2+: carotid (R), carotid (L) Abdomen: non-tender Pelvic Exam: deferred Rectal: deferred Neuro/Psych: alert, oriented x 3 ICD10 Worksheet Patient Problems: Problems Problem Status Onset Edema, peripheral Acute Lower extremity cellulitis Acute Acute respiratory failure with hypoxemia Acute Afib Acute Aortic stenosis Acute CAD (coronary artery disease) Acute CHF (congestive heart failure) Acute Chronic Disease Mgmt/Transitional Care Acute DM (diabetes mellitus), type 2 Acute Diabetic leg ulcer Acute H/O heart artery stent Acute Mitral stenosis Acute Obesity (BMI 30-39.9) Acute
[2017-03-09] MEDS: DIGOXIN 125 MCG TAB PO SCH (12:52)
--- NOTE | 2017-03-09 15:28 | HOSPPROG ---
Hospitalist Progress Note Assessment/Plan: # Acute on chronic systolic heart failure - CXR 02/23 -vascular congestion- 118 kg today currently on lasix drip -creatinine stable at 1.3 - oxygen saturations 93% on 2L - digoxin started today - cont increased metolazone 5 BID - cont lasix gtt - currently at 15 - Dr Cuevas (primary [employer] information [employer]) rounding will further discuss [facility]pc goals of care # acute hypokalemia - 2/2 diuresis- 3.4 this am - cont protocol - received extra dose potassium yesterday # Depression - this patient appears very depressed to me - she is expressing a disinterest in proceeding forward with life/care - pt amenable to starting low dose remeron - cont 15mg PO QHS # Acute on chronic cellulitis of leg with wound infection, stasis dermatitis and stasis ulcer - PT/OT and wound care - agree no Abx at this time # Permanent atrial fib on anticoagulation - currently rate controlled Telemetry (personally reviewed and interpreted) atrial fibrillation in the s - cont eliquis - cont cardizem - cont digoxin # coronary artery disease - no active sx - cont statin and platelet inhibitor therapy # Acute encephalopathy multifactorial- Resolved # acute on chronic renal insufficiency - creatinine 1.9 -> 1.3 this am - continue careful diuresis as above # Severe acute on chronic deconditioning - PT/OT - discussed the importance of this at length - Will need SNF # Diabetes mellitus type 2 - BS 116-290 - cont hold Metformin - cont Lantus / lispro - titrate as needed # pulmonary hypertension # 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 Chronic, patient manages at home w/ norco PRN # diet - cardiac # proph - eliquis # dispo - > 2 MN as requiring IV lasix gtt and active monitoring of diuresis - will need SNF dc at her current facility potentially with hospice I have discussed the case with Cardiology-pt appears close to her baseline - continue lasix gtt overnight Subjective: slept last night Objective: Vital Signs Temp Pulse Resp BP Pulse Ox 36.9 C 102 H 25 H 110/92 H 93 03/09/17 11:17 03/09/17 12:52 03/09/17 11:17 03/09/17 11:17 03/09/17 11:17 Laboratory Results 03/04/17 03:55 03/08/17 19:40 03/08/17 03/09/17 03/10/17 05:59 05:59 05:59 Intake Total 999 1522 Output Total 1 200 Balance 998 1322 PT 17.1 SEC (12.0-15.0) H 02/24/17 09:30 INR 1.40 (0.83-1.16) H 02/24/17 09:30 - Physical Exam Constitutional: chronically ill appearing, obese Eyes: anicteric sclera Ears, Nose, Mouth, Throat: moist mucous membranes Cardiovascular: irregularly irregular, edema, No tachycardia Respiratory: no respiratory distress, inspiratory crackles Gastrointestinal: normoactive bowel sounds Genitourinary: no bladder fullness Skin: warm, normal color Musculoskeletal: No asymmetric calves Neurologic: AAOx3 Psychiatric: depressed, flat affect Lymph, Heme, Immunologic: no cervical LAD ICD10 Worksheet Patient Problems: Problems Problem Status Onset Edema, peripheral Acute Lower extremity cellulitis Acute Acute respiratory failure with hypoxemia Acute Afib Acute Aortic stenosis Acute CAD (coronary artery disease) Acute CHF (congestive heart failure) Acute Chronic Disease Mgmt/Transitional Care Acute DM (diabetes mellitus), type 2 Acute Diabetic leg ulcer Acute H/O heart artery stent Acute Mitral stenosis Acute Obesity (BMI 30-39.9) Acute
[2017-03-09 17:06] LABS: HEMOGLOBIN 10.3 g/dL (12.6-16.3); MEAN CELL HEMOGLOBIN 26.8 pg (27.9-34.1); MEAN CELL HEMOGLOBIN CONCENTR. 31.2 g/dL (32.4-36.7); MEAN CELL VOLUME 85.7 fL (81.5-99.8); RED BLOOD CELL COUNT 3.85 10^6/uL (4.18-5.33); RED CELL DISTRIBUTION WIDTH 19.4 % (11.5-15.2)
[2017-03-09 17:27] LABS: ANION GAP 13 mEq/L (8-16); CALCIUM 8.9 mg/dL (8.5-10.4); CARBON DIOXIDE 33 mEq/l (22-31); CHLORIDE 93 mEq/L (97-110); CREATININE 1.3 mg/dL (0.6-1.0); GLOMERULAR FILTRATION RATE 39; GLUCOSE 137 mg/dL (70-100); POTASSIUM 3.2 mEq/L (3.5-5.2); SODIUM 139 mEq/L (134-144)
[2017-03-09] MEDS ORDERED: POTASSIUM CL 10 MEQ TAB PO ONE (18:13)
[2017-03-09] MEDS: POTASSIUM CL 10 MEQ TAB PO SCH (18:24)
[2017-03-09] MEDS: ATORVASTATIN CALCIUM 20 MG TAB PO SCH (20:37)
[2017-03-09] MEDS: HYDROCODONE/APAP 5/325 TAB PO PRN (20:38)
[2017-03-09] MEDS: MIRTAZAPINE 15 MG TAB PO SCH (20:38)
[2017-03-09] MEDS: METOLAZONE 2.5 MG TAB PO SCH (20:38)
[2017-03-09] MEDS: INSULIN GLARGINE 100 UNITS/ML SYRINGE SC SCH (20:52)
[2017-03-10] MEDS: FUROSEMIDE 100 MG in D5W 100 ML IV SCH ×2 (02:22→09:07)
[2017-03-10 05:10] LABS: HEMATOCRIT 32.1 % (38.0-47.0); HEMOGLOBIN 9.9 g/dL (12.6-16.3); MEAN CELL HEMOGLOBIN 26.7 pg (27.9-34.1); MEAN CELL HEMOGLOBIN CONCENTR. 30.8 g/dL (32.4-36.7); MEAN CELL VOLUME 86.5 fL (81.5-99.8); RED BLOOD CELL COUNT 3.71 10^6/uL (4.18-5.33); RED CELL DISTRIBUTION WIDTH 19.5 % (11.5-15.2)
[2017-03-10 05:25] LABS: ANION GAP 12 mEq/L (8-16); CALCIUM 8.9 mg/dL (8.5-10.4); CARBON DIOXIDE 32 mEq/l (22-31); CHLORIDE 96 mEq/L (97-110); CREATININE 1.5 mg/dL (0.6-1.0); GLOMERULAR FILTRATION RATE 33; GLUCOSE 107 mg/dL (70-100); POTASSIUM 3.2 mEq/L (3.5-5.2); SODIUM 140 mEq/L (134-144)
[2017-03-10] MEDS: LEVOTHYROXINE 100 MCG TAB PO SCH (05:45)
[2017-03-10] MEDS: APIXABAN 2.5 MG TAB PO SCH ×2 (09:09→20:04)
[2017-03-10] MEDS: METOLAZONE 2.5 MG TAB PO SCH (09:09)
[2017-03-10] MEDS: DULoxetine 60 MG CAP PO SCH (09:09)
[2017-03-10] MEDS: DIGOXIN 125 MCG TAB PO SCH (09:09)
[2017-03-10] MEDS: CHOLECALCIFEROL VIT D3 2,000 UNITS TAB/CAP PO SCH (09:09)
[2017-03-10] MEDS: hydrALAZINE 10 MG TAB PO SCH ×3 (09:09→22:34)
[2017-03-10] MEDS: MULTIVITAMINS 1 EACH TAB PO SCH (09:09)
[2017-03-10] MEDS ORDERED: POTASSIUM CL 10 MEQ TAB PO ONE (09:22)
[2017-03-10] MEDS: INSULIN LISPRO 100 UNIT/ML SC SCH ×3 (09:33→17:15)
[2017-03-10] MEDS ORDERED: POTASSIUM CL 20 MEQ TAB PO ONE (09:35)
[2017-03-10] MEDS: HYDROCODONE/APAP 5/325 TAB PO PRN (10:40)
--- NOTE | 2017-03-10 12:18 | HOSPPROG ---
Hospitalist Progress Note Assessment/Plan: # Acute on chronic systolic heart failure - CXR 02/23 -vascular congestion- 118 kg today currently on lasix drip -creatinine bumped 1.5 this am - lung exam and edema appear unchanged oxygen saturations 93% on 2L - will discuss switching to oral lasix with Dr. Cuevas today - digoxin started today - cont increased metolazone 5 BID # acute hypokalemia - 2/2 diuresis- 3.4 this am - cont protocol - received extra dose potassium today # Depression - this patient appears very depressed to me - she is expressing a disinterest in proceeding forward with life/care - pt amenable to starting low dose remeron - cont 15mg PO QHS # Acute on chronic cellulitis of leg with wound infection, stasis dermatitis and stasis ulcer - PT/OT and wound care - agree no Abx at this time # Permanent atrial fib on anticoagulation - currently rate controlled Telemetry (personally reviewed and interpreted) atrial fibrillation in the s - cont eliquis - cont cardizem - cont digoxin # coronary artery disease - no active sx - cont statin and platelet inhibitor therapy # Acute encephalopathy multifactorial- Resolved # acute on chronic renal insufficiency - creatinine 1.9 -> 1.3 this am - continue careful diuresis as above # Severe acute on chronic deconditioning - PT/OT - discussed the importance of this at length - Will need SNF # Diabetes mellitus type 2 - BS [id number] - cont hold Metformin - cont Lantus / lispro - titrate as needed # pulmonary hypertension # 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 Chronic, patient manages at home w/ norco PRN # diet - cardiac # proph - eliquis # dispo - > 2 MN as requiring IV lasix gtt and active monitoring of diuresis - will need SNF dc at her current facility potentially with hospice I have discussed the case with Cardiology-will transition off Lasix drip today Subjective: feels unchanged Objective: Vital Signs Temp Pulse Resp BP Pulse Ox 36.8 C 79 17 140/90 H 98 03/10/17 07:32 03/10/17 07:32 03/10/17 07:32 03/10/17 07:32 03/10/17 07:32 Laboratory Results 03/10/17 04:37 03/10/17 04:37 03/09/17 03/10/17 03/11/17 05:59 05:59 05:59 Intake Total 1522 980 240 Output Total 200 Balance 1322 980 240 PT 17.1 SEC (12.0-15.0) H 02/24/17 09:30 INR 1.40 (0.83-1.16) H 02/24/17 09:30 - Physical Exam Constitutional: chronically ill appearing, obese Eyes: anicteric sclera Ears, Nose, Mouth, Throat: moist mucous membranes Cardiovascular: irregularly irregular Respiratory: no respiratory distress Gastrointestinal: normoactive bowel sounds Genitourinary: no bladder fullness Skin: warm, normal color Musculoskeletal: No asymmetric calves Neurologic: AAOx3 Psychiatric: depressed, flat affect Lymph, Heme, Immunologic: no cervical LAD ICD10 Worksheet Patient Problems: Problems Problem Status Onset Edema, peripheral Acute Lower extremity cellulitis Acute Acute respiratory failure with hypoxemia Acute Afib Acute Aortic stenosis Acute CAD (coronary artery disease) Acute CHF (congestive heart failure) Acute Chronic Disease Mgmt/Transitional Care Acute DM (diabetes mellitus), type 2 Acute Diabetic leg ulcer Acute H/O heart artery stent Acute Mitral stenosis Acute Obesity (BMI 30-39.9) Acute
[2017-03-10] MEDS ORDERED: FUROSEMIDE 20 MG TAB PO SCH (13:00)
[2017-03-10] MEDS: POTASSIUM CL 20 MEQ TAB PO SCH ×2 (13:51→20:03)
--- NOTE | 2017-03-10 14:28 | SOAPPROG ---
[facility] Progress Note Assessment/Plan: Assessment: 1. Valvular heart disease. She has a history of transcatheter aortic valve replacement. She does have residual moderate mitral stenosis and severe tricuspid insufficiency. 2. Severe pulmonary hypertension. Likely multifactorial related to her body habitus and valvular heart disease. This has resulted in chronic right-sided congestive heart failure. 3. Permanent atrial fibrillation. This, obviously, is contributing to her decompensation. Multiple attempts in the past at taoism of sinus rhythm have been successful however we have not been able to maintain sinus rhythm. She is currently anticoagulated with Eliquis in an off-label use given her history of labile INRs while on Coumadin. 4. Morbid obesity. 5. Chronic right greater than left-sided congestive heart failure. This is as a result of numbers 1 through 4 above. 6. Chronic renal insufficiency. 7. Severe debilitation. Today, she appears to be at her baseline based on my physical exam. Her creatinine has increased slightly following double dose of metolazone yesterday. I think we are at a point now when we can consider is beginning to think about transitioning her out of the hospital. I would like to get her off her IV medications and switch her to p. o. Plan: 1. I will stop her IV Lasix and instead use torsemide at a dose of 40 mg twice daily. 2. She has been placed on Klor-Con 40 mEq twice daily. 3. Will plan to check her chemistry panel this afternoon and again in the morning. 4. Will continue digoxin for rate control. 5. I would like to have a family meeting with her daughter tomorrow regarding goals surrounding her care going forward. 03/10/17 14:33 Subjective: Today she states that she has been feeling better. She is in better spirits than managed to sleep well last night. She denies chest discomfort and chest heaviness. She notes no palpitations. She just finished breakfast. She notes that she is anxious to get out of the hospital. Objective: Vital Signs Temp Pulse Resp BP Pulse Ox 37.1 C 96 16 127/78 H 98 03/10/17 12:00 03/10/17 12:00 03/10/17 12:00 03/10/17 12:00 03/10/17 12:00 Laboratory Results 03/10/17 04:37 03/10/17 04:37 03/09/17 03/10/17 03/11/17 05:59 05:59 05:59 Intake Total 1522 980 240 Output Total 200 Balance 1322 980 240 PT 17.1 SEC (12.0-15.0) H 02/24/17 09:30 INR 1.40 (0.83-1.16) H 02/24/17 09:30 Physical Exam - Physical Exam General Appearance: WD/WN, obese Neck: non-tender Respiratory: lungs clear, No crackles, No rales, No rhonchi Cardiac/Chest: edema (1 quarter-inch pitting edema bilaterally just above the ankle), irregularly irregular, No gallop, No JVD Peripheral Pulses: 2+: carotid (R), carotid (L) Abdomen: non-tender Rectal: deferred Skin: normal color Neuro/Psych: alert, oriented x 3 ICD10 Worksheet Patient Problems: Problems Problem Status Onset Edema, peripheral Acute Lower extremity cellulitis Acute Acute respiratory failure with hypoxemia Acute Afib Acute Aortic stenosis Acute CAD (coronary artery disease) Acute CHF (congestive heart failure) Acute Chronic Disease Mgmt/Transitional Care Acute DM (diabetes mellitus), type 2 Acute Diabetic leg ulcer Acute H/O heart artery stent Acute Mitral stenosis Acute Obesity (BMI 30-39.9) Acute
[2017-03-10] MEDS ORDERED: FUROSEMIDE 80 MG TAB PO SCH ×2 (16:00)
[2017-03-10] MEDS: SENNOSIDES/DOCUSATE SODIUM TAB PO SCH ×2 (17:11→20:04)
[2017-03-10 19:09] LABS: POTASSIUM 4.1 mEq/L (3.5-5.2)
[2017-03-10] MEDS: MIRTAZAPINE 15 MG TAB PO SCH (20:02)
[2017-03-10] MEDS: ATORVASTATIN CALCIUM 20 MG TAB PO SCH (20:02)
[2017-03-10] MEDS: TORSEMIDE 20 MG TAB PO SCH (20:02)
[2017-03-10] MEDS: INSULIN GLARGINE 100 UNITS/ML SYRINGE SC SCH (22:33)
[2017-03-11] MEDS: LEVOTHYROXINE 100 MCG TAB PO SCH (04:56)
[2017-03-11 05:23] LABS: ANION GAP 11 mEq/L (8-16); CARBON DIOXIDE 30 mEq/l (22-31); CHLORIDE 96 mEq/L (97-110); CREATININE 1.4 mg/dL (0.6-1.0); GLOMERULAR FILTRATION RATE 36; GLUCOSE 217 mg/dL (70-100); POTASSIUM 4.5 mEq/L (3.5-5.2); SODIUM 137 mEq/L (134-144)
[2017-03-11] MEDS: CHOLECALCIFEROL VIT D3 2,000 UNITS TAB/CAP PO SCH (09:26)
[2017-03-11] MEDS: DIGOXIN 125 MCG TAB PO SCH (09:26)
[2017-03-11] MEDS: INSULIN LISPRO 100 UNIT/ML SC SCH ×3 (09:26→17:24)
[2017-03-11] MEDS: DULoxetine 60 MG CAP PO SCH (09:26)
[2017-03-11] MEDS: APIXABAN 2.5 MG TAB PO SCH ×2 (09:26→20:31)
[2017-03-11] MEDS: METOLAZONE 2.5 MG TAB PO SCH (09:27)
[2017-03-11] MEDS: SENNOSIDES/DOCUSATE SODIUM TAB PO SCH ×2 (09:27→20:31)
[2017-03-11] MEDS: POTASSIUM CL 20 MEQ TAB PO SCH (09:27)
[2017-03-11] MEDS: hydrALAZINE 10 MG TAB PO SCH ×3 (09:27→20:31)
[2017-03-11] MEDS: MULTIVITAMINS 1 EACH TAB PO SCH (09:28)
[2017-03-11] MEDS: TORSEMIDE 20 MG TAB PO SCH ×2 (09:28→17:25)
[2017-03-11] MEDS: HYDROCODONE/APAP 5/325 TAB PO PRN (11:01)
--- NOTE | 2017-03-11 17:32 | SOAPPROG ---
[facility] Progress Note Assessment/Plan: Assessment: 1. Valvular heart disease. She has a history of transcatheter aortic valve replacement. She does have residual moderate mitral stenosis and severe tricuspid insufficiency. 2. Severe pulmonary hypertension. Likely multifactorial related to her body habitus and valvular heart disease. This has resulted in chronic right-sided congestive heart failure. 3. Permanent atrial fibrillation. This, obviously, is contributing to her decompensation. Multiple attempts in the past at [facility] of sinus rhythm have been successful however we have not been able to maintain sinus rhythm. She is currently anticoagulated with Eliquis in an off-label use given her history of labile INRs while on Coumadin. 4. Morbid obesity. 5. Chronic right greater than left-sided congestive heart failure. This is as a result of numbers 1 through 4 above. 6. Chronic renal insufficiency. 7. Severe debilitation. She appears improved today with less lower extremity edema. She is down about 2 kg from yesterday. Plan: 1. I have decreased her potassium supplementation. 2. I have discussed with Dr. Taylor the possibility of obtaining a hospice/ palliative care consult. 3. Her care team is attempting to arrange a rehabilitation center that she can be transferred to. 4. We will follow along. 03/11/17 17:29 Subjective: She has done well overnight. She feels a little bit better today with decreased edema and an improved overall sense of well-being and strength. I had a 45 minutes meeting with her and her daughter today Discussing goals of care. We touched on hospice/palliative care which she is open to at the present time. Objective: Vital Signs Temp Pulse Resp BP Pulse Ox 36.8 C 79 20 122/79 H 94 03/11/17 16:00 03/11/17 16:00 03/11/17 16:00 03/11/17 16:00 03/11/17 16:00 Laboratory Results 03/10/17 04:37 03/11/17 04:49 03/10/17 03/11/17 03/12/17 05:59 05:59 05:59 Intake Total 980 880 Balance 980 880 PT 17.1 SEC (12.0-15.0) H 02/24/17 09:30 INR 1.40 (0.83-1.16) H 02/24/17 09:30 ICD10 Worksheet Patient Problems: Problems Problem Status Onset Edema, peripheral Acute Lower extremity cellulitis Acute Acute respiratory failure with hypoxemia Acute Afib Acute Aortic stenosis Acute CAD (coronary artery disease) Acute CHF (congestive heart failure) Acute Chronic Disease Mgmt/Transitional Care Acute DM (diabetes mellitus), type 2 Acute Diabetic leg ulcer Acute H/O heart artery stent Acute Mitral stenosis Acute Obesity (BMI 30-39.9) Acute
--- NOTE | 2017-03-11 18:19 | HOSPPROG ---
Hospitalist Progress Note Assessment/Plan: # Acute on chronic systolic heart failure - CXR 02/23 -vascular congestion- weight currently at 111 from a high of 119 cardiology had long discussion with patient and daughter who are requesting palliative/hospice consult currently on bid torsemide and metolazone # acute hypokalemia - 2/2 diuresis - cont protocol # Depression - continues to have very flat affect, minimally interactive, as above plan is for hospice # Acute on chronic cellulitis of leg with wound infection, stasis dermatitis and stasis ulcer - PT/OT and wound care # Permanent atrial fib on anticoagulation - currently rate controlled Telemetry (personally reviewed and interpreted) atrial fibrillation in the s - cont eliquis and digoxin # coronary artery disease - no active sx - cont statin and platelet inhibitor therapy # Acute encephalopathy multifactorial- has appeared intermittently more somnolent and less interactive, likely in part due to depression but also suspect hypoactive delerium, continue to monitor # acute on chronic renal insufficiency - creatinine 1.9 -> 1.4 which is near baseline - continue careful diuresis as above # Severe acute on chronic deconditioning - PT/OT --intermittently not compliant - Will need SNF # Diabetes mellitus type 2 - BS [phone] - cont hold Metformin given fluctuating renal function - cont Lantus / lispro - titrate as needed # pulmonary hypertension # 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 Chronic, patient manages at home w/ norco PRN # diet - cardiac # proph - eliquis # dispo - > is wanting hospice/palliative consult and will try to arrange Subjective: no significant overnight events, patient has no complaints but is quite somnolent and minimally responsive Objective: Vital Signs Temp Pulse Resp BP Pulse Ox 36.8 C 79 20 122/79 H 94 03/11/17 16:00 03/11/17 16:00 03/11/17 16:00 03/11/17 16:00 03/11/17 16:00 Laboratory Results 03/10/17 04:37 03/11/17 04:49 03/10/17 03/11/17 03/12/17 05:59 05:59 05:59 Intake Total 980 880 400 Balance 980 880 400 PT 17.1 SEC (12.0-15.0) H 02/24/17 09:30 INR 1.40 (0.83-1.16) H 02/24/17 09:30 chronically ill appearing anicteric op clear irreg irreg no mrg cta with bibasilar crackles soft nt nd 2+ pitting edema ble warm dry hyperpigmented lower extremities ICD10 Worksheet Patient Problems: Problems Problem Status Onset Acute respiratory failure with hypoxemia Acute CHF (congestive heart failure) Acute Afib Acute H/O heart artery stent Acute CAD (coronary artery disease) Acute Aortic stenosis Acute Mitral stenosis Acute DM (diabetes mellitus), type 2 Acute Obesity (BMI 30-39.9) Acute Chronic Disease Mgmt/Transitional Care Acute Diabetic leg ulcer Acute Lower extremity cellulitis Acute Edema, peripheral Acute
[2017-03-11] MEDS: ATORVASTATIN CALCIUM 20 MG TAB PO SCH (20:31)
[2017-03-11] MEDS: MIRTAZAPINE 15 MG TAB PO SCH (20:31)
[2017-03-11] MEDS: INSULIN GLARGINE 100 UNITS/ML SYRINGE SC SCH (20:32)
[2017-03-12] MEDS: HYDROCODONE/APAP 5/325 TAB PO PRN ×2 (01:57→10:18)
[2017-03-12] MEDS: LEVOTHYROXINE 100 MCG TAB PO SCH (05:54)
[2017-03-12] MEDS ORDERED: POTASSIUM CL 20 MEQ TAB PO SCH (09:00)
[2017-03-12 09:03] VITALS: BP 118/80; PULSE 83; RESP 22; TEMP 98.7
[2017-03-12 10:06] LABS: ANION GAP 14 mEq/L (8-16); CALCIUM 9.1 mg/dL (8.5-10.4); CARBON DIOXIDE 29 mEq/l (22-31); CHLORIDE 96 mEq/L (97-110); CREATININE 1.5 mg/dL (0.6-1.0); GLOMERULAR FILTRATION RATE 33; GLUCOSE 225 mg/dL (70-100); SODIUM 139 mEq/L (134-144)
[2017-03-12] MEDS: INSULIN LISPRO 100 UNIT/ML SC SCH ×2 (10:18→12:27)
[2017-03-12] MEDS: MULTIVITAMINS 1 EACH TAB PO SCH (11:35)
[2017-03-12] MEDS: DULoxetine 60 MG CAP PO SCH (11:35)
[2017-03-12] MEDS: APIXABAN 2.5 MG TAB PO SCH (11:35)
[2017-03-12] MEDS: METOLAZONE 2.5 MG TAB PO SCH (11:35)
[2017-03-12] MEDS: CHOLECALCIFEROL VIT D3 2,000 UNITS TAB/CAP PO SCH (11:35)
[2017-03-12] MEDS: TORSEMIDE 20 MG TAB PO SCH ×2 (11:35→13:32)
[2017-03-12] MEDS: hydrALAZINE 10 MG TAB PO SCH ×2 (11:36→13:38)
[2017-03-12] MEDS: SENNOSIDES/DOCUSATE SODIUM TAB PO SCH (11:36)
[2017-03-12 11:38] VITALS: O2SAT 83
[2017-03-12] MEDS: DIGOXIN 125 MCG TAB PO SCH (12:06)
--- NOTE | 2017-03-12 12:10 | PDIAF ---
- Diagnosis Code Status: Do Not Resuscitate - Medication Management Discharge Medications: Medications to Continue on Transfer Atorvastatin Calcium [Lipitor 20 mg (*)] 20 mg PO HS 04/11/15 [Last Taken ] Cyanocobalamin [Vitamin B12 1000MCG/ML (*)] 1,000 mcg IM Q30D 04/11/15 [Last Taken 01/28/17] Levothyroxine [Synthroid 100 mcg (*)] 100 mcg PO DAILY06 04/11/15 [Last Taken ] Acetaminophen [Tylenol 325mg (*)] 325 - 650 mg PO Q4-6PRN PRN 03/05/16 [Last Taken 04/08/16] Herbals/Supplements -Info Only 1 ea PO DAILY 03/05/16 [Last Taken 12/09/16] Insulin Aspart [Novolog Flexpen] 6 unit SQ DAILY@18 03/05/16 [Last Taken ] Insulin Aspart [Novolog Flexpen] 7 unit SQ DAILY@03/05/16 [Last Taken ] Insulin Aspart [Novolog Flexpen] 12 unit SQ DAILY@03/05/16 [Last Taken ] Multivitamins [Multivitamin (*)] 1 each PO DAILY 03/05/16 [Last Taken 02/23/17] Insulin Glargine [Lantus 100 UNITS/ML (*)] 30 units SC HS 05/26/16 [Last Taken 02/23/17] Polyethylene Glycol 3350 [Miralax 17 gm (*)] 17 gm PO DAILY PRN #0 pkt 05/29/16 [Last Taken 02/23/17] Apixaban [Eliquis] 2.5 mg PO BID 12/12/16 [Last Taken 02/23/17 21:00] Cholecalciferol Vit D3 [Vitamin D3 2000 units tab (OTC)] 2,000 units PO DAILY [Last Taken 02/23/17] Furosemide [Lasix 80 MG (*)] 80 mg PO BID@12/12/16 [Last Taken 02/23/17 13 :00] Promethazine HCl [Phenergan 25mg (*)] 25 mg PO Q8HRS PRN 12/12/16 [Last Taken ] DULoxetine [Cymbalta 60 MG (*)] 60 mg PO DAILY 02/24/17 [Last Taken 02/23/17] Diltiazem [Cardizem Ir Q6hr] 30 mg PO BID 02/24/17 [Last Taken 02/23/17 21:00] Docusate Sodium [Colace 100 MG (*)] 100 mg PO BID PRN 02/24/17 [Last Taken 02/23] Hydrocodone/Acetaminophen [Evant 5/325 (*)] 1 each PO Q4-6PRN PRN 02/24/17 [ Last Taken 02/24/17] Digoxin [Lanoxin 125 mcg (RX)] 125 mcg PO DAILY AT 10AM #30 tab 03/12/17 [Last Taken Unknown] Metolazone [Zaroxolyn] 5 mg PO DAILY #30 tab 03/12/17 [Last Taken Unknown] Potassium Cl [Klor-Con 20 meq (*)] 40 meq PO DAILY #60 tab 03/12/17 [Last Taken Unknown] Discharge Medications: Refer to the Discharge Home Medication list for PRN reason. - Orders Services needed: Registered Nurse, Physical Therapy, Occupational Therapy Oxygen: 2 liters/minute continuous Weigh Patient: weekly Avelar: No - Labs/Radiology BMP Date: 03/19/17 CBC Date: 03/19/17 - Follow Up Care Current Providers and Referrals: Patient,NotPresent [Unknown] - As per Instructions
--- NOTE | 2017-03-12 13:10 | GDS ---
[f rep st] DISCHARGE SUMMARY NEW AND ACUTE DIAGNOSES ON THIS ADMISSION: 1. Acute on chronic systolic heart failure. 2. Acute on chronic cellulitis of the legs with stasis dermatitis and stasis ulceration. 3. Coronary artery disease. 4. Permanent atrial fibrillation on Eliquis anticoagulation and digoxin for rate control. 5. Acute encephalopathy, multifactorial. 6. Acute on chronic renal insufficiency with a creatinine of 1.4, which is near her baseline. 7. Severe acute on chronic deconditioning. 8. Diabetes mellitus type 2. 9. Do not resuscitate status. Palliative care and hospice consultation as an outpatient. 10. Chronic respiratory failure on 2 L nasal prong oxygen. CHRONIC DIAGNOSES: 1. Depression. 2. Chronic peripheral neuropathy with continuous opioid dependence and chronic anticoagulation on E liquis. CONSULTATIONS: Infectious Disease, Cardiology. PROCEDURES: Wound care to the lower extremities. HOSPITAL COURSE: An 81-year-old female, presented with increasing weakness, confusion, incontinence , and was found to be in acute systolic congestive heart failure. Additionally, she was noted to sandoval ve an acute cellulitis of the lower extremities and was placed on vancomycin initially and transitio jorge luis off this medication with resolution of her cellulitis with wound care and elevation of the legs along with treatment of her edema. Her diabetes mellitus was treated in its usual fashion. Diuresi s was accomplished with IV Lasix and then transitioned to metolazone and oral Lasix. Diuresis resul kevin in a weight loss of approximately 7 kg. Her discharge weight was 111.9 kg. Mental status progr essively improved with the treatment of her multiple medical problems. Consultation was requested with Palliative Care and Hospice by the daughter which will be performed, as an outpatient. DISCHARGE MEDICATIONS: Her usual medications as follows: 1. Klor-Con 40 mEq daily. 2. MiraLAX 17 g daily. 3. Eliquis 2.5 mg b.i.d. 4. Lipitor 20 mEq h.s. 5. Vitamin D3 2000 International Units daily. 6. Vitamin B12 1000 mcg IM every 30 days. 7. Digoxin 120 mcg p.o. daily. 8. Colace 100 mg b.i.d. 9. Cymbalta 60 mg daily. 10. Orland 5/325 mg q.4-6h. p.r.n. pain. 11. Insulin glargine 30 units subcu h.s., insulin aspart 12 units subcu at 0800 and 7 units subcu a t noon, and 6 units subcu at 1800 hours. 12. Synthroid 100 mcg daily. 13. Metolazone 5 mg p.o. daily. 14. Promethazine 25 mg q.8 hours p.r.n. nausea. 15. Multivitamin daily. CHANGED MEDICATIONS: 1. Klor-Con 40 mEq daily. 2. Metolazone changed to 5 mg p.o. daily. STOPPED MEDICATIONS: 1. Klor-Con 20 mEq on Thursday, Thursday, and 10 mEq Thursday, Thursday, Thursday, , Thursday. 2. The metolazone was changed from 2.5 mg twice a week to 5 mg daily. PLAN: The patient will be discharged to the [facility] in [place]. There she will have PT, OT. Note that she should be on oxygen at 2 L/min. A hospice and palliative care consultation will be performed there at the [facility] at the request of the daughter. The patient will be tse sported on stretcher as she is unable to walk at this time and is a 2-person assist for transfer. TIME: This discharge required 50 minutes, greater than 50% to careers counsellor and coordinate her care and e stablish her appropriate medications. /[id number]/MODL
== END 2017-03-12 15:37 | DRG 291 ==
LOC: EDUNIT# → F2W 13:18
PROVIDERS: ADMIT Internal Medicine; ATTEND Internal Medicine
DX: I50.23 Acute on chronic systolic (congestive) heart failure (principal); L03.115 Cellulitis of right lower limb; L03.116 Cellulitis of left lower limb; G93.40 Encephalopathy, unspecified; I48.2 Chronic atrial fibrillation; N17.9 Acute kidney failure, unspecified; N18.3 Chronic kidney disease, stage 3 (moderate); E66.01 Morbid (severe) obesity due to excess calories; E87.6 Hypokalemia; L89.891 Pressure ulcer of other site, stage 1; L89.301 Pressure ulcer of unspecified buttock, stage 1; L89.151 Pressure ulcer of sacral region, stage 1; J96.10 Chronic respiratory failure, unspecified whether with hypoxia or hypercapnia; E11.40 Type 2 diabetes mellitus with diabetic neuropathy, unspecified; I25.10 Atherosclerotic heart disease of native coronary artery without angina pectoris; R29.6 Repeated falls; Z91.81 History of falling; F32.9 Major depressive disorder, single episode, unspecified; F11.20 Opioid dependence, uncomplicated; E03.9 Hypothyroidism, unspecified; A49.8 Other bacterial infections of unspecified site; I87.8 Other specified disorders of veins; Z79.01 Long term (current) use of anticoagulants; Z68.39 Body mass index [BMI] 39.0-39.9, adult; Z85.42 Personal history of malignant neoplasm of other parts of uterus; Z95.1 Presence of aortocoronary bypass graft; Z79.4 Long term (current) use of insulin; Z66 Do not resuscitate
CPT/HCPCS: 96365; 96366; 97110-GP; 97116-GP; 97163-GP; 97166-GO; 97530-GO; 97530-GP; 97535-GO; G8978-GP-CL; G8979-GP-CJ; G8987-GO-CL; G8988-GO-CJ; G8988-GO-CK; J0690; J1170; J1205; J1815; J1940; J3370